=== PATIENT | female | born 1960 | race Caucasian/White ===

== ENCOUNTER 2017-07-07 07:08 | Day surgery (SDC) | payer OTHER, MEDICAID ==
[2017-07-07] MEDS ORDERED: LR 1,000 ML IV (07:30)
[2017-07-07] MEDS ORDERED: LIDOCAINE 2% INJ 100 MG/5 ML SDV (FOR ANES.) As Ordered (08:29)
[2017-07-07] MEDS ORDERED: PROPOFOL 200 MG/20 ML VIAL As Ordered (08:29)
[2017-07-07] MEDS ORDERED: fentaNYL 100 MCG/2 ML INJECTION (J3010) As Ordered (08:29)
[2017-07-07] MEDS ORDERED: KETOROLAC 60 MG/2 ML VIAL (J1885) As Ordered (08:29)
[2017-07-07] MEDS ORDERED: ONDANSETRON 4MG/2ML VIAL (J2405) As Ordered (08:29)
[2017-07-07] MEDS ORDERED: MIDAZOLAM INJ 2 MG/2 ML VIAL (J2250) As Ordered (08:30)
[2017-07-07] MEDS: BUPIVACAINE HCL 0.5% 10 ML VIAL As Ordered (08:47)
[2017-07-07] MEDS: LIDOCAINE 1% MDV 20ML VIAL As Ordered (08:47)
[2017-07-07] MEDS ORDERED: KETAMINE HCL 200 MG/20 ML VIAL As Ordered (09:19)
== END 2017-07-07 12:10 | disposition home or self-care (01) ==
LOC: M SDC 07:08
DX: M21.611 Bunion of right foot (principal); M20.41 Other hammer toe(s) (acquired), right foot; F43.10 Post-traumatic stress disorder, unspecified; F17.210 Nicotine dependence, cigarettes, uncomplicated
CPT/HCPCS: 28296

== ENCOUNTER 2017-08-08 18:57 | Emergency (ER) | payer OTHER, MEDICAID | END 2017-08-08 19:21 | disposition left against medical advice (07) | LOC: M ED 18:57 | DX: M79.676 Pain in unspecified toe(s) (principal); Z53.21 Procedure and treatment not carried out due to patient leaving prior to being seen by health care provider ==

== ENCOUNTER 2017-08-11 13:26 | Inpatient (IN) | payer OTHER, MEDICAID ==
[2017-08-11 13:54] LABS: ABG BASE EXCESS 1.7 (-2.0-2.0); ABG HCO3 27.2 MEQ/L (22.0-26.0); ABG O2 SATURATION 88.9 % (95.0-99.0); ABG PARTIAL PRESSURE CO2 45.7 mmHg (35.0-45.0); ABG PARTIAL PRESSURE O2 58.1 mmHg (75.0-100.0); ABG STANDARD HCO3 25.8 MEQ/L (22.0-26.0); ABG TOTAL CO2 28.6 MEQ/L (22.0-29.0); ABG pH (ARTERIAL) 7.393 UNITS (7.350-7.450)
[2017-08-11] MEDS: NS 1,000 ML IV (14:05)
[2017-08-11 14:09] LABS: HEMATOCRIT 43.5 % (36.0-47.0); HEMOGLOBIN 15.5 g/dl (12.0-15.5); MEAN CORPUSCULAR HEMOGLOBIN 33.9 pg (27.0-33.0); MEAN CORPUSCULAR HGB CONC 35.6 g/dl (32.0-36.5); MEAN CORPUSCULAR VOLUME 95.2 fl (80.0-96.0); PLATELET COUNT, AUTOMATED 214 10^3/uL (150-450); RED BLOOD COUNT 4.57 10^6/uL (4.00-5.40); RED CELL DISTRIBUTION WIDTH 13.2 % (11.5-14.5)
[2017-08-11 14:24] LABS: CONTROL LINE HCG INT CTR LINE PRESENT; HCG, SERUM QUALITATIVE NEGATIVE (NEGATIVE)
[2017-08-11 14:40] LABS: ACETAMINOPHEN LEVEL < 2.0 UG/ML (10.0-30.0); ALBUMIN 3.9 GM/DL (3.2-5.2); ALKALINE PHOSPHATASE 118 U/L (45-117); ALT/SGPT 86 U/L (12-78); ANION GAP 7 MEQ/L (8-16); AST/SGOT 73 U/L (7-37); BILIRUBIN,DIRECT < 0.1 MG/DL (0.0-0.2); BILIRUBIN,TOTAL 0.3 MG/DL (0.2-1.0); BLOOD UREA NITROGEN 7 MG/DL (7-18); CALCIUM LEVEL 8.6 MG/DL (8.5-10.1); CARBON DIOXIDE LEVEL 30 MEQ/L (21-32); CHLORIDE LEVEL 101 MEQ/L (98-107); CREATININE FOR GFR 0.61 MG/DL (0.55-1.30); ETHYL ALCOHOL (ETHANOL) 0.249 % (0.000-0.010); GLOMERULAR FILTRATION RATE > 60.0 (>51); GLUCOSE, FASTING 70 MG/DL (70-100); POTASSIUM SERUM 3.9 MEQ/L (3.5-5.1); SALICYLATE LEVEL 4.9 MG/DL (5.0-30.0); SODIUM LEVEL 138 MEQ/L (136-145); THYROID STIMULATING HORMONE 0.429 uIU/ML (0.358-3.740); TOTAL PROTEIN 6.9 GM/DL (6.4-8.2)
[2017-08-11 15:28] LABS: CK-MB VALUE MASS 1.8 NG/ML (<3.6); CPK CREATINE PHOSPHOKINASE 118 U/L (26-192); MAGNESIUM LEVEL 2.2 MG/DL (1.8-2.4); MB/CK RELATIVE INDEX 1.52 (< OR =4); TROPONIN I < 0.02 NG/ML (< 0.10)
[2017-08-11] MEDS: D5W/0.45% SODIUM CHLORIDE 1,000 ML IV (16:22)
[2017-08-11] MEDS: D5W/0.9% SODIUM CHLORIDE 1,000 ML IV (19:33)
[2017-08-11 20:25] LABS: ALBUMIN 3.4 GM/DL (3.2-5.2); ALBUMIN/GLOBULIN RATIO 1.31 (1.00-1.93); ALKALINE PHOSPHATASE 108 U/L (45-117); ALT/SGPT 79 U/L (12-78); AST/SGOT 57 U/L (7-37); BILIRUBIN,DIRECT 0.2 MG/DL (0.0-0.2); BILIRUBIN,TOTAL 0.4 MG/DL (0.2-1.0)
[2017-08-11] MEDS: SENOKOT S TAB PO (21:00)
[2017-08-11] MEDS: HEPARIN SOD (PORCINE) 5000 UNITS/ML VIAL SC (22:00)
[2017-08-11] MEDS: ONDANSETRON 4 MG TAB (S0181) PO (23:27)
[2017-08-12 00:13] LABS: AMPHETAMINES LEVEL URINE NEGATIVE (NEGATIVE); BARBITURATES URINE NEGATIVE (NEGATIVE); BENZODIAZEPINES URINE POSITIVE (NEGATIVE); CANNABINOIDS URINE NEGATIVE (NEGATIVE); COCAINE METABOLITE URINE NEGATIVE (NEGATIVE); METHADONE URINE NEGATIVE (NEGATIVE); OPIATES URINE NEGATIVE (NEGATIVE); PHENCYCLIDINE URINE NEGATIVE (NEGATIVE)
[2017-08-12 05:12] LABS: BASO % 0.3 % (0.0-1.0); EOS # 0.1 10^3/uL (0.0-0.50); EOS % 1.3 % (0.0-3.0); HEMOGLOBIN 14.3 g/dl (12.0-15.5); IMMATURE GRANULOCYTE % 0.3 % (0-3.0); LYMPH % 25.3 % (24.0-44.0); MEAN CORPUSCULAR HEMOGLOBIN 33.5 pg (27.0-33.0); MEAN CORPUSCULAR HGB CONC 34.9 g/dl (32.0-36.5); MONO # 0.7 10^3/uL (0.0-0.8); MONO % 8.7 % (0.0-5.0); NEUTROPHILS % 64.1 % (36.0-66.0); PLATELET COUNT, AUTOMATED 194 10^3/uL (150-450); RED BLOOD COUNT 4.27 10^6/uL (4.00-5.40); RED CELL DISTRIBUTION WIDTH 13.3 % (11.5-14.5); WHITE BLOOD COUNT 7.7 10^3/uL (4.0-10.0)
[2017-08-12 05:39] LABS: ALBUMIN 3.1 GM/DL (3.2-5.2); ALBUMIN/GLOBULIN RATIO 1.19 (1.00-1.93); ALKALINE PHOSPHATASE 94 U/L (45-117); ALT/SGPT 64 U/L (12-78); ANION GAP 4 MEQ/L (8-16); AST/SGOT 42 U/L (7-37); BILIRUBIN,TOTAL 0.6 MG/DL (0.2-1.0); BLOOD UREA NITROGEN 7 MG/DL (7-18); CALCIUM LEVEL 7.9 MG/DL (8.5-10.1); CARBON DIOXIDE LEVEL 27 MEQ/L (21-32); CHLORIDE LEVEL 111 MEQ/L (98-107); CREATININE FOR GFR 0.55 MG/DL (0.55-1.30); GLOMERULAR FILTRATION RATE > 60.0 (>51); GLUCOSE, FASTING 89 MG/DL (70-100); POTASSIUM SERUM 3.8 MEQ/L (3.5-5.1); SODIUM LEVEL 142 MEQ/L (136-145); TOTAL PROTEIN 5.7 GM/DL (6.4-8.2)
[2017-08-12] MEDS: D5W/0.9% SODIUM CHLORIDE 1,000 ML IV ×2 (06:20→15:10)
[2017-08-12] MEDS: HEPARIN SOD (PORCINE) 5000 UNITS/ML VIAL SC ×2 (06:20→14:00)
[2017-08-12 08:13] LABS: CPK CREATINE PHOSPHOKINASE 62 U/L (26-192); TROPONIN I < 0.02 NG/ML (< 0.10)
[2017-08-12 08:15] LABS: CK-MB VALUE MASS < 1.0 NG/ML (<3.6); MB/CK RELATIVE INDEX 1.61 (< OR =4)
[2017-08-12] MEDS: PANTOPRAZOLE 40MG TAB (PROTONIX) PO (09:10)
[2017-08-12] MEDS: FOLIC ACID 1 MG TAB PO (09:10)
[2017-08-12] MEDS: SENOKOT S TAB PO (09:11)
[2017-08-12] MEDS: MULTIVITAMINS/MINERALS THERAP 1 TAB PO (09:11)
[2017-08-12] MEDS: THIAMINE 100 MG TAB PO (09:11)
[2017-08-12] MEDS: OLANZapine 5 MG TAB PO (14:28)
[2017-08-12] MEDS: ONDANSETRON 4 MG TAB (S0181) PO (15:40)
== END 2017-08-12 16:00 | DRG 918 ==
LOC: M PCU 19:53 → M ED 13:26 → M ED INP 19:53 → M PCU 21:59
DX: T42.4X4A Poisoning by benzodiazepines, undetermined, initial encounter (principal); F32.9 Major depressive disorder, single episode, unspecified; F10.10 Alcohol abuse, uncomplicated; R74.0 Nonspecific elevation of levels of transaminase and lactic acid dehydrogenase [LDH]; F17.200 Nicotine dependence, unspecified, uncomplicated; Z79.899 Other long term (current) drug therapy; Z98.51 Tubal ligation status

== ENCOUNTER 2017-08-12 16:05 | Inpatient (IN) | payer OTHER, MEDICAID ==
[~2017-08-12 16:05] MED LIST: LORazepam 1 MG TAB PO; LORazepam 2 MG TAB PO; MAALOX 30 ML SUSP *UDC PO; MOM 30ML SUSPENSION UDC PO; diphenhydrAMINE 50 MG CAP PO
[2017-08-12] MEDS: CEPACOL LOZENGE PO (17:38)
[2017-08-12] MEDS: THIAMINE 100 MG TAB PO (17:38)
[2017-08-13] MEDS: FOLIC ACID 1 MG TAB PO (08:44)
[2017-08-13] MEDS: MULTIVITAMINS/MINERALS THERAP 1 TAB PO (08:44)
[2017-08-13] MEDS: THIAMINE 100 MG TAB PO (08:45)
[2017-08-13] MEDS: NICOTINE 7 MG/24 HR TRANSDERMAL TD (08:45)
[2017-08-13] MEDS: CEPACOL LOZENGE PO (08:46)
[2017-08-13] MEDS: ACETAMINOPHEN TAB 650MG DOSE (2X325MG) PO (11:18)
== END 2017-08-13 14:00 | disposition home or self-care (01) | DRG 882 ==
LOC: M PSY 16:05
DX: F43.10 Post-traumatic stress disorder, unspecified (principal); Z79.899 Other long term (current) drug therapy; Z98.51 Tubal ligation status; F17.210 Nicotine dependence, cigarettes, uncomplicated; R74.0 Nonspecific elevation of levels of transaminase and lactic acid dehydrogenase [LDH]

== ENCOUNTER 2017-10-18 11:10 | Emergency (ER) | payer OTHER, MEDICAID ==
[2017-10-18] MEDS: IPRATROPIUM 0.5MG/ALBUTEROL 2.5MG INH SOL UD 3ML (DUONEB)(J7620) NEB (12:11)
[2017-10-18 12:13] LABS: BASO % 0.5 % (0.0-1.0); EOS # 0.1 10^3/uL (0.0-0.50); EOS % 0.9 % (0.0-3.0); HEMATOCRIT 44.6 % (36.0-47.0); HEMOGLOBIN 15.5 g/dl (12.0-15.5); IMMATURE GRANULOCYTE % 0.4 % (0-3.0); LYMPH # 2.1 10^3/uL (1.5-4.5); MEAN CORPUSCULAR HEMOGLOBIN 34.2 pg (27.0-33.0); MEAN CORPUSCULAR HGB CONC 34.8 g/dl (32.0-36.5); MEAN CORPUSCULAR VOLUME 98.5 fl (80.0-96.0); MONO # 0.8 10^3/uL (0.0-0.8); MONO % 8.9 % (0.0-5.0); NEUTROPHILS # 5.5 10^3/uL (1.8-7.7); NEUTROPHILS % 64.3 % (36.0-66.0); PLATELET COUNT, AUTOMATED 226 10^3/uL (150-450); RED BLOOD COUNT 4.53 10^6/uL (4.00-5.40); RED CELL DISTRIBUTION WIDTH 12.4 % (11.5-14.5); WHITE BLOOD COUNT 8.5 10^3/uL (4.0-10.0)
[2017-10-18 12:16] LABS: CARBOXYHEMOGLOBIN 4.6 % (0.0-1.5)
== END 2017-10-18 12:54 | disposition home or self-care (01) ==
LOC: M ED 11:10
DX: J70.5 Respiratory conditions due to smoke inhalation (principal); F33.9 Major depressive disorder, recurrent, unspecified; F41.9 Anxiety disorder, unspecified; Z87.891 Personal history of nicotine dependence; Z79.899 Other long term (current) drug therapy
CPT/HCPCS: 71046

== ENCOUNTER 2017-11-09 00:57 | Emergency (ER) | payer OTHER, MEDICAID | END 2017-11-09 01:13 | disposition left against medical advice (07) | LOC: M ED 01:13 | DX: Z53.29 Procedure and treatment not carried out because of patient's decision for other reasons (principal) ==

== ENCOUNTER 2017-11-09 08:59 | Emergency (ER) | payer MEDICAID, OTHER | END 2017-11-09 09:43 | disposition home or self-care (01) | LOC: M ED 08:59 | DX: B02.9 Zoster without complications (principal); F33.9 Major depressive disorder, recurrent, unspecified; Z79.899 Other long term (current) drug therapy; F17.210 Nicotine dependence, cigarettes, uncomplicated | CPT/HCPCS: 99282 ==

== ENCOUNTER 2017-12-15 12:22 | Emergency (ER) | payer MEDICAID, OTHER | END 2017-12-15 13:55 | disposition home or self-care (01) | LOC: M ED 12:22 | DX: Z76.0 Encounter for issue of repeat prescription (principal); F41.1 Generalized anxiety disorder; F33.9 Major depressive disorder, recurrent, unspecified; B02.9 Zoster without complications; Z79.899 Other long term (current) drug therapy; F10.11 Alcohol abuse, in remission; F17.210 Nicotine dependence, cigarettes, uncomplicated | CPT/HCPCS: 99284 ==

== ENCOUNTER → 2018-01-08 | Outpatient (REF) | payer MEDICAID, OTHER ==
[~2018-01-08] MED LIST changes: +AMBI10TA PO; +AMBI5TAB PO; +BENA25CA4 PO; +BUPR150T3 PO; +BUPR15TA PO; +FOLI1TAB5 PO; +HYDR-3713 PO; -LORazepam 1 MG TAB PO; -LORazepam 2 MG TAB PO; -MAALOX 30 ML SUSP *UDC PO; +MACR100C43 PO; -MOM 30ML SUSPENSION UDC PO; +PATIENT COMMENTS; +THIA100TA PO; +VALA1TAB2 PO; +VENTAER INH; +VITMTA PO; +XANA0.5T PO; +ZOFR4TAB14 PO; -diphenhydrAMINE 50 MG CAP PO
== END ==
LOC: M LAB REF 21:27
PROVIDERS: ATTEND Physician Assistant
DX: L98.9 Disorder of the skin and subcutaneous tissue, unspecified (principal)

== ENCOUNTER 2018-01-25 11:31 | Emergency (ER) | payer MEDICAID, OTHER ==
[2018-01-25] MEDS: ONDANSETRON 4 MG ORAL DISINTEGRATING TAB (Q0162 PER 1MG) PO (12:22)
[2018-01-25 14:04] LABS: KETONE, URINE AUTO RFX NEGATIVE (NEGATIVE); NITRITE, URINE AUTO RFX NEGATIVE (NEGATIVE); RBC, URINE AUTO RFX 28 /HPF (0-3); SPECIFIC GRAVITY UR AUTO RFX 1.008 (1.002-1.035); SQUAM EPITHELIAL CELL UR AURFX 5 /HPF (0-6)
[2018-01-25 14:07] LABS: LEUKOCYTE ESTERASE UR AUTO RFX 3+ (NEGATIVE); WBC, URINE AUTO RFX TNTC /HPF (0-3)
== END 2018-01-25 14:00 | disposition home or self-care (01) ==
LOC: M ED 11:31
DX: N30.00 Acute cystitis without hematuria (principal); B96.20 Unspecified Escherichia coli [E. coli] as the cause of diseases classified elsewhere; R11.2 Nausea with vomiting, unspecified; R19.7 Diarrhea, unspecified; B02.9 Zoster without complications; F10.10 Alcohol abuse, uncomplicated; F17.210 Nicotine dependence, cigarettes, uncomplicated; Z79.899 Other long term (current) drug therapy
CPT/HCPCS: Q0162

== ENCOUNTER → 2018-02-02 | Outpatient (REF) | payer MEDICAID, OTHER ==
[2018-02-02 13:13] LABS: APPEARANCE, URINE HAZY (CLEAR); BACTERIA, URINE AUTO 1+ (NEGATIVE); BILIRUBIN, URINE AUTO NEGATIVE (NEGATIVE); BLOOD, URINE BLOOD NEGATIVE (NEGATIVE); COLOR, URINE YELLOW (YELLOW); GLUCOSE, URINE (UA) AUTO NEGATIVE (NEGATIVE); KETONE, URINE AUTO NEGATIVE (NEGATIVE); LEUKOCYTE ESTERASE, URINE AUTO 3+ (NEGATIVE); MUCUS, URINE SMALL (NEGATIVE); NITRITE, URINE AUTO NEGATIVE (NEGATIVE); PROTEIN, URINE AUTO NEGATIVE (NEGATIVE); RBC, URINE AUTO 6 /HPF (0-3); SPECIFIC GRAVITY URINE AUTO 1.011 (1.002-1.035); SQUAMOUS EPITHELIAL CELL UR AU 2 /HPF (0-6); UROBILINOGEN, URINE AUTO 0.2 mg/dL (0.0-2.0); WBC, URINE AUTO TNTC /HPF (0-3)
== END ==
LOC: M LAB REF 12:55
PROVIDERS: ATTEND Nurse Practitioner Women's Health
DX: N39.0 Urinary tract infection, site not specified (principal)

== ENCOUNTER 2018-05-15 15:57 | Inpatient (IN) | payer MEDICAID ==
[~2018-05-15 15:57] MED LIST changes: +FOLI1TAB11 PO; -FOLI1TAB5 PO
[2018-05-15] MEDS ORDERED: PROPOFOL 1,000 MG/100 ML VIAL As Ordered ONE (16:10)
[2018-05-15 16:21] LABS: BASO # 0.1 10^3/uL (0.0-0.2); BASO % 0.3 % (0.0-1.0); HEMATOCRIT 45.5 % (36.0-47.0); HEMOGLOBIN 15.7 g/dl (12.0-15.5); LYMPH # 1.7 10^3/uL (1.5-4.5); LYMPH % 9.6 % (24.0-44.0); MEAN CORPUSCULAR HEMOGLOBIN 34.3 pg (27.0-33.0); MEAN CORPUSCULAR HGB CONC 34.5 g/dl (32.0-36.5); MEAN CORPUSCULAR VOLUME 99.3 fl (80.0-96.0); MONO % 6.1 % (0.0-5.0); NEUTROPHILS # 14.1 10^3/uL (1.8-7.7); NEUTROPHILS % 81.9 % (36.0-66.0); PLATELET COUNT, AUTOMATED 156 10^3/uL (150-450); RED BLOOD COUNT 4.58 10^6/uL (4.00-5.40); WHITE BLOOD COUNT 17.2 10^3/uL (4.0-10.0)
[2018-05-15 16:44] LABS: INR 0.92; PROTHROMBIN TIME 12.5 SECONDS (12.1-14.4)
[2018-05-15 16:53] LABS: AMPHETAMINES LEVEL URINE NEGATIVE (NEGATIVE); BARBITURATES URINE NEGATIVE (NEGATIVE); BENZODIAZEPINES URINE NEGATIVE (NEGATIVE); CANNABINOIDS URINE NEGATIVE (NEGATIVE); COCAINE METABOLITE URINE NEGATIVE (NEGATIVE); METHADONE URINE NEGATIVE (NEGATIVE); OPIATES URINE NEGATIVE (NEGATIVE); PHENCYCLIDINE URINE NEGATIVE (NEGATIVE)
[2018-05-15] MEDS ORDERED: NS 1,000 ML IV ONE (17:00)
[2018-05-15] MEDS ORDERED: PANTOPRAZOLE 40MG INJ (PROTONIX) (C9113) IV ONE (17:00)
--- NOTE | 2018-05-15 17:00 | REP ---
CT of the brain without IV contrast: There are no comparisons. There is a large right frontal temporal scalp contusion. There is no calvarial fracture. There is no subdural or epidural hematoma. There is no acute intracranial hemorrhage otherwise. Ventricles are normal size and midline. The cortical stripe is unremarkable. The visualized paranasal sinuses and mastoid air cells are clear. Impression: Large right frontal temporal scalp contusion. Otherwise, negative CT study of the brain. Electronically Signed by Saul Iverson MD 05/15/2018 04:52 P
--- NOTE | 2018-05-15 17:08 | REP ---
Maxillofacial CT: Axial images are acquired helical scanning and a reformatted sagittal and coronal projections. There is a large right frontal temporal scalp contusion. There is no nasal bone fracture. There is no zygoma fracture. There is no orbit fracture. No paranasal sinus fracture. The mastoid air cells are clear. There is no mandibular fracture. The skull base and sella turcica are unremarkable. Impression: No maxillofacial fracture is identified. There is a nasogastric tube and endotracheal tube. There is a large right frontal temporal scalp contusion. Electronically Signed by Saul Iverson MD 05/15/2018 05:00 P
[2018-05-15 17:20] LABS: ACETAMINOPHEN LEVEL < 2.0 UG/ML (10.0-30.0); ALBUMIN 4.4 GM/DL (3.2-5.2); ALT/SGPT 70 U/L (12-78); BILIRUBIN,DIRECT 0.3 MG/DL (0.0-0.2); BILIRUBIN,TOTAL 0.9 MG/DL (0.2-1.0); BLOOD UREA NITROGEN 10 MG/DL (7-18); CALCIUM LEVEL 8.5 MG/DL (8.5-10.1); CARBON DIOXIDE LEVEL 15 MEQ/L (21-32); CHLORIDE LEVEL 84 MEQ/L (98-107); CPK CREATINE PHOSPHOKINASE 799 U/L (26-192); CREATININE FOR GFR 1.14 MG/DL (0.55-1.30); ETHYL ALCOHOL (ETHANOL) < 0.003 % (0.000-0.010); GLOMERULAR FILTRATION RATE 51.9 (>51); GLUCOSE, FASTING 153 MG/DL (70-100); MB/CK RELATIVE INDEX 2.63 (< OR =4); POTASSIUM SERUM 3.8 MEQ/L (3.5-5.1); SODIUM LEVEL 123 MEQ/L (136-145); THYROID STIMULATING HORMONE 0.524 uIU/ML (0.358-3.740); TOTAL PROTEIN 7.5 GM/DL (6.4-8.2); TROPONIN I 0.02 NG/ML (< 0.10)
[2018-05-15] MEDS ORDERED: MIDAZOLAM HCL 50 MG in D5W 40 ML IV SCH (17:30)
[2018-05-15] MEDS ORDERED: MIDAZOLAM INJ 2 MG/2 ML VIAL (J2250) IV ONE (17:30)
[2018-05-15] MEDS ORDERED: ETOMIDATE INJ 20MG/10ML VIAL IV STA (17:34)
[2018-05-15] MEDS ORDERED: SUCCINYLCHOLINE INJ 200 MG/10 ML VIAL (J0330) IV STA (17:34)
[2018-05-15] MEDS ORDERED: PROPOFOL 1,000 MG in APPROPRIATE DILUENT 1 EA IV SCH (17:40)
[2018-05-15 17:49] LABS: ABG BASE EXCESS -3.4 (-2.0-2.0); ABG HCO3 20.5 MEQ/L (22.0-26.0); ABG O2 SATURATION 99.5 % (95.0-99.0); ABG PARTIAL PRESSURE CO2 33.7 mmHg (35.0-45.0); ABG PARTIAL PRESSURE O2 234.9 mmHg (75.0-100.0); ABG STANDARD HCO3 21.7 MEQ/L (22.0-26.0); ABG TOTAL CO2 21.6 MEQ/L (22.0-29.0); ABG pH (ARTERIAL) 7.403 UNITS (7.350-7.450)
[2018-05-15] MEDS ORDERED: REFRIGERATOR IV KEYS XX PRN (18:15)
[2018-05-15] MEDS ORDERED: cefTRIAXone SOD 1 GM in D5W MINI-BAG PLUS 50 ML IV ONE (18:15)
[2018-05-15] MEDS ORDERED: ETOMIDATE INJ 20MG/10ML VIAL ONE (18:28)
[2018-05-15] MEDS ORDERED: SUCCINYLCHOLINE 100 MG/5 ML SYRINGE (J0330) ONE (18:28)
[2018-05-15] MEDS: PROPOFOL 1,000 MG in APPROPRIATE DILUENT 1 EA IV SCH ×2 (18:45→21:52)
[2018-05-15 19:09] LABS: PHOSPHORUS LEVEL 3.7 MG/DL (2.5-4.9)
[2018-05-15 20:00] VITALS: BP 125/79
[2018-05-15] MEDS: MIDAZOLAM HCL 100 MG in D5W 80 ML IV SCH (20:00)
[2018-05-15] MEDS ORDERED: MULTIVITAMIN -ADULT INJECTION 10 ML, THIAMINE INJection 100 MG, FOLIC ACID 1 MG in NS 1... IV ONE (20:00)
[2018-05-15 20:46] VITALS: O2SAT 100
[2018-05-15] MEDS: NS 1,000 ML IV SCH (20:49)
[2018-05-15] MEDS: OCTREOTIDE ACETATE 1,200 MCG in NS 238.8 ML IV SCH (20:50)
[2018-05-15] MEDS: PANTOPRAZOLE SODIUM 40 MG in D5W 50 ML IV SCH (20:52)
[2018-05-15] MEDS: CHLORHEXIDINE GLUCONATE 0.12 % 15ML UDC (PERIDEX ORAL RINSE) MT SCH (20:52)
[2018-05-15 21:00] VITALS: BP 106/65
--- NOTE | 2018-05-15 21:13 | ECGEPIP ---
Stationary ECG Study 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
--- NOTE | 2018-05-15 21:33 | HPE ---
DATE OF ADMISSION: 05/15/2018 Patient is a 57-year-old female with a past medical history of depression and posttraumatic stress disorder (PTSD). Patient also with a history of alcohol abuse and possible cirrhosis. History was obtained from the chart and from emergency department (ED), as patient is unresponsive and intubated and unable to provide a history. There is no family or friends at the bedside, as well. As per Emergency Medical Service (EMS), patient had reportedly fallen yesterday and bruised her right eye and the front of her face. She had sustained another fall today, which was unwitnessed and EMS was called by a concerned neighbor, who had seen her yesterday and had gone back to check on her today. As per EMS, patient also had been drinking alcohol leading up to these falls. Patient was unresponsive on their arrival and she was also noted to have a seizure en route to the ED. Upon arrival to the ED, patient was mumbling, but not verbalizing clearly and not able to follow commands appropriately. She was also noted to have what appeared to be possible hematemesis on her, as well as blood from a scalp laceration. The patient was intubated for airway protection and was given normal saline running with 1 liter bolus. She also had lico done to her right posterior scalp laceration. Patient was given etomidate and succinylcholine for intubation and later started on a propofol drip at supratherapeutic doses, given her agitation. Patient required multiple ED staff to restrain her, as she continued to be agitated and combative. Patient had an orogastric gastrostomy (OG) tube placed to suction, which had dark red, bloody output. She was also transported for imaging of her CT head, spine and sinuses. PAST MEDICAL AND SURGICAL HISTORY: 1. Depression and posttraumatic stress disorder (PTSD) with an admission for a prior suicide attempt. 2. Alcohol abuse. Reportedly was on lactulose, as per EMS. 3. History of right bunionectomy and hammer toe. 4. Tubal ligation and reversal. 5. History of shingles. SOCIAL HISTORY: As per chart, patient is . She was unemployed and getting [employer] pension from her , who had . She reportedly lives alone. There is documentation that she has a daughter, although there was no family here in the ED. There are also reports of a history of alcohol abuse in her previous documentation and possible marijuana use in the past. ALLERGIES: No known medication allergies. HOME MEDICATIONS: Unclear. Previously reported to be on: - Wellbutrin - Ambien - Xanax - Valacyclovir As well as previous documentation for: - thiamine - folate - multivitamin PHYSICAL EXAMINATION: Temperature 98.3, pulse 111, respiratory rate 30, blood pressure 150/81, saturating 100% on the ventilator; initially it was on 100% FiO2, later brought down to 40%. GENERAL: Patient is lying in bed, noted to have ecchymosis on her right eye, but with extreme periorbital edema, as well as edema in her front scalp. She has a lesser amount of bruising noted in her left periorbital region. She is also noted to have dried blood in her hair and has a posterior scalp lesion with lico in place. Patient also has some mild bruising noted on to the side of her face. She did not appear to have any significant bruising in her hands or on her knees or on her abdomen. She is intubated and has an orogastric gastrostomy (OG) tube in place. HEENT: Unable to open up her right eye, given the amount of swelling and edema. Her left eye pupil is reactive to light. She has some dried blood secretions from her mouth, as well as dried blood noted in her hair. The previously described contusion and swelling in her frontal scalp is also seen. CARDIOVASCULAR SYSTEM: Tachycardic. Normal S1, S2. Unable to appreciate any murmurs. LUNGS: Coarse ventilated breath sounds bilaterally, but no wheezing, rales or rhonchi. ABDOMEN: Soft. Does not appear distended. EXTREMITIES: There is no lower extremity edema. There is no significant bruising noted to her lower extremities. LABORATORY DATA: WBC 17.2, hemoglobin 15.7, platelets 156. Chemistry: Sodium 123, potassium 3.8, chloride 84, bicarbonate 15, BUN 10, creatinine 1.14, anion gap 24, glucose 153, initial lactate was 13.7. Total bilirubin 0.9, AST 91, ALT 70, alkaline phosphatase 147, ammonia level 113. CPK 799. Troponin 0.02. TSH was normal. Coagulation profile: INR 0.92. Urinary toxicology screen negative. Tylenol and salicylate levels were negative. Alcohol level was also negative. Arterial blood gas (ABG): pH was 7.403, pCO2 33.7, pO2 234.9 IMAGING: Head CT and maxillofacial CT did not show any subdural or epidural hematoma. There was no acute intracranial hemorrhage. There is a large right frontal temporal scalp contusion, but no intraparenchymal bleeding. In the maxillofacial CT, there are no fractures identified, no mandibular fracture or paranasal sinus fracture and no nasal bone fracture. There is also no zygoma fracture or orbital fracture. On the chest x-ray, the initial chest x-ray showed a right main stem intubation. Repeat chest x-ray showed the endotracheal (ET) tube at the level of the kip and was pulled back reportedly 1 cm. There are no focal opacities in the lung page. There are no pleural effusions. ASSESSMENT AND PLAN: Patient is a 57-year-old female with a reported medical history of alcohol abuse, depression and posttraumatic stress disorder (PTSD), who was brought in my EMS after being found unresponsive in the home with a reported history of falls, possibly in the setting of alcohol use. She was noted to have a contusion on her right eye and her right frontal scalp, as well as a scalp laceration in the posterior of her scalp. She also had what appeared to be possible hematemesis as well. On arrival, patient was minimally responsive and was intubated for airway protection. She had imaging done, which did not show any acute hematoma, intraparenchymal bleed in her brain, except for the scalp laceration. She did not have any evidence of fractures to any of her facial bones on the maxillofacial CT. 1. Neurologic. Patient presented with altered mental status, has a history of alcohol abuse, as well as depression. There was report that she may have been on lactulose at home, but is unable to confirm at this time. She did have an elevated ammonia level on labs. Her urine toxicology was negative and her alcohol level was negative. Patient's altered mental status and seizure may have been in the setting of alcohol withdrawal, especially given her history of alcohol abuse and her negative alcohol level on admission to the ED. She was also on Wellbutrin potentially as an outpatient, which can also lower her seizure threshold. Patient may also have a component of hepatic encephalopathy as well, contributing to her altered mental status. There was no evidence of any epidural bleed or subdural hematoma on her head CT. She did have a laceration and a contusion on her right frontal scalp and her right eye secondary to falls. Continue with seizure precautions. Given the possibility of hepatic encephalopathy, will give her rifaximin, but hold off on lactulose, given her possible gastrointestinal (GI) bleed. Continue with sedation while intubated. She is on propofol and still agitated; therefore, will add a Versed drip as well, especially given the concern for alcohol withdrawal. Will supplement with thiamine, folate and multivitamin. 2. Cardiovascular. Patient was hypertensive and tachycardic in the ED, likely in the setting of alcohol withdrawal. She had a femoral triple lumen catheter placed for intravenous (IV) access. We will continue to monitor her blood pressures at this time. Her lactate was elevated, possibly in the setting of her seizure. She was given 1 liter normal saline bolus. We will give her another liter with a banana bag and continue with normal saline for fluid hydration and follow up a repeat lactate. We will get an EKG given her tachycardia and repeat a troponin and cardiac markers. 3. Pulmonary. Patient was intubated for airway protection in the setting of altered mental status. Her chest x-ray did not show any focal opacities or infiltrates. Will continue her with pressure-regulated volume control (PRVC) in the setting of 420/14/40 and 5 and follow up with daily ABGs and chest x-rays while intubated. Continue with vent bundle with head of bed elevation and chlorhexidine mouthwash. 4. Gastrointestinal (GI). Patient has a history of alcohol abuse, possible cirrhosis, given her increased ammonia level and potentially being on lactulose as an outpatient. Patient appeared to have an episode of hematemesis, likely in the setting of her alcohol abuse, with a questionable history of esophageal varices. Will continue with a proton pump inhibitor (PPI) drip and octreotide, given the concern for esophageal varices. Will continue with ceftriaxone for spontaneous bacterial peritonitis (SBP) prophylaxis. Will get an abdominal ultrasound to further evaluate. Will continue to monitor her liver function. Appreciate GI consult for her acute GI bleed. She has an orogastric gastrostomy (OG) tube in for low intermittent suction and we will keep her nothing by mouth for now. Patient has two 20 gauge IVs in the antecubital, as well as a femoral triple lumen catheter for IV access. She has an active type and screen and we will continue to trend her CBCs. 5. Renal. Patient is noted to be hyponatremic, likely in the setting of her alcohol abuse, possible beer potomania versus cirrhosis. She was also noted to have some mildly elevated creatinine, likely prerenal, secondary to decreased by mouth intake. Will continue to monitor her renal function. She has a [place] placed. Will monitor her input and output and monitor her electrolytes and replete as needed. She is getting normal saline for maintenance fluids and is status post one bolus 1 liter normal saline as well with the banana bag. Patient's fingerstick glucose was elevated. There is no documented history of diabetes. Will continue with fingerstick glucose checks and coverage with insulin if needed. 6. DVT prophylaxis with sequential compression devices (SCDs) given acute GI bleed. 7. FULL CODE: Will attempt to get family contact information. Total critical care time spent, not including any procedures: Approximately 2 hours and 10 minutes.
[2018-05-15 22:00] VITALS: BP 110/72
[2018-05-15 22:57] LABS: MB/CK RELATIVE INDEX 2.46 (< OR =4); TROPONIN I 2.11 NG/ML (< 0.10)
[2018-05-15 23:00] VITALS: BP 121/73
[2018-05-16] VITALS (26 sets, daily range): BP systolic 110–137; BP diastolic 62–90; O2SAT 98–100
[2018-05-16] MEDS: fentaNYL 100 MCG/2 ML INJECTION (J3010) IV PRN ×4 (00:26→08:00)
[2018-05-16] MEDS: PANTOPRAZOLE SODIUM 40 MG in D5W 50 ML IV SCH ×6 (00:40→20:11)
[2018-05-16] MEDS: NS 1,000 ML IV SCH ×2 (00:44→02:30)
[2018-05-16] MEDS: PROPOFOL 1,000 MG in APPROPRIATE DILUENT 1 EA IV SCH ×5 (02:25→23:53)
--- NOTE | 2018-05-16 04:33 | REP ---
Clinical: Cirrhosis. Technique: Real time black scale ultrasound examination using curved array transducer. Findings: The liver is slightly increased in echotexture and density with a subtle micronodular contour consistent with a history of cirrhosis. No focal hepatic lesion identified. Spleen is normal in size, appearance and echogenicity. Spleen measures 9.9 x 5.1 x 6.5 cm. The pancreas is incompletely evaluated due to interposed bowel gas but visualized portions appear normal. Gallbladder demonstrates small amount of layering sludge without wall thickening or pericholecystic fluid. No biliary ductal dilatation is appreciated and the common bile duct measures 4.3 mm diameter. Bilateral kidneys are normal in appearance and echogenicity without hydronephrosis. Right kidney measures 10.4 x 4.7 x 4.3 cm. Left kidney measures 10.9 x 5.0 x 4.9 cm. Abdominal aorta appears normal and measures 2 cm maximal diameter. No ascites. Impression: Findings consistent with cirrhosis. No focal hepatic lesion identified. Electronically Signed by Christian Butcher MD 05/16/2018 04:24 A
[2018-05-16 04:52] LABS: HEMATOCRIT 31.9 % (36.0-47.0); MEAN CORPUSCULAR HEMOGLOBIN 34.3 pg (27.0-33.0); MEAN CORPUSCULAR HGB CONC 35.4 g/dl (32.0-36.5); PLATELET COUNT, AUTOMATED 102 10^3/uL (150-450); RED BLOOD COUNT 3.29 10^6/uL (4.00-5.40); WHITE BLOOD COUNT 10.6 10^3/uL (4.0-10.0)
[2018-05-16 04:53] LABS: HEMOGLOBIN 11.3 g/dl (12.0-15.5)
[2018-05-16 05:35] LABS: ABG BASE EXCESS -3.2 (-2.0-2.0); ABG HCO3 21.3 MEQ/L (22.0-26.0); ABG O2 SATURATION 98.3 % (95.0-99.0); ABG PARTIAL PRESSURE CO2 36.2 mmHg (35.0-45.0); ABG PARTIAL PRESSURE O2 119.1 mmHg (75.0-100.0); ABG STANDARD HCO3 21.8 MEQ/L (22.0-26.0); ABG TOTAL CO2 22.4 MEQ/L (22.0-29.0); ABG pH (ARTERIAL) 7.387 UNITS (7.350-7.450)
[2018-05-16 05:45] LABS: ALBUMIN 2.9 GM/DL (3.2-5.2); ALT/SGPT 47 U/L (12-78); BILIRUBIN,TOTAL 0.8 MG/DL (0.2-1.0); BLOOD UREA NITROGEN 9 MG/DL (7-18); CALCIUM LEVEL 7.2 MG/DL (8.5-10.1); CARBON DIOXIDE LEVEL 24 MEQ/L (21-32); CHLORIDE LEVEL 100 MEQ/L (98-107); CREATININE FOR GFR 0.68 MG/DL (0.55-1.30); GLOMERULAR FILTRATION RATE > 60.0 (>51); GLUCOSE, FASTING 128 MG/DL (70-100); MAGNESIUM LEVEL 2.1 MG/DL (1.8-2.4); PHOSPHORUS LEVEL 2.7 MG/DL (2.5-4.9); POTASSIUM SERUM 3.6 MEQ/L (3.5-5.1); SODIUM LEVEL 133 MEQ/L (136-145); TOTAL PROTEIN 5.2 GM/DL (6.4-8.2); TROPONIN I 1.77 NG/ML (< 0.10)
--- NOTE | 2018-05-16 06:57 | RO ---
DATE OF PROCEDURE: 05/15/2018 INDICATION: Venous access. PREPROCEDURE DIAGNOSIS: Gastrointestinal (GI) bleed. POSTPROCEDURE DIAGNOSIS: GI bleed. PROCEDURE: Central line. SURGEON: Dr. Heydi Bearden CONSENT: The procedure was performed emergently and permission was implied because of the emergent nature. There was no family at bedside to discuss consent with. PROCEDURE SUMMARY: A time out was performed. My hands were washed immediately prior to the procedure. Full sterile technique was maintained throughout the procedure including surgical cap, mask with protective eye wear, full gown and sterile gloves. The patient was flat in the bed. Her left femoral groin region was prepped using chlorhexidine and Betadine and draped in sterile fashion using a fenestrated drape. A sterile probe cover was employed. The femoral vein was identified using the ultrasound. Anesthesia was achieved using 1% lidocaine. Using real time out of plane guidance, the introducer needle was inserted into the femoral vein under direct ultrasound visualization. Venous blood was withdrawn. The syringe was removed and a guidewire was advanced into the introducer needle. The introducer needle was then removed over the guidewire. A small incision was made at the skin surface with a scalpel and a dilator was exchanged over the guidewire. After appropriate dilation was obtained, the dilator was exchanged over the wire for a triple lumen central venous catheter. The wire was removed and the catheter was sutured in place. A sterile CHD impregnated dressing was placed over the catheter at the insertion site. The patient tolerated the procedure without any hemodynamic compromise. At the time of procedure completion, all ports were aspirated and flushed properly. Estimated blood loss was less than 5 mL. [facility]
--- NOTE | 2018-05-16 07:59 | REP ---
CT of the cervical spine without IV contrast: There are no comparisons. Axial images are acquired helical scanning and a reformatted sagittal and coronal projections. There is an endotracheal tube and nasogastric tube. The skull base, C1-C2 are unremarkable except for osteoarthritis at the Nadira and anterior arch of C1. Vertebral body heights and alignment are normal. There is no listhesis. There is multilevel degenerative disc disease from C3-C7. The facet articulations are normally aligned. The prevertebral soft tissues are unremarkable. There are no posterior element fractures. Impression: There is no fracture or listhesis. There is multilevel degenerative disc disease. There is an endotracheal tube and nasogastric tube. Depending on symptomatology consider follow-up MRI to evaluate for nerve root compression or cord injury. Electronically Signed by Saul Iverson MD 05/16/2018 07:50 A
--- NOTE | 2018-05-16 08:02 | REP ---
Kurt portable chest, single AP supine view, 05:09 p.m.: The endotracheal tube has been repositioned from the study at 05:04 p.m. and of the tip is at the kip but not selectively in the right or left main stem bronchi. There is a nasogastric tube terminating satisfactorily in the stomach. Lung page are clear. Cardiac size is normal. Electronically Signed by Saul Iverson MD 05/16/2018 07:54 A
--- NOTE | 2018-05-16 08:04 | REP ---
Portable chest, single AP supine view, 05:04 p.m.: Comparison is the 2017. There is an endotracheal tube with the tip selectively in the bronchus intermedius. Lung page are clear. Cardiac size is normal. There is a nasogastric tube terminating satisfactorily in the stomach. Electronically Signed by Saul Iverson MD 05/16/2018 07:56 A
[2018-05-16] MEDS: FOLIC ACID 1 MG TAB PO SCH (08:08)
[2018-05-16] MEDS: THIAMINE HCL 200 MG/2 ML VIAL (J3411) IV SCH (08:08)
[2018-05-16] MEDS: MULTIVITAMINS/MINERALS THERAP 1 TAB PO SCH (08:08)
[2018-05-16] MEDS: CHLORHEXIDINE GLUCONATE 0.12 % 15ML UDC (PERIDEX ORAL RINSE) MT SCH ×2 (08:08→21:21)
[2018-05-16] MEDS: D5W 1,000 ML IV SCH ×3 (08:15→20:02)
--- NOTE | 2018-05-16 08:19 | REP ---
Portable chest, 06:57 a.m., single AP semi upright view: Comparison is 05/15/2018 and 05:09 p.m.: The patient is rotated. The endotracheal tube remains at the kip but not selectively in the right or left main stem bronchi. The lung page remain clear. Cardiac size is normal. The nasogastric tube remains in satisfactory position, terminating in the stomach. There is a electronic device superimposed over the chest. Electronically Signed by Saul Iverson MD 05/16/2018 08:11 A
[2018-05-16] MEDS ORDERED: cefTRIAXone SOD 2 GM in D5W MINI-BAG PLUS 50 ML IV SCH (09:00)
[2018-05-16] MEDS: MIDAZOLAM HCL 100 MG in D5W 80 ML IV SCH (12:57)
[2018-05-16 13:43] LABS: BLOOD UREA NITROGEN 7 MG/DL (7-18); CALCIUM LEVEL 7.4 MG/DL (8.5-10.1); CARBON DIOXIDE LEVEL 25 MEQ/L (21-32); CHLORIDE LEVEL 101 MEQ/L (98-107); CREATININE FOR GFR 0.77 MG/DL (0.55-1.30); GLOMERULAR FILTRATION RATE > 60.0 (>51); GLUCOSE, FASTING 195 MG/DL (70-100); POTASSIUM SERUM 3.7 MEQ/L (3.5-5.1); SODIUM LEVEL 134 MEQ/L (136-145)
--- NOTE | 2018-05-16 14:00 | CCN ---
DATE: 05/16/2018 The patient was seen and examined this morning during bedside rounds. Overnight, the patient has remained sedated on propofol and Versed. She had no fevers overnight. Her blood pressures have remained stable. PHYSICAL EXAMINATION: Temperature 98.3, pulse 98, respirations 24, blood pressure 129/90, oxygen saturation 98% on 4 liters FiO2. GENERAL: The patient is lying, intubated and sedated. She continues to have ecchymosis around her right eye and to a lesser degree on her left eye. The previously noted right periorbital edema has improved. She does continue to have edema in her right frontal scalp area. The patient also has some mild bruising noted to the side of her face. HEENT: Eyes are able to be opened now and her pupils are small but reactive bilaterally. NECK: Supple. Trachea is midline. No palpable adenopathy. CARDIOVASCULAR: Regular rate and rhythm. Normal S1, S2. There appears to be an extra heart sound versus a faint murmur. LUNGS: Coarse ventilator breath sounds bilaterally. No wheezing, rales or rhonchi. ABDOMEN: Soft, does not appear distended. Did not appear to have a significant fluid wave. EXTREMITIES: There is no lower extremity bilaterally. No significant bruising noted to her lower extremities. LABORATORIES: WBC 10.6, hemoglobin 11.3, platelets 102. Chemistry: Sodium 133, potassium 3.6, chloride 100, bicarbonate 24, BUN 9, creatinine 0.68, glucose 128, CPK increased to 1587, troponin decreasing to 1.77. ABG showed pH 7.387, PCO2 of 36.2, PO2 of 119.1. Lactic acid decreased to 2.9. IMAGING: Abdominal ultrasound showed evidence of cirrhosis. There are no gallstones or biliary duct dilation. Pancreas was incompletely evaluated but the portions that were seen appeared normal. There is no evidence of ascites. No hydronephrosis noted in the kidneys bilaterally. Chest x-ray this morning showed the endotracheal tube at the level of the kip. She appears to be rotated slightly. There are some coarse increased interstitial markings that appear unchanged. ASSESSMENT AND PLAN: The patient is a 57-year-old female with a history of alcohol abuse, depression, posttraumatic stress disorder (PTSD), who was brought in by emergency medical services (EMS) after being found unresponsive in the home with a reported history of falls, possibly in the setting of alcohol use. The patient was noted to have a contusion on her right eye and her right frontal scalp, as well as a bleeding scalp laceration in the posterior part of her head. She also had possible hematemesis on arrival to the emergency department as well. The patient was minimally responsive and was intubated for airway protection. She had stat imaging done of her head and C-spine, which did not show any hematoma in the brain or bleeding and no evidence of acute fractures to the facial bones or in her spine. 1. Neurologic: The patient presented with altered mental status and has a history of alcohol abuse and depression. She also reportedly had a seizure en route to the hospital. Her alcohol level on admission was negative and her urine toxicology was negative. Given her history of alcohol abuse and seizures, the patient may have been in alcohol withdrawal leading to her seizures and altered mental status. She also had elevated ammonia level on admission and likely with hepatic encephalopathy also contributing to her altered mental status. Her CT of the head on admission did not show any evidence of epidural bleed or subdural hematoma. She does have superficial laceration, ecchymosis and contusion on her right frontal scalp and posterior scalp. The patient is intubated and sedated. She is on propofol and Versed drip for her alcohol withdrawal. Continue with seizure precautions. Continue with rifaximin for hepatic encephalopathy, but we will continue to hold lactulose given possible gastrointestinal bleed. Continue supplementation with thiamine, folate and multivitamin. The patient had received banana bag yesterday on admission to intensive care unit (ICU). 2. Cardiovascular: The patient was hypertensive and tachycardic in the emergency department, likely in the setting of alcohol withdrawal. She had a femoral triple lumen catheter placed for IV access. Her blood pressure and heart rate has improved. Her lactate was significantly elevated on arrival, likely secondary to her seizure. Her repeat lactate showed significant improvement. We will continue to monitor her blood pressure. The patient had increased troponin, likely in the setting of demand ischemia given her significant hypertension and tachycardia on admission. Her repeat troponin showed that it was trending down. Her CPK was still trending up, likely due to her seizure as well as combative in the emergency department, requiring emergency department staff to physically restrain her at times. We will get an echocardiogram given her troponinemia . 3. Pulmonary: The patient was intubated for airway protection in the setting of acute altered mental status. Her chest x-ray on admission did not show any focal opacities or infiltrates. She did have some coarse increased markings bilaterally, which do not appear changed. Continue her on pressure regulated volume control (PRVC) with 420/14/40/5 and followup daily ABG and chest x-ray while intubated. Continue with head of bed elevation and chlorhexidine mouthwash. Will hold off on her sedation vacation this morning given her acute alcohol withdrawal. We will attempt a sedation hold tomorrow if possible. 4. Gastrointestinal: The patient has a history of alcohol abuse and cirrhosis, which was seen on her abdominal ultrasound done yesterday. There was no significant ascites noted. No gallstone or biliary duct dilation. She did have a possible episode of hematemesis on arrival to the emergency department and her orogastric tube did have some dark maroon colored output. The patient is on Protonix drip and octreotide given a concern for possible esophageal varices. The patient was started on ceftriaxone for SBE prophylaxis; however, her abdominal ultrasound did not show any significant ascites, so can likely discontinue the antibiotics. We will continue to monitor her liver function. Appreciate GI consult for her acute GI bleed. We will keep her nothing by mouth and followup with their recommendations. The patient has an active type and screen. Her hemoglobin did drop down approximately 4 units from admission, some of which is likely dilutional. We will followup a repeat CBC in 8 hours. The patient has two 20-gauge IVs in her antecubital region, as well as a femoral triple lumen catheter for IV access. 5. Renal: The patient was hyponatremic, likely in the setting of alcohol abuse and cirrhosis. Unclear if this is chronic or not for the patient, as we do not have any prior laboratories. Her sodium today did increase potentially too rapidly if she does have a component of chronic hyponatremia. We will discontinue the normal saline fluids and start her on D5W and followup a repeat sodium level in 4 hours. Her creatinine has improved. She likely had some mild acute kidney injury from decreased oral intake. We will continue to monitor her electrolytes and replete as needed. Continue with fingerstick glucose checks and coverage if needed. 6. Deep vein thrombosis (DVT) prophylaxis with sequential compression device (SCD) given acute gastrointestinal bleed. FULL CODE. The patient has a contact number in her chart for a possible daughter. We will attempt to contact and leave a message. There have been no family or friends visiting or calling yet. Total critical care time spent, not including any procedures, approximately 1 hour and 10 minutes. ROSY
[2018-05-16] MEDS ORDERED: D5W 500 ML IV ONE (14:30)
[2018-05-16 18:31] LABS: HEMATOCRIT 30.5 % (36.0-47.0); HEMOGLOBIN 10.6 g/dl (12.0-15.5); MEAN CORPUSCULAR HEMOGLOBIN 34.3 pg (27.0-33.0); MEAN CORPUSCULAR HGB CONC 34.8 g/dl (32.0-36.5); MEAN CORPUSCULAR VOLUME 98.7 fl (80.0-96.0); PLATELET COUNT, AUTOMATED 100 10^3/uL (150-450); RED BLOOD COUNT 3.09 10^6/uL (4.00-5.40); WHITE BLOOD COUNT 8.5 10^3/uL (4.0-10.0)
[2018-05-16 18:48] LABS: BLOOD UREA NITROGEN 5 MG/DL (7-18); CALCIUM LEVEL 7.2 MG/DL (8.5-10.1); CARBON DIOXIDE LEVEL 26 MEQ/L (21-32); CHLORIDE LEVEL 102 MEQ/L (98-107); CREATININE FOR GFR 0.74 MG/DL (0.55-1.30); GLOMERULAR FILTRATION RATE > 60.0 (>51); GLUCOSE, FASTING 141 MG/DL (70-100); POTASSIUM SERUM 3.6 MEQ/L (3.5-5.1); SODIUM LEVEL 135 MEQ/L (136-145)
[2018-05-16] MEDS ORDERED: D5W 1,000 ML IV ONE (19:30)
[2018-05-16] MEDS: OCTREOTIDE ACETATE 1,200 MCG in NS 238.8 ML IV SCH (20:11)
[2018-05-16] MEDS: ALBUTEROL SULFATE 2.5 MG/0.5 ML INH NEB SOLN NEB PRN (20:21)
[2018-05-16] MEDS: DESMOPRESSIN ACETATE 2 MCG in NS 50 ML IV SCH (20:33)
[2018-05-17] VITALS (27 sets, daily range): BP systolic 126–163; BP diastolic 71–98; O2SAT 97–99
[2018-05-17] MEDS: ALBUTEROL SULFATE 2.5 MG/0.5 ML INH NEB SOLN NEB PRN ×3 (00:14→19:05)
[2018-05-17 00:16] LABS: BLOOD UREA NITROGEN 5 MG/DL (7-18); CALCIUM LEVEL 7.1 MG/DL (8.5-10.1); CARBON DIOXIDE LEVEL 25 MEQ/L (21-32); CHLORIDE LEVEL 98 MEQ/L (98-107); CREATININE FOR GFR 0.77 MG/DL (0.55-1.30); GLOMERULAR FILTRATION RATE > 60.0 (>51); GLUCOSE, FASTING 133 MG/DL (70-100); POTASSIUM SERUM 3.4 MEQ/L (3.5-5.1); SODIUM LEVEL 131 MEQ/L (136-145)
[2018-05-17] MEDS ORDERED: KCL 20MEQ IN 100ML SWI (KRUN) 20 MEQ in APPROPRIATE DILUENT 1 EA IV ONE ×2 (00:30)
[2018-05-17] MEDS: PANTOPRAZOLE SODIUM 40 MG in D5W 50 ML IV SCH ×5 (00:46→20:53)
[2018-05-17] MEDS: DESMOPRESSIN ACETATE 2 MCG in NS 50 ML IV SCH (01:45)
[2018-05-17] MEDS: PROPOFOL 1,000 MG in APPROPRIATE DILUENT 1 EA IV SCH ×4 (03:56→21:39)
[2018-05-17 05:15] LABS: HEMOGLOBIN 10.3 g/dl (12.0-15.5); MEAN CORPUSCULAR HGB CONC 34.3 g/dl (32.0-36.5); PLATELET COUNT, AUTOMATED 101 10^3/uL (150-450); RED BLOOD COUNT 3.03 10^6/uL (4.00-5.40); WHITE BLOOD COUNT 9.2 10^3/uL (4.0-10.0)
[2018-05-17 05:59] LABS: ABG BASE EXCESS -0.3 (-2.0-2.0); ABG HCO3 23.3 MEQ/L (22.0-26.0); ABG O2 SATURATION 98.7 % (95.0-99.0); ABG PARTIAL PRESSURE CO2 34.6 mmHg (35.0-45.0); ABG PARTIAL PRESSURE O2 136.1 mmHg (75.0-100.0); ABG STANDARD HCO3 24.3 MEQ/L (22.0-26.0); ABG TOTAL CO2 24.4 MEQ/L (22.0-29.0); ABG pH (ARTERIAL) 7.447 UNITS (7.350-7.450)
[2018-05-17 06:10] LABS: ALBUMIN 2.8 GM/DL (3.2-5.2); ALT/SGPT 53 U/L (12-78); BILIRUBIN,TOTAL 0.5 MG/DL (0.2-1.0); BLOOD UREA NITROGEN 6 MG/DL (7-18); CALCIUM LEVEL 7.1 MG/DL (8.5-10.1); CARBON DIOXIDE LEVEL 25 MEQ/L (21-32); CHLORIDE LEVEL 97 MEQ/L (98-107); CREATININE FOR GFR 0.66 MG/DL (0.55-1.30); GLOMERULAR FILTRATION RATE > 60.0 (>51); GLUCOSE, FASTING 101 MG/DL (70-100); MAGNESIUM LEVEL 1.7 MG/DL (1.8-2.4); PHOSPHORUS LEVEL 2.1 MG/DL (2.5-4.9); POTASSIUM SERUM 3.8 MEQ/L (3.5-5.1); SODIUM LEVEL 130 MEQ/L (136-145)
--- NOTE | 2018-05-17 07:07 | ECHO ---
DATE OF PROCEDURE: 05/16/2018 HEIGHT: 65 inches. WEIGHT: 141 pounds. BODY SURFACE AREA: 1.7 sq m LOCATION: Inpatient ICU room 3205 REFERRING PHYSICIAN: Dr. Heydi Bearden INDICATION: Acute myocardial infarction. MEASUREMENTS: 2D Measurements: RV - 2.7 cm LV - 4.9 cm Septum - 1.1 cm Posterior wall - 1.1 cm Aortic root - 3.6 cm LA - 3.6 cm LVEF - 75% Doppler Measurements: AV - 1.08 meters per second LVOT - 0.9 meters per second LVOT diameter - 2.1 cm MV - E 64, A 74, E/A ratio 0.9 Early mitral deceleration time - 201 milliseconds E prime - 5, A prime - 7.6, E/E prime ratio 12.5 PCWP - 14.5 mmHg PV - 0.8 meters per second Pulmonary artery acceleration time 113 milliseconds PASP -28 mmHg IVC - 1.9 cm COMMENTS: Sinus rhythm/sinus tachycardia without intraventricular conduction disturbance. Somewhat challenging study in light of the patient is intubated on ventilator in the intensive care unit. M-mode and two-dimensional echocardiography was performed with pulsed, continuous wave, color flow, and tissue Doppler studies. Normal left ventricular size, wall thickness and hyperkinetic wall motion. No localized wall motion abnormality to suggest infarction. Normal left atrial size with and Doppler evidence of a degree of impaired LV diastolic function and current estimated mean left atrial pressure upper limits of normal. Normal right heart chamber sizes and motion with currently normal estimated pulmonary atrial pressure. Normal IVC size and collapse against an elevated central venous pressure. Normal appearing and functioning valvular structures. Normal aortic root size. No apparent intracardiac mass or pericardial effusion.
--- NOTE | 2018-05-17 08:46 | REP ---
Chest one-view HISTORY: Intubation Comparison: 05/16/2018 The lungs are clear. The heart is normal in size. The pulmonary vasculature is normal in appearance. An ET tube and NG tube are present. Impression: No acute disease. Electronically Signed by Lorne Mcneil MD 05/17/2018 08:38 A
[2018-05-17] MEDS: THIAMINE HCL 200 MG/2 ML VIAL (J3411) IV SCH (09:04)
[2018-05-17] MEDS: FOLIC ACID 1 MG TAB PO SCH (09:04)
[2018-05-17] MEDS: CHLORHEXIDINE GLUCONATE 0.12 % 15ML UDC (PERIDEX ORAL RINSE) MT SCH ×2 (09:04→20:53)
[2018-05-17] MEDS: MULTIVITAMINS/MINERALS THERAP 1 TAB PO SCH (09:04)
[2018-05-17] MEDS ORDERED: MAG SULF 1GM/100ML (MAG RUN) 1 GM in APPROPRIATE DILUENT 1 EA IV ONE (11:00)
[2018-05-17] MEDS: NEUTRA-PHOS 1.25 GM PACKET PO SCH ×3 (11:27→20:52)
[2018-05-17] MEDS: NYSTATIN 500,000 U/5 ML SUSP UDC SS SCH ×2 (11:27→17:51)
[2018-05-17 11:31] LABS: HEMATOCRIT 29.2 % (36.0-47.0); HEMOGLOBIN 10.2 g/dl (12.0-15.5); MEAN CORPUSCULAR HEMOGLOBIN 34.8 pg (27.0-33.0); MEAN CORPUSCULAR HGB CONC 34.9 g/dl (32.0-36.5); MEAN CORPUSCULAR VOLUME 99.7 fl (80.0-96.0); PLATELET COUNT, AUTOMATED 100 10^3/uL (150-450); RED BLOOD COUNT 2.93 10^6/uL (4.00-5.40); WHITE BLOOD COUNT 8.3 10^3/uL (4.0-10.0)
[2018-05-17 12:05] LABS: BLOOD UREA NITROGEN 6 MG/DL (7-18); CALCIUM LEVEL 7.5 MG/DL (8.5-10.1); CARBON DIOXIDE LEVEL 25 MEQ/L (21-32); CHLORIDE LEVEL 97 MEQ/L (98-107); CREATININE FOR GFR 0.63 MG/DL (0.55-1.30); GLOMERULAR FILTRATION RATE > 60.0 (>51); GLUCOSE, FASTING 115 MG/DL (70-100); POTASSIUM SERUM 3.8 MEQ/L (3.5-5.1); SODIUM LEVEL 129 MEQ/L (136-145)
--- NOTE | 2018-05-17 13:02 | CCN ---
DATE: 05/17/2018 CRITICAL CARE PROGRESS NOTE: The patient was seen and examined this morning during rounds. The patient has remained sedated on propofol and Versed. She did have a sedation vacation this morning and appeared to have some purposeful movements. She did not open her eyes to command. PHYSICAL EXAMINATION: Temperature 98, pulse 93, respirations 17, blood pressure 153/75, oxygen saturation 98% on 35% FiO2. General: The patient is lying in bed intubated and sedated. She has ecchymosis around her right eye and to a lesser degree around her left eye. The right periorbital edema has improved, although she does still have some edema noted. She has edema as well on her right frontal scalp area and some mild bruising noted to the sides of her face. HEENT: Pupils are small but reactive to light bilaterally. The patient has some malodorous odor from her oral cavity. Neck is supple. Trachea is midline. No palpable adenopathy. Cardiovascular: Regular rate and rhythm. Normal S1, S2 with a possible extra heart sound versus a murmur. Lungs: Coarse ventilated breath sounds bilaterally. She has some increased crackles at the left base today. No wheezing or rhonchi. Abdomen is soft, nondistended. Does not have a fluid wave. Extremities: There is no lower extremity edema bilaterally. LABORATORY DATA: WBC 9.2, hemoglobin 10.3, platelets 101. Chemistry: Sodium 130, potassium 3.8, chloride 97, bicarbonate 25, BUN 6, creatinine 0.66, glucose 101, alkaline phosphatase 2.1, magnesium 1.7. ABG: pH 7.47, pCO2 of 34.6, pO2 of 136.1. Chest x-ray this morning showed a small left pleural effusion and left lower lobe atelectasis and a trace right pleural effusion which is new from previous. Orogastric (OG) tube is in a better position after it was withdrawn yesterday by 2 cm. ASSESSMENT AND PLAN: The patient is a 57-year-old female with a history of alcohol abuse, depression, posttraumatic stress disorder (PTSD) who was brought in by Emergency Medical Services (EMS) after being found unresponsive in the home with a reported history of falls possibly in the setting of alcohol use. The patient had a bleeding scalp laceration in the posterior part of her head and significant contusion and ecchymosis in her right eye and right frontal scalp region. She also was noted to have possible hematemesis on arrival to the emergency department (ED) as well. She was intubated for airway protection and she had stat imaging done of her head and cervical (C) spine which did not show any acute bleeding in the brain and no evidence of acute fractures to the facial bones or in her spine. NEUROLOGIC: Patient with altered mental status with a history of alcohol abuse and depression. She also had a seizure on route to the hospital. Her alcohol level was negative on admission and her urine toxicology was negative. The patient may have been in alcohol withdrawal with seizures and presented with seizures and altered mental status given her history of alcohol abuse with the negative level. She also had elevated ammonia and may have a component hepatic encephalopathy as well. Her CT head did not show any evidence of acute intracranial bleed. She does have some superficial scalp contusion and ecchymosis after her fall. The patient is intubated and sedated. She is on propofol and Versed. We will wean down her Versed from 2 mg an hour to 1 mg an hour and continue with propofol and wean down as tolerated for a goal [place] of 3-4. Continue with seizure precautions. Continue with rifaximin for hepatic encephalopathy. Continue supplementation with thiamine, folate and multivitamin We will continue with daily sedation vacation and assessment for her neurologic status. This morning she appeared to have some purposeful movements but was not fully following commands or opening her eyes. CARDIOVASCULAR: The patient was hypertensive and tachycardic in the ED likely in the setting of acute alcohol withdrawal. She was noted to have positive troponins, likely demand ischemia. Her troponins have been trending down. She did have an elevated CPK likely in the setting of seizures as well as she was combative in the ED. We will repeat her CPK today to continue to monitor. The patient also had some lactic acidosis initially likely in the setting of her seizure, which has trended down. She did have an echo done given her demand ischemia, which showed normal LV function but with some evidence of diastolic dysfunction. Right heart chamber sizes and motion appear normal with a normal inferior vena cava (IVC) and does not appear distended. There does not appear to be any significant valvular disease. Patient had femoral line placed on admission. Will DC as she has not required any vasopressor support. PULMONARY: The patient was intubated for airway protection in the setting of her acute altered mental status. Her initial chest x-ray did not show any focal opacities or infiltrates. Today, she was noted to have some increased left pleural effusion and infiltrate in the left base and a trace right pleural effusion. The patient has been afebrile, does not have any leukocytosis currently. She was initially on antibiotics for SBP prophylaxis, which was discontinued, and she did not have any significant ascites on her ultrasound. The patient is currently off of antibiotics and will continue to monitor. If she develops fever, would start her on antibiotics for presumed pneumonia. Continue her with pressure regulated volume control (PRVC) at had 420/14/35 and 5. Continue with daily chest x-rays, ABGs while intubated. Continue with head of bed elevation and chlorhexidine mouthwash. The patient does have malodor from her mouth. Will start nystatin ointment in her mouth in addition to her chlorhexidine mouth care. Continue with daily sedation vacation and assessment for weaning daily. GASTROINTESTINAL (GI): She has a history of alcohol abuse and cirrhosis. Abdominal ultrasound did not show significant ascites but did show evidence of cirrhosis. There is no gallstone or biliary duct dilation. The patient was reported to have hematemesis on arrival at the ED and her OG tube did have some dark maroon colored output. The patient is on Protonix drip and octreotide for possible upper GI bleed. Ceftriaxone was started for SBP prophylaxis, however was discontinued as she did not have any significant ascites on imaging. We will continue to trend her hemoglobin. The patient has two large bore IVs as well as a femoral triple lumen catheter for IV access. RENAL: The patient was hyponatremic on admission likely in setting of alcohol abuse and cirrhosis. Unclear about the chronicity of her hyponatremia. However, her sodium did increase slightly too rapidly yesterday. She was therefore given desmopressin and D5W with improvement in her sodium. We will hold the desmopressin today and the D5W and continue to monitor her sodium every 4-6 hours. She may need additional desmopressin if she starts rapidly correcting her sodium too quickly again. Continue to monitor her electrolytes, will replete her phosphorus and magnesium. Continue with fingerstick glucose checks. Deep venous thrombosis (DVT) prophylaxis with sequential compressive devices (SCDs) and thromboembolic deterrents (TEDs). FULL CODE: Patient's sister was able to be located and contacted. She was updated on her condition. Patient has a daughter who lives in [place] she is estranged from and a son who lives in [place] whom she was also not in contact with. The sister also does not have their information but will attempt to contact other family members for it. She is willing to give consent for procedures if needed. Sister Caroline Stephens [phone] Total critical care time spent not including any procedures approximately 45 minutes. ROSY
[2018-05-17] MEDS: MIDAZOLAM HCL 100 MG in D5W 80 ML IV SCH (13:05)
[2018-05-17] MEDS ORDERED: NS 1,000 ML IV SCH (13:30)
[2018-05-17 18:44] LABS: BLOOD UREA NITROGEN 6 MG/DL (7-18); CALCIUM LEVEL 7.1 MG/DL (8.5-10.1); CARBON DIOXIDE LEVEL 26 MEQ/L (21-32); CHLORIDE LEVEL 98 MEQ/L (98-107); CREATININE FOR GFR 0.57 MG/DL (0.55-1.30); GLOMERULAR FILTRATION RATE > 60.0 (>51); GLUCOSE, FASTING 106 MG/DL (70-100); POTASSIUM SERUM 3.9 MEQ/L (3.5-5.1); SODIUM LEVEL 131 MEQ/L (136-145)
[2018-05-17] MEDS: fentaNYL 100 MCG/2 ML INJECTION (J3010) IV PRN (23:22)
[2018-05-18] VITALS (28 sets, daily range): BP systolic 111–163; BP diastolic 55–89; O2SAT 96–100
[2018-05-18] MEDS: NYSTATIN 500,000 U/5 ML SUSP UDC SS SCH ×4 (01:12→18:22)
[2018-05-18] MEDS: OCTREOTIDE ACETATE 1,200 MCG in NS 238.8 ML IV SCH (01:12)
[2018-05-18] MEDS: PANTOPRAZOLE SODIUM 40 MG in D5W 50 ML IV SCH ×2 (02:19→08:10)
[2018-05-18] MEDS: PROPOFOL 1,000 MG in APPROPRIATE DILUENT 1 EA IV SCH ×6 (02:19→21:52)
[2018-05-18] MEDS: fentaNYL 100 MCG/2 ML INJECTION (J3010) IV PRN ×7 (03:26→23:01)
[2018-05-18 05:36] LABS: ABG BASE EXCESS 1.7 (-2.0-2.0); ABG HCO3 26.1 MEQ/L (22.0-26.0); ABG O2 SATURATION 96.6 % (95.0-99.0); ABG PARTIAL PRESSURE CO2 40.3 mmHg (35.0-45.0); ABG PARTIAL PRESSURE O2 87.7 mmHg (75.0-100.0); ABG STANDARD HCO3 25.9 MEQ/L (22.0-26.0); ABG TOTAL CO2 27.3 MEQ/L (22.0-29.0); ABG pH (ARTERIAL) 7.429 UNITS (7.350-7.450)
[2018-05-18 05:54] LABS: HEMATOCRIT 29.2 % (36.0-47.0); HEMOGLOBIN 10.2 g/dl (12.0-15.5); MEAN CORPUSCULAR HEMOGLOBIN 34.7 pg (27.0-33.0); MEAN CORPUSCULAR HGB CONC 34.9 g/dl (32.0-36.5); MEAN CORPUSCULAR VOLUME 99.3 fl (80.0-96.0); PLATELET COUNT, AUTOMATED 110 10^3/uL (150-450); RED BLOOD COUNT 2.94 10^6/uL (4.00-5.40)
[2018-05-18 06:22] LABS: ALBUMIN 2.8 GM/DL (3.2-5.2); ALT/SGPT 59 U/L (12-78); BILIRUBIN,TOTAL 0.4 MG/DL (0.2-1.0); BLOOD UREA NITROGEN 5 MG/DL (7-18); CALCIUM LEVEL 7.3 MG/DL (8.5-10.1); CARBON DIOXIDE LEVEL 28 MEQ/L (21-32); CHLORIDE LEVEL 102 MEQ/L (98-107); CREATININE FOR GFR 0.62 MG/DL (0.55-1.30); GLOMERULAR FILTRATION RATE > 60.0 (>51); GLUCOSE, FASTING 111 MG/DL (70-100); MAGNESIUM LEVEL 2.2 MG/DL (1.8-2.4); PHOSPHORUS LEVEL 2.7 MG/DL (2.5-4.9); POTASSIUM SERUM 3.9 MEQ/L (3.5-5.1); SODIUM LEVEL 136 MEQ/L (136-145); TOTAL PROTEIN 5.2 GM/DL (6.4-8.2)
--- NOTE | 2018-05-18 08:53 | REP ---
Portable chest, single AP semi upright view, 06:46 a.m.: Comparison is 05/17/2018. Lung page are clear and cardiac size is normal. This is unchanged. There is an endotracheal tube terminating satisfactorily above the kip at the level of the aortic arch, unchanged. There is a nasogastric tube terminating satisfactorily in the abdominal left upper quadrant, unchanged. Impression: There is no interval change. Electronically Signed by Saul Iverson MD 05/18/2018 08:45 A
[2018-05-18] MEDS: NEUTRA-PHOS 1.25 GM PACKET PO SCH ×2 (09:22→20:15)
[2018-05-18] MEDS: CHLORHEXIDINE GLUCONATE 0.12 % 15ML UDC (PERIDEX ORAL RINSE) MT SCH ×2 (09:22→20:15)
[2018-05-18] MEDS: MULTIVITAMINS/MINERALS THERAP 1 TAB PO SCH (09:22)
[2018-05-18] MEDS: FOLIC ACID 1 MG TAB PO SCH (09:22)
[2018-05-18] MEDS: D5W 1,000 ML IV SCH (09:23)
[2018-05-18] MEDS: THIAMINE HCL 200 MG/2 ML VIAL (J3411) IV SCH (09:23)
[2018-05-18] MEDS ORDERED: CALCIUM GLUCONATE 1,000 MG in D5W MINI-BAG PLUS 100 ML IV ONE (10:00)
--- NOTE | 2018-05-18 11:41 | CCN ---
DATE OF SERVICE: 05/18/2018 The patient was seen and examined this morning during rounds. The patient has been weaned off of Versed drip for sedation. Propofol was held this morning for sedation vacation, and the patient was opening her eyes, tracking, and following some commands. She did then become somewhat restless and agitated, and sedation was restarted. The patient has been noted to have increasing thick secretions through her endotracheal (ET) tube. She has had no fevers overnight. PHYSICAL EXAMINATION: Temperature 98.2, pulse 73, respirations 14, blood pressure 138/73, O2 sat 100% on 30% FIO2. General: The patient is intubated and sedated. She has some ecchymosis and swelling in her right periorbital region and some ecchymosis around her left eye with improvement in the edema. She had continues to have some contusion in her right scalp and some mild bruising on the side of her face. HEENT: Pupils are small but reactive bilaterally. The patient has some drooling noted from her mouth and some white discharge in her mouth and tongue and some malodorous odor. Neck is supple. Trachea is midline. There is no palpable adenopathy. Cardiovascular is regular rate and rhythm. Normal S1, S2 with possible extra heart sound versus a faint murmur. Lungs: The patient has some coarse ventilated breath sounds bilaterally and some rhonchi and occasional crackles at the bases. Abdomen is soft, nontender, nondistended. No palpable fluid wave. Orogastric (OG) tube output is now bilious and not [id number] anymore. Extremities: There is no lower extremity edema noted bilaterally. LABORATORIES: WBC 8.0, hemoglobin 10.2, platelets 110. Chemistry: Sodium is 136, potassium 3.9, chloride 102, bicarbonate 28, BUN 5, creatinine 0.62, and glucose is 111. Calcium is 7.3. Albumin is 2.8. ABG: pH of 7.429, pCO2 of 40.3, pO2 of 87.8. Chest x-ray this morning, ET tube in good position. There is a trace effusion on the left and a smaller trace effusion on the right. ASSESSMENT AND PLAN: The patient is a 57-year-old female with history of alcohol abuse, depression, posttraumatic stress disorder (PTSD), who was brought in by emergency medical services (EMS) after being found unresponsive in the home with a reported history of falls, possibly in the setting of alcohol abuse. On arrival to the emergency department (ED), the patient had a bleeding scalp lesion in the posterior part of her head and significant contusion and ecchymosis mostly around her right eye and right frontal scalp region. She was also noted to have hematemesis on arrival to the ED. She was intubated for airway protection, and she had at once (STAT) imaging done of her head and cervical spine, which did not show any acute bleeding in the brain and no evidence of acute fractures to the facial bones or in her spine. Neurologic: Altered mental status with a history of alcohol abuse and depression. The patient had a seizure en route to the hospital. Her alcohol level was negative, and her urine toxicology was negative on admission. The patient likely with the alcohol withdrawal with seizures and altered mental status. The patient also with elevated ammonia and a possible hepatic encephalopathy. Her CT head did not show any evidence acute intracranial bleed. The patient is intubated and sedated. She is off of Versed drip and is on propofol only for sedation with as needed Versed as needed. With a sedation hold this morning, she was opening her eyes and following commands appropriately but then became agitated, and sedation was restarted Continue with propofol with daily sedation vacations and wean down as tolerated. Continue with seizure precautions. Continue with rifaximin for hepatic encephalopathy. Continue supplementation with thiamine, folate, and multivitamin. Cardiovascular: The patient was hypertensive and tachycardic in the ED, likely in the setting of acute alcohol withdrawal. She did have some positive troponins, likely secondary to demand ischemia. Her troponins had trended down, but her repeat creatine phosphokinase (CPK) was elevated. The patient did have an echocardiogram done given her demand ischemia, which showed normal left ventricle (LV) function but with some evidence of diastolic dysfunction. Her right-sided chambers appeared normal, and her inferior vena cava (IVC) did not appear distended. The patient was given normal saline fluid hydration. However, she had rapid correction of her sodium level; and so, normal saline was discontinued. Will need to adjust her fluids today and repeat CPK. Pulmonary: The patient was intubated for airway protection in the setting of her acute altered mental status. Her initial chest x-ray did not show any focal opacities or infiltrates. The patient did receive some antibiotics for possible subacute bacterial endocarditis (SBE) prophylaxis, which is discontinued, and she did not have any ascites on her ultrasound. She is off of antibiotics. She is afebrile. Does not have a leukocytosis. However, she is noted to have increasing thick secretions through her ET tube. Will continue to monitor and hold off on antibiotics at this time. If she has any fever or increasing leukocytosis, will likely need to start antibiotics. Continue with nystatin and aggressive oral care with chlorhexidine mouthwash. Continue with head of bed elevation. Continue with daily chest x-rays and ABGs while intubated. The patient is on pressure-regulated volume control (PRVC) at 420/14/30 and 5. Continue with daily sedation vacation and assessments for weaning daily. Gastrointestinal (GI): The patient has a history of alcohol abuse and cirrhosis. Abdominal ultrasound did not show any significant ascites but did show evidence of cirrhotic liver. There was no gallstone or biliary duct dilation. She did have some hematemesis initially on admission, and her OG tube output was [id number] with some coffee-ground material. She was started on Protonix drip and octreotide, which she has been on for more than 48 hours. Her OG tube output now appears bilious, and there is no further coffee-ground material. Therefore, will discontinue Protonix drip and change her to pantoprazole intravenous (IV) twice a day and discontinue her octreotide drip. Her hemoglobin has remained stable. We will continue to monitor. The patient did have some mild thrombocytopenia, which has improved and is stable. The patient is nothing by mouth today. Will likely start tube feeds at a trophic rate tomorrow. Renal: The patient was hyponatremic on admission, likely in setting of her alcohol abuse and cirrhosis. Given the chronicity of her hyponatremia was unclear, the patient did initially have trend for a too-rapid increase in her sodium. She was, therefore, given desmopressin and D5 with improvement in her sodium. She has now had trending up again of her sodium level, but it has been more than 48 hours. Therefore, will continue monitoring her sodium. She was switched to D5, as there is some concern of developing hypernatremia. However, her CPK was elevated and will need to give her some normal saline. Therefore, we will have the patient on D5 at 50 mL an hour and normal saline at 125 mL an hour. Will likely be able to start her on free-water flushes, which will help with her sodium, as well. Continue to monitor electrolytes and replete as needed. Continue to monitor fingerstick glucose checks. Deep venous thrombosis (DVT) prophylaxis. The patient was on sequential compression devices (SCDs) and thromboembolic deterrents (TEDs). However, it appears her GI bleed is stable. Will start the patient on heparin twice a day and monitor. FULL CODE. The patient has a sister, Caroline Stephens, , who is her contact currently. We are still attempting to get contact information for her children. Total critical care time spent, not including any procedures, approximately 45 minutes. ROSY
[2018-05-18] MEDS: NS 1,000 ML IV SCH ×2 (11:45→19:14)
[2018-05-18] MEDS: HEPARIN SOD (PORCINE) 5000 UNITS/ML VIAL SQ SCH ×2 (11:52→20:15)
[2018-05-18] MEDS: MIDAZOLAM INJ 2 MG/2 ML VIAL (J2250) IV PRN ×4 (13:36→21:19)
[2018-05-18 19:01] LABS: BLOOD UREA NITROGEN 5 MG/DL (7-18); CALCIUM LEVEL 7.6 MG/DL (8.5-10.1); CARBON DIOXIDE LEVEL 28 MEQ/L (21-32); CHLORIDE LEVEL 108 MEQ/L (98-107); CPK CREATINE PHOSPHOKINASE 7156 U/L (26-192); CREATININE FOR GFR 0.57 MG/DL (0.55-1.30); GLOMERULAR FILTRATION RATE > 60.0 (>51); GLUCOSE, FASTING 101 MG/DL (70-100); POTASSIUM SERUM 3.6 MEQ/L (3.5-5.1); SODIUM LEVEL 142 MEQ/L (136-145)
[2018-05-18] MEDS: PANTOPRAZOLE 40MG INJ (PROTONIX) (C9113) IV SCH (20:16)
[2018-05-18] MEDS ORDERED: DESMOPRESSIN ACETATE 2 MCG in NS 50 ML IV SCH (21:00)
[2018-05-19] VITALS (30 sets, daily range): BP systolic 77–150; BP diastolic 49–91
[2018-05-19] MEDS: MIDAZOLAM INJ 2 MG/2 ML VIAL (J2250) IV PRN ×5 (00:12→05:44)
[2018-05-19] MEDS: NYSTATIN 500,000 U/5 ML SUSP UDC SS SCH ×4 (00:12→18:53)
[2018-05-19] MEDS: D5W 1,000 ML IV SCH (00:14)
[2018-05-19 00:20] LABS: BLOOD UREA NITROGEN 5 MG/DL (7-18); CALCIUM LEVEL 7.2 MG/DL (8.5-10.1); CARBON DIOXIDE LEVEL 27 MEQ/L (21-32); CHLORIDE LEVEL 108 MEQ/L (98-107); CPK CREATINE PHOSPHOKINASE 6013 U/L (26-192); CREATININE FOR GFR 0.51 MG/DL (0.55-1.30); GLOMERULAR FILTRATION RATE > 60.0 (>51); GLUCOSE, FASTING 111 MG/DL (70-100); POTASSIUM SERUM 3.4 MEQ/L (3.5-5.1); SODIUM LEVEL 143 MEQ/L (136-145)
[2018-05-19] MEDS: KCL 10MEQ/100ML SWI (KRUN) 10 MEQ in APPROPRIATE DILUENT 1 EA IV SCH ×3 (00:53→03:12)
[2018-05-19] MEDS: NS 1,000 ML IV SCH ×4 (02:08→21:57)
[2018-05-19] MEDS: PROPOFOL 1,000 MG in APPROPRIATE DILUENT 1 EA IV SCH ×2 (02:31→06:42)
[2018-05-19] MEDS: fentaNYL 100 MCG/2 ML INJECTION (J3010) IV PRN (03:13)
[2018-05-19 05:15] LABS: HEMATOCRIT 27.3 % (36.0-47.0); HEMOGLOBIN 9.3 g/dl (12.0-15.5); MEAN CORPUSCULAR HEMOGLOBIN 34.4 pg (27.0-33.0); MEAN CORPUSCULAR HGB CONC 34.1 g/dl (32.0-36.5); MEAN CORPUSCULAR VOLUME 101.1 fl (80.0-96.0); PLATELET COUNT, AUTOMATED 132 10^3/uL (150-450); WHITE BLOOD COUNT 8.3 10^3/uL (4.0-10.0)
[2018-05-19] MEDS ORDERED: dexmedeTOMidine 200 MCG in APPROPRIATE DILUENT 1 EA IV SCH (05:30)
[2018-05-19 05:44] LABS: ALBUMIN 2.5 GM/DL (3.2-5.2); ALT/SGPT 57 U/L (12-78); BILIRUBIN,TOTAL 0.5 MG/DL (0.2-1.0); BLOOD UREA NITROGEN 5 MG/DL (7-18); CALCIUM LEVEL 7.6 MG/DL (8.5-10.1); CARBON DIOXIDE LEVEL 26 MEQ/L (21-32); CHLORIDE LEVEL 106 MEQ/L (98-107); CREATININE FOR GFR 0.55 MG/DL (0.55-1.30); GLOMERULAR FILTRATION RATE > 60.0 (>51); GLUCOSE, FASTING 107 MG/DL (70-100); MAGNESIUM LEVEL 1.8 MG/DL (1.8-2.4); POTASSIUM SERUM 3.8 MEQ/L (3.5-5.1); SODIUM LEVEL 138 MEQ/L (136-145); TOTAL PROTEIN 5.1 GM/DL (6.4-8.2)
[2018-05-19 06:13] LABS: ABG BASE EXCESS -0.1 (-2.0-2.0); ABG HCO3 24.3 MEQ/L (22.0-26.0); ABG O2 SATURATION 98.1 % (95.0-99.0); ABG PARTIAL PRESSURE CO2 38.6 mmHg (35.0-45.0); ABG PARTIAL PRESSURE O2 113.3 mmHg (75.0-100.0); ABG STANDARD HCO3 24.4 MEQ/L (22.0-26.0); ABG TOTAL CO2 25.5 MEQ/L (22.0-29.0); ABG pH (ARTERIAL) 7.417 UNITS (7.350-7.450)
[2018-05-19 06:30] LABS: CPK CREATINE PHOSPHOKINASE 6503 U/L (26-192)
[2018-05-19 07:40] LABS: TRIGLYCERIDES LEVEL 150 MG/DL (<150)
--- NOTE | 2018-05-19 08:11 | REP ---
Portable chest, single AP semi upright view, 06:52 a.m.: Comparison is 05/18/2018. There is a left pleural effusion. The lung page otherwise clear and unchanged. Cardiac size is normal. The alina, mediastinum, skeletal structures are unremarkable. The endotracheal tube terminates satisfactorily above the kip at the level of the aortic arch, unchanged. The nasogastric tube terminates satisfactorily in the abdominal left upper quadrant, unchanged. Impression: Left pleural effusion. ET tube and NG tube remain in satisfactory positions. Electronically Signed by Saul Iverson MD 05/19/2018 08:02 A
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
[2018-05-19] MEDS ORDERED: LACTULOSE 20 GM/30 ML SYRUP UD PO SCH (09:00)
--- NOTE | 2018-05-19 09:01 | REP ---
Portable left ankle two views: There is no fracture or dislocation. Mineralization is normal. The mortise is symmetric. No calcifications or foreign bodies. There is a calcaneal plantar spur. Impression: There is no fracture or dislocation. Half Electronically Signed by Saul Iverson MD 05/19/2018 08:52 A
[2018-05-19] MEDS: NEUTRA-PHOS 1.25 GM PACKET PO SCH ×2 (09:10→21:00)
[2018-05-19] MEDS: THIAMINE HCL 200 MG/2 ML VIAL (J3411) IV SCH (09:11)
[2018-05-19] MEDS: MULTIVITAMINS/MINERALS THERAP 1 TAB PO SCH (09:11)
[2018-05-19] MEDS: PANTOPRAZOLE 40MG INJ (PROTONIX) (C9113) IV SCH (09:11)
[2018-05-19] MEDS: FOLIC ACID 1 MG TAB PO SCH (09:11)
[2018-05-19] MEDS: CHLORHEXIDINE GLUCONATE 0.12 % 15ML UDC (PERIDEX ORAL RINSE) MT SCH ×2 (09:11→21:00)
[2018-05-19] MEDS ORDERED: NS 500 ML IV ONE (10:00)
[2018-05-19] MEDS ORDERED: FUROSEMIDE 20 MG/2 ML VIAL (J1940) IV ONE (10:45)
[2018-05-19 10:55] LABS: NT-PRO BNP 139 PG/ML (<125)
[2018-05-19 13:20] LABS: BLOOD UREA NITROGEN 5 MG/DL (7-18); CALCIUM LEVEL 7.9 MG/DL (8.5-10.1); CARBON DIOXIDE LEVEL 25 MEQ/L (21-32); CHLORIDE LEVEL 105 MEQ/L (98-107); CPK CREATINE PHOSPHOKINASE 8537 U/L (26-192); CREATININE FOR GFR 0.57 MG/DL (0.55-1.30); GLOMERULAR FILTRATION RATE > 60.0 (>51); GLUCOSE, FASTING 98 MG/DL (70-100); POTASSIUM SERUM 3.7 MEQ/L (3.5-5.1); SODIUM LEVEL 140 MEQ/L (136-145)
[2018-05-19] MEDS ORDERED: ONDANSETRON 4MG/2ML VIAL (J2405) IV ONE (15:00)
[2018-05-19] MEDS ORDERED: ONDANSETRON 4MG/2ML VIAL (J2405) IV PRN (15:45)
--- NOTE | 2018-05-19 18:20 | IPN ---
DATE: 05/19/2018 Patient accepted from anesthetic assistant. Currently status post extubation. Comfortable. Mild hoarseness. Denies any chest pain, pressure, or discomfort. Mild cough. Stated last drinking alcohol on Wednesday. Stated that she has injured herself with fall. Patient is a very poor historian. Able to clear secretions. Denies any chest pain. VITAL SIGNS: Temperature 99.2, pulse 84, respirations 20, blood pressure 125/68, pulse oximetry 98% on 40% FiO2. LABORATORY DATA: WBC 8.3, hemoglobin and hematocrit 9.3/27.3, platelets 132. Chemistry: Sodium 140, potassium 3.7, chloride 105, bicarbonate 25, BUN 5, creatinine 0.57. PHYSICAL EXAMINATION: GENERAL: Patient frail. Speaks in short phrases. Comfortable on Venturi mask with hoarseness. HEENT: Pupils are reactive. NECK: Supple. CARDIAC: Regular, S1, S2. PULMONARY: Coarse breath sounds bilateral. Some upper airway sounds. ABDOMEN: Soft and nontender. Positive bowel sounds. EXTREMITIES: Trace edema, bilateral lower extremities. ASSESSMENT AND PLAN: This is a 57-year-old female patient with underlying medical history of alcohol abuse, depression, posttraumatic stress disorder who was brought in by emergency medical services (EMS) after being found unresponsive at home with reported history of fall in the setting of possible alcohol abuse. With also underlying medical history of inpatient mental health admission with overdose, depression. Here patient also had an episode of seizure. Noted also to have a head contusion, ecchymosis on the forehead of patient's face with periorbital swelling around patient's right eye and right frontal scalp. Posterior scalp lesion with no significant bleeding but was stapled. 1. Altered mental status with alcohol abuse and also likely encephalopathy due to either a seizure or alcohol withdrawal. CT scan appreciated. Status post extubation. Patient currently returning to baseline. Supportive care. Will monitor closely. 2. Seizure with tongue laceration, likely withdrawal. Will monitor. Seizure precautions. No history of seizure reported. 3. Head trauma due to fall versus seizure. CT appreciated. Patient will need staple removal in the next 7 days. Maxillofacial also appreciated with no fracture. Will monitor closely. 4. Lactic acidosis, resolved, secondary to seizure. 5. Mild troponin elevation, likely demand ischemia due to seizure and possible component of hypoxia. 6. Rhabdomyolysis, likely secondary to seizure and injuries and fall. Intravenous (IV) fluids have been ordered. Lasix if worsening fluid overload. 7. Coffee-ground emesis. Currently with stable hemoglobin and hematocrit. Will monitor clinically. Patient has dark, maroon-colored coffee ground material from orogastric (OG) tube. Transfuse as needed. Monitor hemoglobin and hematocrit. Manifestation is not consistent with esophageal varices but will need endoscopy in the near future. Was initially treated with octreotide drip and Protonix drip. Currently on Protonix twice a day. Monitor hemoglobin and hematocrit. 8. History of cirrhosis. Was treated with octreotide. Patient did not receive a scope. Clinical manifestation does not suggest esophageal varices but will eventually need a scope once patient is clinically stabilized. 9. Cirrhosis. Continue rifaximin. Likely secondary to alcohol abuse. Continue proton pump inhibitor (PPI), rifaximine, thiamine, folate, multivitamin. 10. Mild fluid overload. Lasix has been given. Strict intake and output. Palomino catheter in place. 11. Hyponatremia, resolved. 12. Depression. Will eventually need psychiatric concentration. Patient currently is a poor historian. Will need to assess whether patient is suicidal or not given history of overdose. 13. Deep vein thrombosis (DVT) prophylaxis. Thromboembolic deterrent stockings (TEDs) and sequentials. Will consider starting heparin subcutaneous. 14. Thrombocytopenia in the setting of history of cirrhosis. Will monitor. DISPOSITION: Pending clinical improvement. settlement worker on consult. Eventually will need psychiatric consultation.
[2018-05-19] MEDS: PANTOPRAZOLE 40MG TAB (PROTONIX) PO SCH (21:00)
[2018-05-19] MEDS ORDERED: ACETAMINOPHEN TAB 650MG DOSE (2X325MG) PO ONE (21:00)
[2018-05-19] MEDS ORDERED: PERCOCET 5MG/325MG TAB PO ONE (21:00)
[2018-05-19 21:56] LABS: MB/CK RELATIVE INDEX 0.02 (< OR =4); TROPONIN I 0.08 NG/ML (< 0.10)
[2018-05-20] VITALS (9 sets, daily range): BP systolic 132–193; BP diastolic 60–91
[2018-05-20] MEDS: NS 1,000 ML IV SCH (00:41)
[2018-05-20] MEDS ORDERED: PERCOCET 5MG/325MG TAB PO PRN (02:15)
[2018-05-20] MEDS ORDERED: ACETAMINOPHEN TAB 650MG DOSE (2X325MG) PO PRN (02:15)
[2018-05-20 04:30] LABS: HEMOGLOBIN 9.3 g/dl (12.0-15.5); MEAN CORPUSCULAR HEMOGLOBIN 34.8 pg (27.0-33.0); MEAN CORPUSCULAR HGB CONC 34.4 g/dl (32.0-36.5); MEAN CORPUSCULAR VOLUME 101.1 fl (80.0-96.0); PLATELET COUNT, AUTOMATED 184 10^3/uL (150-450); RED BLOOD COUNT 2.67 10^6/uL (4.00-5.40); WHITE BLOOD COUNT 10.8 10^3/uL (4.0-10.0)
[2018-05-20 05:00] LABS: ALBUMIN 2.6 GM/DL (3.2-5.2); ALT/SGPT 90 U/L (12-78); BILIRUBIN,TOTAL 0.6 MG/DL (0.2-1.0); BLOOD UREA NITROGEN 2 MG/DL (7-18); CALCIUM LEVEL 7.6 MG/DL (8.5-10.1); CARBON DIOXIDE LEVEL 25 MEQ/L (21-32); CHLORIDE LEVEL 116 MEQ/L (98-107); CREATININE FOR GFR 0.54 MG/DL (0.55-1.30); GLOMERULAR FILTRATION RATE > 60.0 (>51); GLUCOSE, FASTING 96 MG/DL (70-100); MAGNESIUM LEVEL 1.7 MG/DL (1.8-2.4); PHOSPHORUS LEVEL 2.2 MG/DL (2.5-4.9); POTASSIUM SERUM 3.2 MEQ/L (3.5-5.1); SODIUM LEVEL 147 MEQ/L (136-145); TOTAL PROTEIN 5.4 GM/DL (6.4-8.2)
[2018-05-20] MEDS ORDERED: MAG SULF 1GM/100ML (MAG RUN) 1 GM in APPROPRIATE DILUENT 1 EA IV ONE ×2 (05:30→07:45)
[2018-05-20] MEDS ORDERED: POTASSIUM CHLORIDE 10 MEQ SR TABLET PO ONE ×3 (05:30→21:00)
[2018-05-20] MEDS ORDERED: NS 0.45% 1,000 ML IV SCH (05:30)
[2018-05-20 05:41] LABS: ABG BASE EXCESS -0.2 (-2.0-2.0); ABG HCO3 23.8 MEQ/L (22.0-26.0); ABG O2 SATURATION 95.8 % (95.0-99.0); ABG PARTIAL PRESSURE CO2 36.2 mmHg (35.0-45.0); ABG PARTIAL PRESSURE O2 85.4 mmHg (75.0-100.0); ABG STANDARD HCO3 24.3 MEQ/L (22.0-26.0); ABG TOTAL CO2 24.9 MEQ/L (22.0-29.0); ABG pH (ARTERIAL) 7.435 UNITS (7.350-7.450)
[2018-05-20] MEDS: NYSTATIN 500,000 U/5 ML SUSP UDC SS SCH ×4 (05:59→17:19)
[2018-05-20] MEDS: PANTOPRAZOLE 40MG TAB (PROTONIX) PO SCH ×2 (08:32→20:40)
[2018-05-20] MEDS: NEUTRA-PHOS 1.25 GM PACKET PO SCH ×2 (08:32→20:40)
[2018-05-20] MEDS: MULTIVITAMINS/MINERALS THERAP 1 TAB PO SCH (08:33)
[2018-05-20] MEDS: FOLIC ACID 1 MG TAB PO SCH (08:33)
[2018-05-20] MEDS: traMADol 50 MG TAB PO PRN ×2 (08:34→20:40)
[2018-05-20] MEDS: CHLORHEXIDINE GLUCONATE 0.12 % 15ML UDC (PERIDEX ORAL RINSE) MT SCH ×2 (08:34→20:37)
--- NOTE | 2018-05-20 08:47 | REP ---
AP PORTABLE CHEST: 05/20/2018. Comparison: 05/19/2018, 05/18/2018. Clinical history: Extubated. Findings: The endotracheal tube and nasogastric tubes are removed. Patchy atelectasis or infiltrate in the left base noted. No gross effusion. Right lung clear. Cardiomediastinal silhouette unchanged. There is mild venous hypertension without kristin edema. The aorta is mildly tortuous but unchanged. Midline airway. Impression: 1. Status post extubation and removal of the nasogastric tube as well. 2. Lungs are better inflated. Some minor basilar patchy atelectasis or infiltrate on the left with no visible effusion. Electronically Signed by Luis Knowles MD 05/20/2018 06:22 P
[2018-05-20] MEDS ORDERED: THIAMINE 100 MG TAB PO SCH (09:00)
[2018-05-20 10:04] LABS: CPK CREATINE PHOSPHOKINASE 10477 U/L (26-192)
[2018-05-20] MEDS: POTASSIUM CHLORIDE INJ 20 MEQ in LR 1,000 ML IV SCH ×2 (10:13→15:42)
[2018-05-20] MEDS: OXAZEPAM 10 MG CAP PO PRN ×2 (12:37→18:04)
[2018-05-20 15:23] LABS: BLOOD UREA NITROGEN 2 MG/DL (7-18); CALCIUM LEVEL 8.3 MG/DL (8.5-10.1); CARBON DIOXIDE LEVEL 30 MEQ/L (21-32); CHLORIDE LEVEL 107 MEQ/L (98-107); CREATININE FOR GFR 0.52 MG/DL (0.55-1.30); GLOMERULAR FILTRATION RATE > 60.0 (>51); GLUCOSE, FASTING 102 MG/DL (70-100); POTASSIUM SERUM 3.1 MEQ/L (3.5-5.1); SODIUM LEVEL 141 MEQ/L (136-145)
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
--- NOTE | 2018-05-20 19:59 | IPNPDOC ---
Text Note Date of Service The patient was seen on 05/20/18. NOTE Much improved. wanted gutierrez out. Denied chest pain. Denied SOB. hoarseness resolved. PHYSICAL EXAMINATION: GENERAL: Patient frail. Speaks in short phrases. Comfortable on Venturi mask with hoarseness. HEENT: Pupils are reactive. NECK: Supple. CARDIAC: Regular, S1, S2. PULMONARY: Coarse breath sounds bilateral. Some upper airway sounds. ABDOMEN: Soft and nontender. Positive bowel sounds. EXTREMITIES: Trace edema, bilateral lower extremities. ASSESSMENT AND PLAN: This is a 57-year-old female patient with underlying medical history of alcohol abuse, depression, posttraumatic stress disorder who was brought in by emergency medical services (EMS) after being found unresponsive at home with reported history of fall in the setting of possible alcohol abuse. With also underlying medical history of inpatient mental health admission with overdose, depression. Here patient also had an episode of seizure. Noted also to have a head contusion, ecchymosis on the forehead of patient's face with periorbital swelling around patient's right eye and right frontal scalp. Posterior scalp lesion with no significant bleeding but was stapled. 1. Altered mental status with alcohol abuse and also likely encephalopathy due to either a seizure or alcohol withdrawal. CT scan appreciated. Status post extubation. Patient currently returning to baseline. Supportive care. Will monitor closely. monitor for withdrawal. serax as needed 2. Seizure with tongue laceration, likely withdrawal. Will monitor. Seizure precautions. No history of seizure reported. 3. Head trauma due to fall versus seizure. CT appreciated. Patient will need staple removal in the next 7 days. Maxillofacial also appreciated with no fracture. Will monitor closely. 4. Lactic acidosis, resolved, secondary to seizure. 5. Mild troponin elevation, likely demand ischemia due to seizure and possible component of hypoxia. 6. Rhabdomyolysis, likely secondary to seizure and injuries and fall. Intravenous (IV) fluids have been ordered. Lasix if worsening fluid overload. 7. Coffee-ground emesis. Currently with stable hemoglobin and hematocrit. Will monitor clinically. Patient has dark, maroon-colored coffee ground material from orogastric (OG) tube. Transfuse as needed. Monitor hemoglobin and hematocrit. Manifestation is not consistent with esophageal varices but will need endoscopy in the near future. Was initially treated with octreotide drip and Protonix drip. Currently on Protonix twice a day. Monitor hemoglobin and hematocrit. refused EGD stating do not want to be experimented. Agreed for outpatient f/u, risk and benefit explained 8. History of cirrhosis. Was treated with octreotide. Patient did not receive a scope. Clinical manifestation does not suggest esophageal varices but will eventually need a scope once patient is clinically stabilized. 9. Cirrhosis. Continue rifaximin. Likely secondary to alcohol abuse. Continue proton pump inhibitor (PPI), rifaximine, thiamine, folate, multivitamin. 10. Mild fluid overload. Lasix has been given. Strict intake and output. Gutierrez catheter in place. 11. Hyponatremia, resolved. 12. Depression. Will eventually need psychiatric concentration. Patient currently is a poor historian. psych consult appreciated 13. Deep vein thrombosis (DVT) prophylaxis. Thromboembolic deterrent stockings (TEDs) and sequentials. Will consider starting heparin subcutaneous. 14. Thrombocytopenia in the setting of history of cirrhosis. Will monitor. DISPOSITION: Pending clinical improvement. lay out worker on consult. VS,Zachary, I+O VS, Galae, I+O Laboratory Tests 05/20/18 04:03 Red Blood Count 2.67 L, Mean Corpuscular Volume 101.1 H, Mean Corpuscular Hemoglobin 34.8 H, Mean Corpuscular Hemoglobin Concent 34.4, Red Cell Distribution Width 12.3, Calcium Level 7.6 L, Phosphorus Level 2.2 L, Aspartate Amino Transf (AST/SGOT) 240 H, Alanine Aminotransferase (ALT/SGPT) 90 H, Total Creatine Kinase 43875 H, Alkaline Phosphatase 98, Total Bilirubin 0.6, Total Protein 5.4 L, Albumin 2.6 L 05/20/18 13:58 Calcium Level 8.3 L Vital Signs Date Time Temp Pulse Resp B/P (MAP) Pulse Ox O2 Delivery O2 Flow Rate FiO2 05/20/18 18:00 92 16 167/74 (105) 96 05/20/18 16:00 99.2 05/19/18 18:00 2.0 05/19/18 16:00 05/18/18 21:52 Ventilator I&O- Last 24 Hours up to 6 AM 05/20/18 06:00 Intake Total 7233.7 ml Output Total 7285 ml Balance -51.3 ml MADAN NAGY MD May 20, 2018 19:59
[2018-05-20] MEDS ORDERED: POTASSIUM CHLORIDE INJ 40 MEQ in LR 1,000 ML IV SCH (21:00)
--- NOTE | 2018-05-20 22:00 | IPNPDOC ---
Text Note Date of Service The patient was seen on 05/20/18. NOTE CALLED BY NURSE AT 21:30. PATIENT WAS ADMITTED FOR ALTERED MENTAL STATUS, ? S EIZURE, GI BLEED, ETOH ABUSE, HEPATIC ENCEPHALOPATHY, RHABDOMYOLYSIS. PT IS MADE AWARE OF RISK OF SIGNING AGAINST MEDICAL ADVICE. CONSULTED WITH PSYCHIATRIST WHO DEEMED PATIENT NON SUICIDAL AND RECOMMENDED D/C OF 1:1. PT IS ALERT AND ORIENTED x 3, SHE UNDERSTAND THE RISK OF SIGNING OUT AGAINST MEDICAL ADVICE INCLUDING BLEEDING, SEIZURE, CARDIAC ARRHYTHMIA AND . PATIENT ENCOURAGED TO FOLLOW UP WITH PRIMARY CARE DOCTOR. PATIENT VERBALIZES UNDERSTANDING AND OPTS TO SIGN AMA. VS,Fishbone, I+O VS, Fishbone, I+O Laboratory Tests 05/20/18 04:03 Red Blood Count 2.67 L, Mean Corpuscular Volume 101.1 H, Mean Corpuscular Hemoglobin 34.8 H, Mean Corpuscular Hemoglobin Concent 34.4, Red Cell Distribution Width 12.3, Calcium Level 7.6 L, Phosphorus Level 2.2 L, Aspartate Amino Transf (AST/SGOT) 240 H, Alanine Aminotransferase (ALT/SGPT) 90 H, Total Creatine Kinase 32584 H, Alkaline Phosphatase 98, Total Bilirubin 0.6, Total Protein 5.4 L, Albumin 2.6 L 05/20/18 13:58 Calcium Level 8.3 L Vital Signs Date Time Temp Pulse Resp B/P (MAP) Pulse Ox O2 Delivery O2 Flow Rate FiO2 05/20/18 21:10 18 05/20/18 18:00 92 167/74 (105) 96 05/20/18 16:00 99.2 05/19/18 18:00 2.0 05/19/18 16:00 05/18/18 21:52 Ventilator I&O- Last 24 Hours up to 6 AM 05/20/18 06:00 Intake Total 7233.7 ml Output Total 7285 ml Balance -51.3 ml WEDNESDAY,AZ CABRALES May 20, 2018 22:00
--- NOTE | 2018-05-21 18:24 | DSES ---
DATE OF ADMISSION: 05/15/2018 DATE OF DISCHARGE: 05/20/2018 The patient left against medical advice. PRIMARY CARE PROVIDER: Marianne Christianson PULMONARY CRITICAL CARE ATTENDING: Dr. Heydi Bearden PSYCHIATRIST: Dr. De Anda FINAL DIAGNOSES: 1. Altered mental status. 2. Seizure. 3. Alcohol abuse. 4. Encephalopathy. 5. Head trauma. 6. Lactic acidosis. 7. Mild troponin elevation. 8. Rhabdomyolysis. 9. Coffee ground emesis. 10. History of cirrhosis. 11. Fluid overload. 12. Hyponatremia. 13. Depression. HISTORY OF PRESENT ILLNESS: This is a 57-year-old female patient with underlying medical history of depression, posttraumatic stress disorder (PTSD), alcohol abuse with cirrhosis. The patient was brought to the emergency room unresponsive, intubated and unable to provide a history on 05/15/2018 and admitted by blending machine operator. Emergency medical services (EMS) reported patient had fallen the day before admission with bruising to the patient's eyes and patient's face as well. She sustained another fall on the day of admission, which was unwitnessed and EMS were called by concerned neighbor who had seen her yesterday and had gone back to check on her today. As per EMS, the patient also had been drinking alcohol leading up to the fall. The patient was unresponsive on their arrival and was noted to have a seizure en route to the emergency department. Upon arrival to the emergency department, the patient was mumbling but not verbalizing clearly and was not able to follow commands appropriately. The patient also appeared to have possible hematemesis, as well as blood from the scalp laceration. The patient was intubated for airway protection and was given fluids. Subsequently, orogastric tube was placed suctioning dark red bloody output. The patient was subsequently admitted. X-ray of the cervical spine, sacrum and coccygeal, chest x-ray, hip x-ray, CT of the maxillofacial and head and cervical spine were done. The patient's scalp laceration was stapled. The patient was admitted to the intensive care unit (ICU). She was placed on rifaximin, IV fluids, thiamine, folate and multivitamin. Proton pump inhibitor and octreotide were provided. The patient's hemoglobin and hematocrit remained relatively stable. The patient did not require any transfusions. Subsequently, the patient was weaned off of the ventilator and extubated. She was transferred to the hospitalist service for further care. The patient was placed on one to one. The patient stated that she did not remember what happened, she stated her last drink was last week on Wednesday. She returned back to baseline. Denies any suicidality or homicidality. Denies any overdose. The patient lives at home alone. Psychiatry was consulted. The patient was also treated for rhabdomyolysis, as well as while intubated she was treated for hyponatremia by the blending machine operator. It was believed that the patient had lactic acidosis and troponin elevation due to seizure event and also had rhabdomyolysis due to fall and possible seizure. Unfortunately, overnight, on the night of 05/20/2018, after evaluation by psychiatrist, the patient demanded to be discharged from the hospital against medical advice. The nighttime provider, Wednesday, discussed the case with Dr. De Anda, who stated that the patient had capacity to leave against medical advice. Subsequently, risks and benefits were explained, including risk of and injury. The patient still stated that she wanted to leave. Hence, the patient left the hospital against medical advice. Because the patient left at night, no medication or followup appointment were able to be set up. Risks and benefits have been explained. Case discussed with Dr. De Anda.
== END 2018-05-20 22:01 | disposition left against medical advice (07) | DRG 279 ==
LOC: M ED 15:57 → EDBD 15:57 → M ED INP 18:08 → M ICU 19:52
PROVIDERS: ADMIT Internal Medicine Pulmonary Disease; ATTEND Hospitalist
PROC: 06HN33Z Insertion of Infusion Device into Left Femoral Vein, Percutaneous Approach (ICD-10-PCS; principal; 2018-05-15)
PROC: 0BH17EZ Insertion of Endotracheal Airway into Trachea, Via Natural or Artificial Opening (ICD-10-PCS; 2018-05-15)
PROC: 5A1945Z Respiratory Ventilation, 24-96 Consecutive Hours (ICD-10-PCS; 2018-05-15)
DX: K72.90 Hepatic failure, unspecified without coma (principal); K92.0 Hematemesis; E87.2 Acidosis; M62.82 Rhabdomyolysis; D69.59 Other secondary thrombocytopenia; F32.9 Major depressive disorder, single episode, unspecified; E87.1 Hypo-osmolality and hyponatremia; E87.70 Fluid overload, unspecified; K70.30 Alcoholic cirrhosis of liver without ascites; F43.10 Post-traumatic stress disorder, unspecified; F10.239 Alcohol dependence with withdrawal, unspecified; S00.03XA Contusion of scalp, initial encounter; Z79.899 Other long term (current) drug therapy; W19.XXXA Unspecified fall, initial encounter; Y92.009 Unspecified place in unspecified non-institutional (private) residence as the place of occurrence of the external cause

== ENCOUNTER → 2018-10-25 | Outpatient (REF) | payer MEDICAID, OTHER ==
[2018-10-25 21:10] LABS: CHLAMYDIA DNA AMPLIFICATION NEGATIVE (NEGATIVE); GC DNA AMPLIFICATION NEGATIVE (NEGATIVE)
== END ==
LOC: M LAB REF 17:34
PROVIDERS: ATTEND Physician Assistant Medical
DX: Z11.3 Encounter for screening for infections with a predominantly sexual mode of transmission (principal)

== ENCOUNTER 2018-12-22 04:43 | Emergency (ER) | payer MEDICAID ==
[~2018-12-22] VITALS: Ht 162.6 cm; Wt 67.3 kg
[2018-12-22] MEDS ORDERED: WELLTAB40 PO (04:50)
[2018-12-22] MEDS ORDERED: PREM0.3T2 PO (04:50)
[2018-12-22 07:44] LABS: BASO % 0.2 % (0.0-1.0); EOS # 0.1 10^3/uL (0.0-0.5); EOS % 0.6 % (0.0-3.0); HEMATOCRIT 43.6 % (36.0-47.0); HEMOGLOBIN 14.9 g/dl (12.0-15.5); LYMPH # 1.9 10^3/uL (1.5-5.0); LYMPH % 16.5 % (24.0-44.0); MEAN CORPUSCULAR HEMOGLOBIN 35.3 pg (27.0-33.0); MEAN CORPUSCULAR HGB CONC 34.2 g/dl (32.0-36.5); MEAN CORPUSCULAR VOLUME 103.3 fl (80.0-96.0); MONO # 0.9 10^3/uL (0.0-0.8); NEUTROPHILS # 8.7 10^3/uL (1.5-8.5); PLATELET COUNT, AUTOMATED 318 10^3/uL (150-450); RED BLOOD COUNT 4.22 10^6/uL (4.00-5.40); WHITE BLOOD COUNT 11.8 10^3/uL (4.0-10.0)
[2018-12-22 07:59] LABS: INR 1.05; PROTHROMBIN TIME 13.4 SECONDS (11.8-14.0)
[2018-12-22 08:00] LABS: PARTIAL THROMBOPLASTIN TIME 31.1 SECONDS (25.0-38.4)
[2018-12-22 08:16] LABS: BLOOD UREA NITROGEN 13 MG/DL (7-18); CALCIUM LEVEL 9.1 MG/DL (8.8-10.2); CARBON DIOXIDE LEVEL 27 MEQ/L (21-32); CHLORIDE LEVEL 107 MEQ/L (98-107); CK-MB VALUE MASS < 1.0 NG/ML (<3.6); CPK CREATINE PHOSPHOKINASE 87 U/L (26-192); CREATININE FOR GFR 0.86 MG/DL (0.55-1.30); GLOMERULAR FILTRATION RATE > 60.0 (>45); GLUCOSE, FASTING 87 MG/DL (70-100); MB/CK RELATIVE INDEX 1.15 (< OR =4); POTASSIUM SERUM 4.3 MEQ/L (3.5-5.1); SODIUM LEVEL 139 MEQ/L (136-145); TROPONIN I < 0.02 NG/ML (< 0.10)
--- NOTE | 2018-12-22 08:32 | REP ---
Portable chest x-ray: Single view. History: Cough. Comparison chest x-ray: May 20. Findings: The lungs are well inflated and clear. No infiltrate is seen. The radiograph is exposed at a somewhat lordotic angle. Cardiomediastinal silhouette is unremarkable. Pulmonary vasculature is not increased. Impression: No acute disease. Electronically Signed by Aj Ramos MD 12/22/2018 08:23 A
[2018-12-22] MEDS ORDERED: ISOVUE-370 76% 100ML VIAL (Q9967) As Ordered ONE (09:26)
[2018-12-22 09:45] VITALS: BP 149/78
[2018-12-22] MEDS ORDERED: MOXI400T11 PO (09:58)
[2018-12-22] MEDS ORDERED: MOXIFLOXACIN 400 MG TAB PO ONE (10:00)
--- NOTE | 2018-12-22 10:09 | REP ---
CT pulmonary angiogram: With IV contrast. History: Pleuritic pain, cough and shortness of breath. Comparison studies: Comparison chest x-ray is from earlier on this date. Contrast dose: 75 mL of Isovue [address] technique: Helical scanning is acquired and overlapping 1.5 mm and contiguous 3 mm axial images are reformatted. In addition, maximum intensity projection and multiplanar re-formation images are generated in sagittal and coronal imaging projections. CT pulmonary angiographic findings: Preliminary [employer] radiograph is unremarkable. There is no evidence of infiltrate or pleural effusion. There is good opacification of the pulmonary arterial tree. There is no CT evidence of pulmonary embolus. Thoracic aorta enhances homogeneously. There is no evidence of aneurysm or dissection. The ascending aorta measures 3.9 cm in AP dimension at the level of the right main pulmonary artery. No adrenal lesion is seen. The visualized upper abdominal structures are unremarkable. There are scattered small mediastinal lymph nodes in the AP window region and precarinal area. The largest node measures 8 mm in short axis dimension in the precarinal region. 6 mm in the AP window. These are not enlarged by CT criteria. Impression: Mild ectasia of the ascending aorta, 3.9 cm. No aneurysm or dissection. No CT evidence of pulmonary embolus. Scattered normal-sized mediastinal lymph nodes. No active disease. Electronically Signed by Aj Ramos MD 12/22/2018 06:20 P
--- NOTE | 2018-12-22 15:36 | ECGEPIP ---
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
--- NOTE | 2018-12-23 20:44 | ED PDOC ---
Post-Departure Follow-Up eloy echeverria faxed formal report of cta chest for fu Zeke Weems MD Dec 23, 2018 20:44
== END 2018-12-22 10:19 | disposition home or self-care (01) ==
LOC: M ED 04:43
DX: R07.9 Chest pain, unspecified (principal); J20.9 Acute bronchitis, unspecified; J02.9 Acute pharyngitis, unspecified; Z20.89 Contact with and (suspected) exposure to other communicable diseases; F32.9 Major depressive disorder, single episode, unspecified; F43.10 Post-traumatic stress disorder, unspecified; F10.10 Alcohol abuse, uncomplicated; Z86.19 Personal history of other infectious and parasitic diseases; Z79.890 Hormone replacement therapy; Z79.899 Other long term (current) drug therapy
CPT/HCPCS: 71045; 71275; 80048; 82550; 82553; 85025; 85610; 85730; 87486; 87581; 87633; 87798; 87880; 93005; 93041; 94760; 99285; Q9967

== ENCOUNTER 2019-10-26 13:26 | Emergency (ER) | payer MEDICAID, OTHER ==
[~2019-10-26] VITALS: Ht 162.6 cm; Wt 70.6 kg
[~2019-10-26 13:26] MED LIST changes: +MOXI400T11 PO; +PREM0.3T2 PO; -VALA1TAB2 PO; +VALA1TAB5 PO; +WELLTAB40 PO
[2019-10-26] MEDS ORDERED: ONDANSETRON 4MG/2ML VIAL IV ONE (16:00)
[2019-10-26] MEDS ORDERED: MORPHINE 2 MG/ML 1ML VIAL (J2270) IV ONE (16:00)
[2019-10-26 16:19] LABS: BASO % 0.3 % (0.0-1.0); EOS # 0.1 10^3/uL (0.0-0.5); HEMATOCRIT 41.7 % (36.0-47.0); HEMOGLOBIN 14.5 g/dl (12.0-15.5); LYMPH # 2.8 10^3/uL (1.5-5.0); MEAN CORPUSCULAR HEMOGLOBIN 34.2 pg (27.0-33.0); MEAN CORPUSCULAR HGB CONC 34.8 g/dl (32.0-36.5); MEAN CORPUSCULAR VOLUME 98.3 fl (80.0-96.0); MONO # 0.7 10^3/uL (0.0-0.8); MONO % 9.2 % (0.0-5.0); NEUTROPHILS # 4.1 10^3/uL (1.5-8.5); NEUTROPHILS % 53.1 % (36.0-66.0); PLATELET COUNT, AUTOMATED 169 10^3/uL (150-450); RED BLOOD COUNT 4.24 10^6/uL (4.00-5.40); WHITE BLOOD COUNT 7.7 10^3/uL (4.0-10.0)
[2019-10-26 16:53] VITALS: BP 147/78
[2019-10-26 17:59] LABS: ALBUMIN 3.8 GM/DL (3.2-5.2); ALT/SGPT 34 U/L (12-78); BILIRUBIN,DIRECT 0.2 MG/DL (0.0-0.2); BILIRUBIN,TOTAL 0.5 MG/DL (0.2-1.0); CK-MB VALUE MASS 1.9 NG/ML (<3.6); CPK CREATINE PHOSPHOKINASE 156 U/L (26-192); ETHYL ALCOHOL (ETHANOL) 0.159 % (0.000-0.010); MB/CK RELATIVE INDEX 1.22 (< OR =4); TOTAL PROTEIN 6.9 GM/DL (6.4-8.2); TROPONIN I < 0.02 NG/ML (< 0.10)
--- NOTE | 2019-11-20 15:05 | ECGEPIP ---
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
== END 2019-10-26 17:01 | disposition short-term general hospital (02) ==
LOC: M ED 13:26
DX: S06.5X0A Traumatic subdural hemorrhage without loss of consciousness, initial encounter (principal); S00.80XA Unspecified superficial injury of other part of head, initial encounter; W01.0XXA Fall on same level from slipping, tripping and stumbling without subsequent striking against object, initial encounter; Y92.018 Other place in single-family (private) house as the place of occurrence of the external cause; E11.9 Type 2 diabetes mellitus without complications; B02.9 Zoster without complications; F17.210 Nicotine dependence, cigarettes, uncomplicated
CPT/HCPCS: 70450; 70486; 71101; 72125; 73080; 80047; 80076; 82550; 82553; 85025; 86850; 86900; 86901; 93005; 93041; 94760; 96374; 96375; 99291; G0480; J2270; J2405

== ENCOUNTER → 2019-12-29 | Outpatient (CLI) | payer MEDICAID ==
[2019-12-29 07:09] LABS: BASO % 0.5 % (0.0-1.0); EOS # 0.2 10^3/uL (0.0-0.5); EOS % 2.2 % (0.0-3.0); HEMATOCRIT 44.6 % (36.0-47.0); HEMOGLOBIN 14.8 g/dl (12.0-15.5); LYMPH # 2.6 10^3/uL (1.5-5.0); LYMPH % 31.5 % (24.0-44.0); MEAN CORPUSCULAR HEMOGLOBIN 33.3 pg (27.0-33.0); MEAN CORPUSCULAR HGB CONC 33.2 g/dl (32.0-36.5); MEAN CORPUSCULAR VOLUME 100.2 fl (80.0-96.0); MONO # 0.8 10^3/uL (0.0-0.8); MONO % 9.8 % (0.0-5.0); NEUTROPHILS # 4.6 10^3/uL (1.5-8.5); NEUTROPHILS % 55.5 % (36.0-66.0); PLATELET COUNT, AUTOMATED 248 10^3/uL (150-450); RED BLOOD COUNT 4.45 10^6/uL (4.00-5.40); WHITE BLOOD COUNT 8.3 10^3/uL (4.0-10.0)
[2019-12-29 07:40] LABS: ALBUMIN 3.9 GM/DL (3.2-5.2); ALT/SGPT 17 U/L (12-78); BILIRUBIN,TOTAL 0.3 MG/DL (0.2-1.0); BLOOD UREA NITROGEN 15 MG/DL (7-18); CARBON DIOXIDE LEVEL 29 MEQ/L (21-32); CHLORIDE LEVEL 105 MEQ/L (98-107); CHOLESTEROL LEVEL 187 MG/DL (<200); CREATININE FOR GFR 0.84 MG/DL (0.55-1.30); FREE T4 1.02 NG/DL (0.76-1.46); GLOMERULAR FILTRATION RATE > 60.0 (>45); GLUCOSE, FASTING 90 MG/DL (70-100); HDL CHOLESTEROL 76 MG/DL (>40); LDL CHOLESTEROL 95 MG/DL (<100); NON-HDL-C 111 MG/DL; POTASSIUM SERUM 4.7 MEQ/L (3.5-5.1); SODIUM LEVEL 140 MEQ/L (136-145); TOTAL PROTEIN 6.6 GM/DL (6.4-8.2); TRIGLYCERIDES LEVEL 80 MG/DL (<150)
== END ==
LOC: M LAB 06:06
PROVIDERS: ATTEND Nurse Practitioner Family
DX: Z13.228 Encounter for screening for other metabolic disorders (principal); R63.5 Abnormal weight gain; Z13.0 Encounter for screening for diseases of the blood and blood-forming organs and certain disorders involving the immune mechanism; F17.200 Nicotine dependence, unspecified, uncomplicated

== ENCOUNTER 2020-02-15 20:55 | Inpatient (IN) | payer MEDICAID ==
[~2020-02-15 20:55] MED LIST changes: -BUPR150T3 PO; +BUPR150T4 PO
[2020-02-15 21:31] LABS: HEMATOCRIT 46.5 % (36.0-47.0); HEMOGLOBIN 15.4 g/dl (12.0-15.5); MEAN CORPUSCULAR HEMOGLOBIN 32.7 pg (27.0-33.0); MEAN CORPUSCULAR HGB CONC 33.1 g/dl (32.0-36.5); MEAN CORPUSCULAR VOLUME 98.7 fl (80.0-96.0); PLATELET COUNT, AUTOMATED 153 10^3/uL (150-450); RED BLOOD COUNT 4.71 10^6/uL (4.00-5.40); WHITE BLOOD COUNT 4.7 10^3/uL (4.0-10.0)
[2020-02-15 21:50] LABS: AMPHETAMINES LEVEL URINE NEGATIVE (NEGATIVE); BARBITURATES URINE NEGATIVE (NEGATIVE); BENZODIAZEPINES URINE NEGATIVE (NEGATIVE); CANNABINOIDS URINE NEGATIVE (NEGATIVE); COCAINE METABOLITE URINE NEGATIVE (NEGATIVE); METHADONE URINE NEGATIVE (NEGATIVE); OPIATES URINE NEGATIVE (NEGATIVE); PHENCYCLIDINE URINE NEGATIVE (NEGATIVE)
[2020-02-15 22:14] LABS: ACETAMINOPHEN LEVEL < 2.0 UG/ML (10.0-30.0); ALBUMIN 4.3 GM/DL (3.2-5.2); ALT/SGPT 50 U/L (12-78); BILIRUBIN,DIRECT 0.2 MG/DL (0.0-0.2); BILIRUBIN,TOTAL 0.4 MG/DL (0.2-1.0); BLOOD UREA NITROGEN 7 MG/DL (7-18); CALCIUM LEVEL 8.4 MG/DL (8.8-10.2); CARBON DIOXIDE LEVEL 31 MEQ/L (21-32); CHLORIDE LEVEL 104 MEQ/L (98-107); CREATININE FOR GFR 0.77 MG/DL (0.55-1.30); ETHYL ALCOHOL (ETHANOL) 0.354 % (0.000-0.010); GLOMERULAR FILTRATION RATE > 60.0 (>45); GLUCOSE, FASTING 93 MG/DL (70-100); POTASSIUM SERUM 4.6 MEQ/L (3.5-5.1); SALICYLATE LEVEL 5.3 MG/DL (5.0-30.0); SODIUM LEVEL 141 MEQ/L (136-145); THYROID STIMULATING HORMONE 0.657 uIU/ML (0.358-3.740); TOTAL PROTEIN 7.5 GM/DL (6.4-8.2)
[2020-02-15] MEDS ORDERED: LORazepam 2 MG TAB PO PRN (22:45)
[2020-02-15] MEDS: THIAMINE 100 MG TAB PO SCH (23:17)
[2020-02-16] MEDS ORDERED: ACETAMINOPHEN TAB 650MG DOSE (2X325MG) PO ONE (02:30)
[2020-02-16] MEDS ORDERED: ONDANSETRON 4MG/2ML VIAL IV ONE (02:45)
[2020-02-16] MEDS ORDERED: ONDANSETRON 4 MG ORAL DISINTEGRATING TAB PO ONE ×3 (02:45→08:00)
[2020-02-16] MEDS ORDERED: MULTIVITAMINS/MINERALS THERAP 1 TAB PO SCH ×2 (09:00)
[2020-02-16] MEDS ORDERED: FOLIC ACID 1 MG TAB PO SCH ×2 (09:00)
[2020-02-16] MEDS: THIAMINE 100 MG TAB PO SCH ×2 (10:39→22:16)
[2020-02-16 12:46] LABS: RSV AMPLIFICATION NEGATIVE (NEGATIVE)
[2020-02-16] MEDS ORDERED: ACETAMINOPHEN TAB 650MG DOSE (2X325MG) PO PRN (13:30)
[2020-02-16] MEDS ORDERED: MOM 30ML SUSPENSION UDC PO PRN (13:30)
[2020-02-16 15:36] VITALS: BP 164/90
[2020-02-16 16:05] VITALS: BP 164/90
[2020-02-16] MEDS: LORazepam 2 MG TAB PO PRN ×2 (16:05→22:16)
[2020-02-16 22:11] VITALS: BP 158/102
[2020-02-16] MEDS: MAALOX 30 ML SUSP *UDC PO PRN (22:16)
[2020-02-16] MEDS: traZODone 50 MG TAB PO PRN (22:16)
[2020-02-17 06:00] VITALS: BP 158/92
[2020-02-17] MEDS: MULTIVITAMINS/MINERALS THERAP 1 TAB PO SCH (09:46)
[2020-02-17] MEDS: FOLIC ACID 1 MG TAB PO SCH (09:46)
[2020-02-17] MEDS: THIAMINE 100 MG TAB PO SCH ×2 (09:47→20:26)
[2020-02-17 09:55] VITALS: BP 138/79
[2020-02-17] MEDS: buPROPion **XL** TABLET 150MG (WELLBUTRIN XL) PO SCH (14:43)
[2020-02-17] MEDS: MAALOX 30 ML SUSP *UDC PO PRN ×2 (15:14→20:27)
[2020-02-17 16:41] VITALS: BP 138/90
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
[2020-02-17] MEDS: traZODone 50 MG TAB PO PRN (20:26)
[2020-02-17 20:42] VITALS: BP 135/90
[2020-02-17] MEDS: hydrOXYzine 50 MG TAB PO PRN (23:14)
[2020-02-18 06:38] VITALS: BP 155/98
[2020-02-18 06:44] VITALS: BP 155/98
[2020-02-18] MEDS: FOLIC ACID 1 MG TAB PO SCH (09:08)
[2020-02-18] MEDS: buPROPion **XL** TABLET 150MG (WELLBUTRIN XL) PO SCH (09:08)
[2020-02-18] MEDS: MULTIVITAMINS/MINERALS THERAP 1 TAB PO SCH (09:09)
[2020-02-18] MEDS: THIAMINE 100 MG TAB PO SCH ×2 (09:09→20:48)
[2020-02-18 14:00] VITALS: BP 144/88
[2020-02-18] MEDS: hydrOXYzine 50 MG TAB PO PRN ×2 (15:11→22:37)
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
[2020-02-18 17:54] VITALS: BP 144/79
[2020-02-18] MEDS: traZODone 50 MG TAB PO PRN (20:48)
[2020-02-18 21:10] VITALS: BP 140/72
[2020-02-19 05:42] VITALS: BP 136/84
[2020-02-19 06:37] VITALS: BP 136/84
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
[2020-02-19] MEDS: MULTIVITAMINS/MINERALS THERAP 1 TAB PO SCH (08:32)
[2020-02-19] MEDS: buPROPion **XL** TABLET 150MG (WELLBUTRIN XL) PO SCH (08:32)
[2020-02-19] MEDS: FOLIC ACID 1 MG TAB PO SCH (08:32)
[2020-02-19] MEDS: guaiFENesin SYRUP 200 MG/10 ML UDC PO PRN ×2 (08:32→20:32)
[2020-02-19] MEDS: THIAMINE 100 MG TAB PO SCH (08:32)
--- NOTE | 2020-02-19 08:50 | MHIPN ---
[facility] PROGRESS NOTE DATE: 02/18/2020 The patient today states, "I'm feeling good." She says she slept good. She has no complaints. MENTAL STATUS EXAMINATION: She is alert and oriented times three. She is pleasant and cooperative, verbally spontaneous. Eye contact is good. There is no formal thought disorder. She says her mood is "good." Affect full range and appropriate. She is not psychotic, suicidal, or homicidal. Concentration and memory is good. Insight and judgment good. DIAGNOSES: Other specified depressive disorder. Rule out alcohol use disorder. TREATMENT PLAN: At this point, we will continue to monitor the patient for continued elevation and stabilization of her mood and continued resolution of suicidal ideations.
[2020-02-19] MEDS: hydrOXYzine 50 MG TAB PO PRN (13:55)
[2020-02-19] MEDS: MAALOX 30 ML SUSP *UDC PO PRN (15:53)
[2020-02-19 18:02] VITALS: BP 138/72
[2020-02-19] MEDS: traZODone 50 MG TAB PO PRN (20:31)
[2020-02-20 07:03] VITALS: BP 136/84
[2020-02-20] MEDS: buPROPion **XL** TABLET 150MG (WELLBUTRIN XL) PO SCH (08:14)
[2020-02-20] MEDS: FOLIC ACID 1 MG TAB PO SCH (08:14)
[2020-02-20] MEDS: MULTIVITAMINS/MINERALS THERAP 1 TAB PO SCH (08:14)
--- NOTE | 2020-02-20 09:16 | MHDSPDOC ---
[facility] Discharge Summary Discharge Summary DATE OF ADMISSION: Feb 16, 2020 at 13:23 DATE OF DISCHARGE:Feb 20, 2020 at 11:05 DISCHARGE DIAGNOSES: Other depressive disorder Alcohol use disorder CONSULTANTS INVOLVED:[ None (basic hospitalist screening)] REASON FOR ADMISSION & TREATMENT AND PROGRESS ON THE UNIT : The patient was admitted to the inpatient mental health unit after becoming intoxicated and suicidal, she was restarted on her home bupropion 150 mg exten ded release daily and a CIWA protocol for alcohol withdrawal. This was generally not necessary as she did not score very high and had relapsed only recently on alcohol. She did well into improved over time becoming euthymic engaged in improving her insight into her problems. She was retained for a few days for observation and did well demonstrate no concerning behavior ideation, she was pleasant and cooperative during her time. Additionally she was amenable to disulfiram being sent so that she might be able to have a sober support person of, which she was able to identify many candidates to help keep her sober. DISCHARGE ASSESSMENT[improved] Legal status considerations: The patient at the time of discharge did not meet criteria for involuntary admission/extension due to having a [normal] mental status exam, [fair] insight into the situation, They are engaged in the discharge process, as well as being friendly and amenable in behavioral control and havent been engaging in any observed concerning behavior or ideation recently. They decline voluntary extension/admission at this time and must be discharged in good rob, as Im unable to make a case for holding the patient against their will. They may have historical risk factors of admissions and other interactions with psychiatry however, those are not modifiable from a clinical perspective. The patient will need to be discharged in good rob. MENTAL STATUS EXAMINATION ON DISCHARGE: [General: Well dressed with good hygiene Speech: Spontaneous and fluid Thought processes: Linear and logical Thought content: Future orientated Abstract reasoning, and computation: Intact Description of associations: Intact Description of abnormal or psychotic thoughts:Denies any suicidal or homicidal ideation. Denies any auditory or visual hallucinations. Does not appear to be responding to internal stimuli. Does not appear to be endorsing any bizarre or paranoid ideation. Judgment: fair Insight: fair Orientation: Alert and orientated 3 Recent and remote memory: Intact Attention span and concentration: Intact Fund of knowledge: Adequate Mood: "okay" Affect: Euthymic with a full range] PLAN/FOLLOWUP ARRANGEMENTS: Follow up appointments made (PCP and MH in 5 days of D/C date) and safety plan completed. Safety Planning aspects completed prior to discharge [Medication supplies limited to 7 days with 4 refills to prevent accumulation to OD] [RN reviewed crisis hotline information and other aspects to empower patient to access care in interim before next appointment.] The amount of time spent in the coordination of care for this patient was approximately 30 minutes. Vital Signs/I&Os Vital Signs Date Time Temp Pulse Resp B/P (MAP) Pulse Ox O2 Delivery O2 Flow Rate FiO2 02/20/20 07:03 97.1 71 16 136/84 (101) 98 Room Air Medications Scheduled Bupropion Hcl (Bupropion Xl) 150 Mg Tab.er.24h, 150 MG PO QAM for mood for 7 Days, #7 Disulfiram (Disulfiram) 250 Mg Tablet, 1 TAB PO DAILY for alcohol for 30 Days, #30 Allergies Coded Allergies: No Known Allergies (Unverified , 10/18/17) DOUG GEORGE DO Feb 20, 2020 09:16
[2020-02-20] MEDS ORDERED: BUPR150T4 PO (09:39)
[2020-02-20] MEDS ORDERED: DISU250T PO (09:54)
== END 2020-02-20 11:05 | disposition home or self-care (01) | DRG 754 ==
LOC: M ED 20:55 → M ED INP 02-16 13:23 → M PSY 02-16 15:30
PROVIDERS: ADMIT Psychiatry & Neurology Addiction Medicine; ATTEND Psychiatry & Neurology Addiction Medicine
DX: F32.9 Major depressive disorder, single episode, unspecified (principal); R45.850 Homicidal ideations; R45.851 Suicidal ideations; F10.10 Alcohol abuse, uncomplicated; F43.10 Post-traumatic stress disorder, unspecified

== ENCOUNTER 2020-07-06 09:57 | Inpatient (IN) | payer OTHER, MEDICAID ==
[2020-07-06] VITALS (7 sets, daily range): BP systolic 103–130; BP diastolic 55–61
[~2020-07-06] VITALS: Ht 162.6 cm; Wt 75.8 kg
[~2020-07-06 09:57] MED LIST changes: +BUPR150T12 PO; -BUPR150T4 PO; +DISU250T PO
[2020-07-06] MEDS ORDERED: NS 1,000 ML IV ONE (10:10)
[2020-07-06] MEDS ORDERED: BOOSTRIX/ADACEL VACCINE (DIPHTH/PERTUSS/ACELL/TETANUS) 0.5ML SYR IM ONE (10:15)
--- NOTE | 2020-07-06 10:30 | REP ---
INDICATION: Altered Mental Status COMPARISON: 12/22/2018 TECHNIQUE: Portable AP view of the chest FINDINGS: The mediastinum and cardiac silhouette are stable and within normal limits for portable technique. The lung page are clear without acute consolidation, effusion, or pneumothorax. Skeletal structures are intact. IMPRESSION: No acute cardiopulmonary process appreciated. <Electronically signed by Christian Butcher > 07/06/20 1027
[2020-07-06] MEDS ORDERED: ISOVUE-370 76% 100ML VIAL As Ordered ONE (10:42)
--- NOTE | 2020-07-06 10:43 | REP ---
INDICATION: Altered Mental Status COMPARISON: 10/26/2019 TECHNIQUE: Axial noncontrast images from the skull base to the thoracic inlet with coronal reformations. This CT examination was performed using the following dose reduction techniques: Automated exposure control, adjustment of mA and/or kv according to the patient's size, and use of iterative reconstruction technique. FINDINGS: Age-related atrophy along with periventricular leukomalacia and microvascular ischemic changes are appreciated and essentially unchanged compared to prior examination. The ventricles and sulci are symmetric. Maldonado-white differentiation is maintained. There is no evidence for acute intracranial hemorrhage, mass/mass effect, pathology or infarction. No extra-axial fluid collection. Calvarium is intact. Paranasal sinuses and mastoid air cells are clear. IMPRESSION: Age related atrophy and microvascular ischemic changes similar to prior examination. No acute intracranial hemorrhage, infarction, or mass/mass effect. <Electronically signed by Christian Butcher > 07/06/20 1031
--- NOTE | 2020-07-06 10:46 | REP ---
INDICATION: Altered Mental Status COMPARISON: 10/26/2019, 05/15/2018 TECHNIQUE: Axial noncontrast images from the skull base to the thoracic inlet with coronal and sagittal re-formations This CT examination was performed using the following dose reduction techniques: Automated exposure control, adjustment of mA and/or kv according to the patient's size, and use of iterative reconstruction technique. FINDINGS: Alignment is maintained and there is no evidence for acute fracture/compression injury or subluxation. Advanced multilevel degenerative changes include osteophytosis, endplate sclerosis/irregularity, disc space narrowing as well as posterior osteophytes primarily involving C4-5, C5-6, and C6-7 which remain relatively stable as compared through 2019. Foraminal narrowing due to facet hypertrophy at the above-mentioned levels also noted bilaterally and relatively similar to prior examination. Posterior elements and spinous processes are intact. Paravertebral soft tissues are normal. IMPRESSION: Advanced multilevel degenerative spondylosis relatively stable as compared through 2019. No acute fracture/compression injury or subluxation. <Electronically signed by Christian Butcher > 07/06/20 1043
[2020-07-06] MEDS ORDERED: LIDOCAINE 2% 5ML JELLY UROJET TOP ONE (10:50)
--- NOTE | 2020-07-06 10:51 | REP ---
INDICATION: Altered Mental Status COMPARISON: 12/22/2018 TECHNIQUE: Axial contrast enhanced images from the thoracic inlet to the upper abdomen using 100 ml Isovue 370 intravenous contrast material followed by CT of the abdomen and pelvis. Coronal and sagittal reformations obtained. This CT examination was performed using the following dose reduction techniques: Automated exposure control, adjustment of mA and/or kv according to the patient's size, and use of iterative reconstruction technique. FINDINGS: Mild diffuse chronic appearing age-related interstitial changes noted bilaterally. Small areas of subpleural ground-glass opacity along the left upper lobe and superior segment left lower lobe are nonspecific. No discrete focal consolidation/atelectasis. No effusion or pneumothorax. Tracheobronchial tree is patent. No adenopathy. The mediastinum demonstrates essentially normal thoracic aorta without aneurysm or dissection. Pulmonary vasculature appears normal. No cardiomegaly or pericardial effusion. Visualized thyroid appears normal. Surrounding musculoskeletal structures are intact and without acute osseous abnormality. IMPRESSION: 1. Very minimal ground-glass opacities in the left lung as described above are nonspecific. 2. No consolidation, effusion or acute mediastinal/pleuroparenchymal process appreciated. <Electronically signed by Christian Butcher > 07/06/20 1045
--- NOTE | 2020-07-06 10:55 | REP ---
INDICATION: Altered Mental Status. COMPARISON: None TECHNIQUE: Axial contrast-enhanced images from the lung bases to the pubic symphysis using 100 cc Isovue 370 intravenous contrast material. Coronal and sagittal reformations obtained. This CT examination was performed using the following dose reduction techniques: Automated exposure control, adjustment of mA and/or kv according to the patient's size, and the use of iterative reconstruction technique. FINDINGS: Liver demonstrates diffuse fatty infiltration without focal hepatic lesion. The spleen, pancreas, gallbladder, bilateral adrenal glands and kidneys are normal. The enteric system includes small hiatal hernia at the gastroesophageal junction. There is no evidence for bowel obstruction or acute inflammatory process. Normal terminal ileum and appendix are identified in the right lower quadrant. Scattered sigmoid diverticula noted without acute diverticulitis. Pelvis demonstrates normal bladder and age-appropriate prostate/seminal vesicles. Small fat containing right inguinal hernia. No ascites. No free air. No intraperitoneal or retroperitoneal adenopathy. Abdominal aorta and vasculature appear normal. Musculoskeletal structures are intact and without acute osseous abnormality. IMPRESSION: No acute abdominopelvic pathology appreciated. Diverticulosis without acute diverticulitis. Hepatosteatosis. Small fat containing right inguinal hernia. <Electronically signed by Christian Butcher > 07/06/20 0651
[2020-07-06 11:06] LABS: OSMOLALITY URINE 329 MOSM/KG (50-1400)
[2020-07-06 11:11] LABS: OSMOLALITY SERUM 230 MOSM/KG (280-301)
[2020-07-06 11:34] LABS: ACETAMINOPHEN LEVEL < 2.0 UG/ML (10.0-30.0); ALBUMIN 3.4 GM/DL (3.2-5.2); ALT/SGPT 288 U/L (12-78); BILIRUBIN,DIRECT 0.5 MG/DL (0.0-0.2); BILIRUBIN,TOTAL 1.4 MG/DL (0.2-1.0); BLOOD UREA NITROGEN 27 MG/DL (7-18); CALCIUM LEVEL 8.9 MG/DL (8.8-10.2); CARBON DIOXIDE LEVEL 24 MEQ/L (21-32); CHLORIDE LEVEL 71 MEQ/L (98-107); CK-MB VALUE MASS 125.6 NG/ML (<3.6); CPK CREATINE PHOSPHOKINASE 7708 U/L (26-192); CREATININE FOR GFR 0.85 MG/DL (0.55-1.30); ETHYL ALCOHOL (ETHANOL) < 0.003 % (0.000-0.010); FREE T4 1.69 NG/DL (0.76-1.46); GLOMERULAR FILTRATION RATE > 60.0 (>45); GLUCOSE, FASTING 95 MG/DL (70-100); MB/CK RELATIVE INDEX 1.63 (< OR =4); POTASSIUM SERUM 3.7 MEQ/L (3.5-5.1); SALICYLATE LEVEL < 1.7 MG/DL (5.0-30.0); SODIUM LEVEL 110 MEQ/L (136-145); THYROID STIMULATING HORMONE 0.453 uIU/ML (0.358-3.740); TOTAL PROTEIN 6.1 GM/DL (6.4-8.2); TROPONIN I < 0.02 NG/ML (< 0.10)
[2020-07-06 11:39] LABS: AMPHETAMINES LEVEL URINE NEGATIVE (NEGATIVE); BARBITURATES URINE NEGATIVE (NEGATIVE); BENZODIAZEPINES URINE NEGATIVE (NEGATIVE); CANNABINOIDS URINE NEGATIVE (NEGATIVE); COCAINE METABOLITE URINE NEGATIVE (NEGATIVE); METHADONE URINE NEGATIVE (NEGATIVE); OPIATES URINE NEGATIVE (NEGATIVE); PHENCYCLIDINE URINE NEGATIVE (NEGATIVE)
[2020-07-06] MEDS ORDERED: SODIUM CHLORIDE 3% 120 ML IV SCH (11:40)
[2020-07-06 11:42] LABS: HEMATOCRIT 41.4 % (36.0-47.0); HEMOGLOBIN 15.7 g/dl (12.0-15.5); MEAN CORPUSCULAR HEMOGLOBIN 32.4 pg (27.0-33.0); MEAN CORPUSCULAR VOLUME 85.4 fl (80.0-96.0); PLATELET COUNT, AUTOMATED 167 10^3/uL (150-450); RED BLOOD COUNT 4.85 10^6/uL (4.00-5.40)
[2020-07-06 11:43] LABS: WHITE BLOOD COUNT 9.1 10^3/uL (4.0-10.0)
[2020-07-06 11:44] LABS: CREATININE,RANDOM URINE 76.1 MG/DL; SODIUM,RANDOM URINE < 10 MEQ/L
[2020-07-06 11:45] LABS: MEAN CORPUSCULAR HGB CONC 37.9 g/dl (32.0-36.5)
[2020-07-06] MEDS ORDERED: LORazepam 2 MG TAB PO PRN (11:45)
--- NOTE | 2020-07-06 11:45 | REP ---
INDICATION: trauma COMPARISON: None. TECHNIQUE: AP and lateral views of the right and left humerus. FINDINGS: The osseous structures and joint spaces are intact and age-appropriate. There is no evidence for acute fracture or dislocation. Surrounding soft tissues are unremarkable. No subcutaneous emphysema or radiodense foreign body. IMPRESSION: . No acute fracture or dislocation. <Electronically signed by Christian Butcher > 07/06/20 1149
--- NOTE | 2020-07-06 11:46 | REP ---
INDICATION: trauma COMPARISON: None. TECHNIQUE: AP and lateral views of the right and left forearm. FINDINGS: The osseous structures and joint spaces are intact and age-appropriate. There is no evidence for acute fracture or dislocation. Surrounding soft tissues are unremarkable. No subcutaneous emphysema or radiodense foreign body. IMPRESSION: . No acute fracture or dislocation. <Electronically signed by Christian Butcher > 07/06/20 114
--- NOTE | 2020-07-06 11:49 | REP ---
INDICATION: trauma COMPARISON: None. TECHNIQUE: AP, lateral, bilateral oblique views . FINDINGS: The osseous structures and joint spaces are intact and age-appropriate. There is no evidence for acute fracture or dislocation. Surrounding soft tissues are unremarkable. No subcutaneous emphysema or radiodense foreign body. Degenerative changes at the bilateral hips (left greater than right). IMPRESSION: . No acute fracture or dislocation. <Electronically signed by Christian Butcher > 07/06/20 [id number]
--- NOTE | 2020-07-06 11:49 | REP ---
INDICATION: trauma COMPARISON: None. TECHNIQUE: AP and lateral views of the right and left tibia/fibula. FINDINGS: The osseous structures and joint spaces are intact and age-appropriate. There is no evidence for acute fracture or dislocation. Surrounding soft tissues are unremarkable. No subcutaneous emphysema or radiodense foreign body. IMPRESSION: . No acute fracture or dislocation. <Electronically signed by Christian Butcher > 07/06/20 1142
[2020-07-06 11:56] LABS: ANISOCYTOSIS 1+; ATYPICAL LYMPH 2 % (0-5); LYMPHOCYTES 29 % (16-44); METAMYELOCYTES 1 % (0-0); MONOCYTES 8 % (0-5); NEUTROPHILS 57 % (28-66); PLATELET ESTIMATE NORMAL (NORMAL)
[2020-07-06 11:57] LABS: TOXIC GRANULATION 1+
[2020-07-06 12:22] LABS: NT-PRO BNP 1102 PG/ML (<125)
[2020-07-06] MEDS ORDERED: OYST500T12 PO (12:28)
[2020-07-06] MEDS ORDERED: ESTR62CR PV (12:28)
[2020-07-06] MEDS ORDERED: MED REC COMMENT (12:28)
[2020-07-06] MEDS ORDERED: PREM0.3T2 PO (12:28)
[2020-07-06] MEDS ORDERED: ZOLP5TAB PO (12:28)
[2020-07-06] MEDS ORDERED: BUPR300T92 PO (12:28)
--- NOTE | 2020-07-06 12:43 | HPEPDOC ---
[facility] Medical History & Physical Date of Admission July 06, 2020 Date of Service: July 06, 2020 Attending Physician: DANE MONTERROSO DO History and Physical CHIEF COMPLAINT: Altered mental status HISTORY OF PRESENT ILLNESS: The patient apparently has been binge drinking for the past 3 weeks. She was found at home on the floor. Apparently she has suffered multiple falls which is caused bruising across her entire body, as well as abrasions on her knees and elbows. She denies any assault. EMS was called and she was brought to the em ergency department. Upon arrival she was found to be severely hyponatremic, and also rhabdomyolysis. Her alcohol level however is low, she reports that her most recent drink was approximately 1-1.5 days ago. She does not seem to be having any symptoms of delirium tremens at this time, therefore suspect that her altered mental status is currently more likely from hyponatremia. 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 She is a current smoker. Denies any illicit drug use. Apparently she had been abstinent for quite some time, but then started drinking approximately 3 weeks ago, and has been binging up until 1.5 days ago. FAMILY HISTORY: No family history of cancer, diabetes, heart disease, or psychiatric illness. REVIEW OF SYSTEMS: Constitutional: Patient denies fevers, chills, night sweats, recent weight gain/loss. HEENT: Patient denies postnasal drip, epistaxis, sore throat, difficulty chewing or swallowing food. Cardiovascular: Patient denies chest discomfort/pain, palpitations, exertional dyspnea, orthopnea, edema of the extremities, claudication. Respiratory: Patient denies dyspnea, wheezing, hemoptysis, sputum production. Gastrointestinal: Patient denies nausea, vomiting, diarrhea, constipation, abdominal pain, melena, hematochezia, hematemesis, jaundice. PHYSICAL EXAMINATION: General: Lethargic, but easily arousable. She does not appear to be in acute distress at this time. HEENT: Multiple bruises noted, especially surrounding the right eye Respiratory: Clear to auscultation bilaterally with no wheezes, rales, or rhonchi. Cardiovascular: Regular rate and rhythm, with no rubs, gallops, or murmur. Abdomen: Soft, nontender, nondistended, no hepatosplenomegaly appreciated. Bowel sounds present. Extremities: 2+ pulses in the radial and dorsalis pedis bilaterally. Significant bruising affecting the bilateral upper and lower extremities. She also does have abrasions on her elbows and knees. Her right second toe appears injured as well ASSESSMENT/PLAN: Altered mental status secondary to alcohol abuse and hyponatremia Metabolic encephalopathy Hyponatremia Beer Potomania -Severe hyponatremia and noted upon admission to the emergency department. Nephrology has already been consulted. She will be started initially on hypertonic 3% saline at 40 ML's per hour, and we will recheck BMP every 2 hours. Alcohol abuse -Will hold off on starting CIWA protocol at this time given that she is not showing any signs of delirium tremens at this time. Additionally, we do not want to give her any benzodiazepines if we do not have to as this will confound the evaluation of her mental status. -Will start her with multivitamin, thiamine, and folate supplementation at this time. Depression PTSD -She reports that she was previously on Wellbutrin, and she was discharged from the [facility] on this medication in February 2020. The patient states that she was feeling fine and therefore discontinued taking this medicine a few months ago. Will restart it again at this time as she apparently does much better while on it. Vital Signs Vital Signs Date Time Temp Pulse Resp B/P (MAP) Pulse Ox O2 Delivery O2 Flow Rate FiO2 07/06/20 12:12 93 97 07/06/20 11:45 129/76 (93) 07/06/20 10:10 97.7 18 Room Air Laboratory Data Labs 24H Laboratory Tests 2 07/06/20 10:17: Neutrophils (%) (Auto) , Nucleated Red Blood Cells % (auto) 0.0, Neutrophils 57, Band Neutrophils 3, Lymphocytes (Manual) 29, Monocytes (Manual) 8H, Metamyelocytes 1H, Atypical Lymphocytes 2, Anisocytosis 1+, Toxic Granulation 1+, Platelet Estimate NORMAL, POC Glucose (Misc Panel) 103, POC Sodium (Misc Panel) 106*L, POC Potassium (Misc Panel) 4.0, POC Chloride (Misc Panel) 73L, POC Total CO2 (Misc Panel) 27.0, POC Blood Urea Nitrogen (Misc Panel 34H, POC Ionized Calcium (Misc Panel) 4.2L, POC Creatinine (Misc Panel) 1.0, POC Hematocrit (Misc Panel) 47.0, Anion Gap 15, Glomerular Filtration Rate > 60.0, Osmolality 230L, Calcium Level 8.9, Total Bilirubin 1.4H, Direct Bilirubin 0.5H, Aspartate Amino Transf (AST/SGOT) 500H, Alanine Aminotransferase (ALT/SGPT) 288H, Alkaline Phosphatase 97, Ammonia 20, Total Creatine Kinase 7708H, Creatine Kinase MB 125.6H, Creatine Kinase MB Relative Index 1.63, Troponin I < 0.02, YR-[id number]-[id number]-Type Natriuretic Peptide 1102H, Total Protein 6.1L, Albumin 3.4, Albumin/Globulin Ratio 1.3, Thyroid Stimulating Hormone (TSH) 0.453, Free Thy roxine 1.69H, Salicylates Level < 1.7L, Acetaminophen Level < 2.0L, Ethyl Alcohol Level < 0.003 07/06/20 10:21: Lactic Acid Level 2.7*H 07/06/20 10:53: Urine Color YELLOW, Urine Appearance CLEAR, Urine pH 6.0, Urine Specific [place] 1.011, Urine Protein 1+H, Urine Glucose (UA) 1+H, Urine Ketones TRACEH, Urine Blood 3+H, Urine Nitrite NEGATIVE, Urine Bilirubin NEGATIVE, Urine Urobilinogen 0.2, Urine Leukocyte Esterase NEGATIVE, Urine WBC (Auto) 2, Urine RBC (Auto) 2, Urine Hyaline Casts (Auto) 0, Urine Bacteria (Auto) 1+H, Urine Squamous Epithelial Cells 1, Urine Amorphous Sediment SMALLH, Urine Granular Casts (Auto) 1, Urine Sperm (Auto) , Urine Osmolality 329, Urine Random Creatinine 76.1, Urine Random Sodium < 10, Urine Opiates Screen NEGATIVE, Urine Methadone Screen NEGATIVE, Urine Barbiturates Screen NEGATIVE, Urine Phencyclidine Screen NEGATIVE, Urine Amphetamines Screen NEGATIVE, Urine Benzodiazepines Screen NEGATIVE, Urine Cocaine Metabolite Screen NEGATIVE, Urine Cannabinoids Screen NEGATIVE 07/06/20 11:34: CBC/BMP Laboratory Tests 07/06/20 10:17 Microbiology Microbiology 07/06/20 Blood Culture, Received Pending Home Medications Scheduled Bupropion HCl (Bupropion Xl) 300 Mg Tab.er.24h, 300 MG PO DAILY Calcium Carbonate/Vitamin D3 (Oyster Shell 500-Vit D3 200 Tb) 1 Each Tablet, 1 TAB PO DAILY Conjugated Estrogens (Premarin) 30 Gm Cream.appl, 0.5 GM PV 2XW Estrogen,Con/M-Progest Acet (Prempro 0.3 mg-1.5 mg Tablet) 1 Each Tablet, 1 TAB PO DAILY Zolpidem Tartrate (Zolpidem Tartrate) 5 Mg Tablet, 5 MG PO QHS Miscellaneous Medications [Med Rec Comment] UNABLE TO VERIFY MEDS WITH PT, OBTAINED MED LIST FROM PHARMACY Allergies Coded Allergies: No Known Allergies (Unverified , 10/18/17) A-FIB/CHADSVASC A-FIB History Current/History of A-Fib/PAF?: No DANE MONTERROSO DO July 06, 2020 12:40
[2020-07-06 12:51] LABS: RSV AMPLIFICATION NEGATIVE (NEGATIVE)
--- NOTE | 2020-07-06 13:26 | ECGEPIP ---
[facility] - ED Test Date: 2020-07-06 Pat Name: MEGA DIAZ Department: Room: - Gender: Female Trials Manager: NASREEN : 1960 Requested By: Zeke Finch Order Number: [id number] Reading MD: Zeke Finch Measurements Intervals [place] Rate: 94 P: 65 OK: 120 QRS: 18 QRSD: 78 T: 46 QT: 378 QTc: 472 Interpretive Statements Normal sinus rhythm Nonspecific ST abnormality short pr interval Borderline prolonged QTc cw 10/25/[address] T wave changes Electronically Signed on 07-06-2020 13:26:03 EDT by Zeke Finch
[2020-07-06 13:42] LABS: BLOOD UREA NITROGEN 26 MG/DL (7-18); CARBON DIOXIDE LEVEL 22 MEQ/L (21-32); CHLORIDE LEVEL 75 MEQ/L (98-107); GLOMERULAR FILTRATION RATE > 60.0 (>45); GLUCOSE, FASTING 62 MG/DL (70-100); POTASSIUM SERUM 3.5 MEQ/L (3.5-5.1); SODIUM LEVEL 114 MEQ/L (136-145)
[2020-07-06] MEDS ORDERED: SODIUM CHLORIDE 3% 500 ML IV SCH ×2 (13:50→17:25)
[2020-07-06 14:33] LABS: BLOOD UREA NITROGEN 26 MG/DL (7-18); CALCIUM LEVEL 7.8 MG/DL (8.8-10.2); CARBON DIOXIDE LEVEL 19 MEQ/L (21-32); CHLORIDE LEVEL 79 MEQ/L (98-107); CREATININE FOR GFR 0.64 MG/DL (0.55-1.30); GLOMERULAR FILTRATION RATE > 60.0 (>45); GLUCOSE, FASTING 67 MG/DL (70-100); SODIUM LEVEL 112 MEQ/L (136-145)
[2020-07-06] MEDS ORDERED: POTASSIUM CHLORIDE 10 MEQ SR TABLET PO ONE (15:00)
--- NOTE | 2020-07-06 15:02 | ER ---
ER CONSULTATION DATE: 07/06/2020 REQUESTING PHYSICIAN: Dr. Zeke Maldonado in the emergency room. CONSULTING PHYSICIAN: Dr. Travis REASON FOR CONSULTATION: Management of severe hyponatremia. CHIEF COMPLAINT: Patient was brought to the emergency room because of altered mental status and falls. HISTORY OF PRESENT ILLNESS: Chapin Fernandez is a 59-year-old female with past medical history of depression, alcohol abuse, and posttraumatic stress disorder (PTSD). She has normal renal function at baseline. She was brought to the emergency room because she was found unconscious at home. Patient admitted that for the past few days she has been binge drinking. She had a fight with her daughter, and after that, about a day ago, she drank a bottle of Tequila, and patient admitted that she was feeling very weak, tremulous, and dizzy, and she has been having multiple falls at home. She was found to have multiple bruises on the body, including bruises on both knees and the right eye and abrasions on the knees as well. Patient denies any assault and reports that she has been falling herself at home. In the emergency room, further lab evaluation showed that patient was severely hyponatremic. Stat labs showed a sodium of 106; however, the inpatient labs showed a sodium of 110. Patient also had mild rhabdomyolysis with a creatine phosphokinase (CPK) of 7708 on arrival. Because of severe symptomatic hyponatremia, stat nephrology consult was requested. Patient needed my immediate attention. I went and evaluated the patient and discussed the patient with the emergency room (ER) physician, Dr. Zeke Maldonado. MEDICAL HISTORY: 1. Alcohol abuse. 2. Depression. 3. PTSD. SURGICAL HISTORY: 1. Status post tubal ligation. 2. History of foot surgeries back in 2018. ALLERGIES: No known drug allergies. FAMILY HISTORY: No significant family history of end-stage renal disease requiring hemodialysis. SOCIAL HISTORY: Patient is . She is an active smoking. She denies any illicit drug abuse. She has been binge drinking for the last 3 weeks. Last drink was about 2 days ago. REVIEW OF SYSTEMS: CONSTITUTIONAL: Patient denies any fever or chills, but she does report feeling very weak. EYES: She denies any blurry vision or double vision. ENT: Denies any dysphagia or odynophagia. CARDIOVASCULAR: Denies any chest pain, palpitations. RESPIRATORY: Denies any shortness of breath or cough. GASTROINTESTINAL: Reports decreased appetite and nausea. GENITOURINARY: She denies any dysuria or hematuria. MUSCULOSKELETAL: She reports muscle weakness and multiple falls. CENTRAL NERVOUS SYSTEM: She reports multiple falls and weakness. SKIN: She has multiple abrasions on the skin. HEMATOLOGICAL/ONCOLOGICAL: She denies any easy bleeding or bruising. All other review of systems is negative. PHYSICAL EXAMINATION: GENERAL: Patient is awake, drowsy, but oriented times three. VITAL SIGNS: Temperature is 98.2 degrees Fahrenheit, blood pressure 115/56, pulse is 100, respiratory rate of 20, saturating 95% on room air. HEAD AND NECK: Mucous membranes are moist. Neck is supple. Mildly elevated jugular venous distention (JVD). She has ecchymosis around the right eye. CARDIOVASCULAR: S1, S2. Tachycardia was noted. No edema of the bilateral lower extremities. RESPIRATORY: Mildly decreased breath sounds at the bases with mild inspiratory crackles at the bases. No active rales or rhonchi. ABDOMEN: Soft, obese. Positive bowel sounds. Nontender. No organomegaly. MUSCULOSKELETAL: Patient has abrasions on both knees and ecchymosis around the knees as well. CENTRAL NERVOUS SYSTEM: Patient is awake. She is able to follow commands and move extremities. LABORATORY REVIEW: CBC showed a WBC 9.1, hemoglobin 15.7, platelets are 167. Urinalysis showed 1+ protein, trace ketones. Urine osmolality was 329. Creatinine was 76.1 and sodium was less than 10. BMP on arrival showed sodium 110, potassium 3.7, chloride 71, bicarbonate 24, BUN 27, creatinine 0.85. Serum osmolality is 230. Lactic acid was 2.6. Calcium 8. Total bilirubin 1.4. AST 500, ALT 288. Ammonia is 20. CPK 7708. ProBNP is 1102. TSH 0.4, free T4 if 1.69. Urine toxicology: Ethyl alcohol is less than 0.003. Rest of toxicology is negative. Microbiology: Blood cultures are pending. IMAGING: CT of the head is done, which showed age-related atrophy and microvascular ischemic changes. CT of the chest was done, which showed very minimal ground-glass opacities in the left lung. No consolidation, effusion, or acute pleural parenchymal process was noted. HOME MEDICATIONS: - bupropion 300 mg by mouth daily - conjugated estrogen, Premarin 0.5 grams per vagina two times a week - estrogen/progesterone combination one tablet by mouth daily - Ambien 5 mg by mouth every night ASSESSMENT: A 59-year-old female with past medical history of depression and posttraumatic stress disorder (PTSD), recently binge drinking, admitted at this time with severe symptomatic hyponatremia with falls and multiple bruises and lacerations. PLAN: 1. Severe symptomatic hyponatremia. Patient is not volume overloaded. Patient is currently not dehydrated. She is either euvolemic or mildly volume overloaded. She does not need normal saline at this time. Because of severe symptomatic hyponatremia, she has been started on hypertonic saline 40 mL an hour for a total of 3 hours. Repeat BMP done in the afternoon showed sodium of 114, which is clinically getting better. I am aiming for a sodium of at least 115 by tonight, and by tomorrow morning we shall try increasing it up to 120. Continue to monitor basic metabolic profile (BMP) every 2 hours at this time. 2. Mild rhabdomyolysis. Patient was on the floor and had multiple falls. Creatine phosphokinase (CPK) is slightly elevated; however, I would avoid aggressive IV fluid hydration with normal saline, because we need to correct her hyponatremia first gradually. 3. Acute alcoholic hepatitis. Patient's total bilirubin, AST, and ALT are elevated. That is because of her binge drinking. Continue thiamine and folic acid at this time. 4. History of posttraumatic stress disorder (PTSD) and depression. Okay to continue bupropion 300 mg by mouth daily. Thank you for involving me in the care of this patient. I shall be happy to follow the patient along with the hospitalist team for management of her hyponatremia.
[2020-07-06] MEDS: ENOXAPARIN 40MG/0.4ML SYRINGE (J1650 PER 10MG) SC SCH (15:36)
[2020-07-06] MEDS ORDERED: ONDANSETRON 4MG/2ML VIAL IV SCH (16:00)
[2020-07-06 16:35] LABS: CHLORIDE,RANDOM URINE < 10 MEQ/L; CREATININE,RANDOM URINE 49.2 MG/DL; SODIUM,RANDOM URINE < 10 MEQ/L
[2020-07-06 17:02] LABS: BLOOD UREA NITROGEN 25 MG/DL (7-18); CALCIUM LEVEL 8.2 MG/DL (8.8-10.2); CARBON DIOXIDE LEVEL 19 MEQ/L (21-32); CHLORIDE LEVEL 79 MEQ/L (98-107); CREATININE FOR GFR 0.61 MG/DL (0.55-1.30); GLOMERULAR FILTRATION RATE > 60.0 (>45); GLUCOSE, FASTING 71 MG/DL (70-100); POTASSIUM SERUM 3.3 MEQ/L (3.5-5.1); SODIUM LEVEL 112 MEQ/L (136-145)
[2020-07-06] MEDS ORDERED: POTASSIUM CHLORIDE 10% LIQ 20 MEQ/15 ML UDC PO ONE (17:45)
[2020-07-06] MEDS ORDERED: D5/0.9%NACL 1000ML IV ONE (18:00)
[2020-07-06] MEDS ORDERED: KCL 40MEQ IN D5/NS 1000ML 1,000 ML IV SCH (19:00)
[2020-07-06] MEDS ORDERED: ZINC OXIDE 30.6% CREAM 92GM TUBE (SECURA EPC) TOP PRN (20:15)
[2020-07-06] MEDS: ONDANSETRON 4MG/2ML VIAL IV PRN (20:19)
[2020-07-06] MEDS: THIAMINE 100 MG TAB PO SCH ×2 (20:19→20:21)
[2020-07-06 20:55] LABS: BLOOD UREA NITROGEN 24 MG/DL (7-18); CALCIUM LEVEL 7.7 MG/DL (8.8-10.2); CARBON DIOXIDE LEVEL 19 MEQ/L (21-32); CHLORIDE LEVEL 86 MEQ/L (98-107); CREATININE FOR GFR 0.65 MG/DL (0.55-1.30); GLOMERULAR FILTRATION RATE > 60.0 (>45); GLUCOSE, FASTING 139 MG/DL (70-100); POTASSIUM SERUM 3.4 MEQ/L (3.5-5.1); SODIUM LEVEL 118 MEQ/L (136-145)
[2020-07-06] MEDS ORDERED: THIAMINE 100 MG TAB PO SCH (21:00)
[2020-07-06 21:05] LABS: OSMOLALITY URINE 294 MOSM/KG (50-1400)
[2020-07-06 22:44] LABS: BLOOD UREA NITROGEN 22 MG/DL (7-18); CALCIUM LEVEL 7.8 MG/DL (8.8-10.2); CARBON DIOXIDE LEVEL 23 MEQ/L (21-32); CHLORIDE LEVEL 88 MEQ/L (98-107); CREATININE FOR GFR 0.62 MG/DL (0.55-1.30); GLOMERULAR FILTRATION RATE > 60.0 (>45); GLUCOSE, FASTING 146 MG/DL (70-100); POTASSIUM SERUM 3.6 MEQ/L (3.5-5.1); SODIUM LEVEL 122 MEQ/L (136-145)
[2020-07-06] MEDS ORDERED: KCL 20MEQ IN D5W 1000ML 1,000 ML IV SCH (23:10)
[2020-07-07] VITALS: BP 120/60
[2020-07-07 01:45] LABS: BLOOD UREA NITROGEN 18 MG/DL (7-18); CALCIUM LEVEL 7.8 MG/DL (8.8-10.2); CARBON DIOXIDE LEVEL 23 MEQ/L (21-32); CHLORIDE LEVEL 91 MEQ/L (98-107); GLOMERULAR FILTRATION RATE > 60.0 (>45); GLUCOSE, FASTING 142 MG/DL (70-100); POTASSIUM SERUM 4.1 MEQ/L (3.5-5.1); SODIUM LEVEL 123 MEQ/L (136-145)
[2020-07-07 04:00] VITALS: BP 123/58
[2020-07-07 06:58] LABS: HEMATOCRIT 38.4 % (36.0-47.0); MEAN CORPUSCULAR HEMOGLOBIN 32.7 pg (27.0-33.0); MEAN CORPUSCULAR HGB CONC 36.5 g/dl (32.0-36.5); MEAN CORPUSCULAR VOLUME 89.7 fl (80.0-96.0); PLATELET COUNT, AUTOMATED 167 10^3/uL (150-450); RED BLOOD COUNT 4.28 10^6/uL (4.00-5.40); WHITE BLOOD COUNT 9.7 10^3/uL (4.0-10.0)
[2020-07-07 07:56] LABS: BLOOD UREA NITROGEN 15 MG/DL (7-18); CALCIUM LEVEL 7.3 MG/DL (8.8-10.2); CARBON DIOXIDE LEVEL 20 MEQ/L (21-32); CHLORIDE LEVEL 92 MEQ/L (98-107); CPK CREATINE PHOSPHOKINASE 1909 U/L (26-192); CREATININE FOR GFR 0.52 MG/DL (0.55-1.30); GLOMERULAR FILTRATION RATE > 60.0 (>45); GLUCOSE, FASTING 150 MG/DL (70-100); POTASSIUM SERUM 4.2 MEQ/L (3.5-5.1); SODIUM LEVEL 122 MEQ/L (136-145)
[2020-07-07 08:00] VITALS: BP 109/56
[2020-07-07] MEDS: PANTOPRAZOLE 40MG VIAL (C9113 PER 1) IV SCH (08:57)
[2020-07-07] MEDS: MULTIVITAMINS/MINERALS THERAP 1 TAB PO SCH (08:57)
[2020-07-07] MEDS: ENOXAPARIN 40MG/0.4ML SYRINGE (J1650 PER 10MG) SC SCH (08:57)
[2020-07-07] MEDS: THIAMINE 100 MG TAB PO SCH (08:57)
[2020-07-07] MEDS: MORPHINE 2 MG/ML 1ML VIAL (J2270) IV PRN ×3 (08:58→21:50)
[2020-07-07] MEDS: FOLIC ACID 1 MG TAB PO SCH (08:59)
[2020-07-07] MEDS ORDERED: MULTIVITAMINS/MINERALS THERAP 1 TAB PO SCH (09:00)
[2020-07-07] MEDS ORDERED: FOLIC ACID 1 MG TAB PO SCH (09:00)
[2020-07-07] MEDS ORDERED: buPROPion **XL** TABLET 150MG (WELLBUTRIN XL) PO SCH (09:00)
--- NOTE | 2020-07-07 09:04 | IPNPDOC ---
Text Note Date of Service The patient was seen on 07/07/20. NOTE Subjective: Patient is a 59-year-old female with a PMHx of Alcohol abuse, Depression, PTSD , who presented to the emergency room after experiencing 3 week s of binge drinking found at home on the floor. Patient reported falling multiple times with bruising across her body as well as abrasions across her knees and elbows. Upon arrival to emergency room, patient was found to be hyponatremic and was admitted to the hospital service for further evaluation and treatment. Nephrology was called on consultation. Patient was seen and examined at the bedside. Patient is reporting diffuse body aches. Denies any chest pain, shortness of breath or palpitations. Has not experience any significant cough, nausea, vomiting, diarrhea. Patient has a Palomino catheter in place. Objective: Vitals (See below) General: Lying in bed, reports body aches, AAOx3 HEENT: NC, AT CVS: +S1S2 Lungs: Fair air entry b/l, -w/r/r Abdomen: Soft, ND, mild diffuse tenderness Extremities: - Edema, - Calf tenderness Skin: Multiple skin abrasions throughout her knees, legs, elbows Imaging: CT head 07/06: Age related atrophy and microvascular ischemic changes similar to prior examination. No acute intracranial hemorrhage, infarction, or mass/mass effect. CXR 07/06: No acute cardiopulmonary process appreciated. Chest CT 07/06: 1. Very minimal ground-glass opacities in the left lung as described above are nonspecific. 2. No consolidation, effusion or acute mediastinal/pleuroparenchymal process appreciated. CT Cervical Spine 07/06: Advanced multilevel degenerative spondylosis relatively stable as compared through 2019. No acute fracture/compression injury or subluxation. CT abdomen / pelvis 07/06: No acute abdominopelvic pathology appreciated. Diverticulosis without acute diverticulitis. Hepatosteatosis. Small fat containing right inguinal hernia. Femur XR 07/06: No acute fracture or dislocation. Humerus XR 07/06: No acute fracture or dislocation. Radius XR 07/06: No acute fracture or dislocation. Tib /fib XR 07/06: No acute fracture or dislocation. Assessment and plan: s/p Acute metabolic encephalopathy - possibly 2/2 hyponatremia - Patient currently appears to be oriented to person, place and time - Can answer question appropriately Hyponatremia - possibly 2/2 beer potomania - Patient's sodium has been slowly improving appropriately - Patient has received hypertonic saline - Fluid management as per nephrology - Nephrology on consultation; we appreciate their input Rhabdomyolysis - CK levels improving - c/w fluids Alcohol abuse - Continue with thiamine, folate, multivitamins - Continue with Cipro protocol with Ativan Depression / PTSD - Patient was previously on Wellbutrin, however, has stopped the use of this GI prophylaxis - Will start Protonix DVT prophylaxis - c/w Lovenox Disposition: - Awaiting clinical improvement VSZachary I+O VSZachary I+O Laboratory Tests 07/06/20 10:17 07/06/20 12:49 07/06/20 14:02 07/06/20 16:16 07/06/20 20:18 07/06/20 22:11 07/07/20 01:05 07/07/20 06:09 Vital Signs Date Time Temp Pulse Resp B/P (MAP) Pulse Ox O2 Delivery O2 Flow Rate FiO2 07/07/20 06:00 97.8 07/07/20 04:00 1.0 07/07/20 04:00 89 16 123/58 (79) 100 Nasal Cannula I&O- Last 24 Hours up to 6 AM 07/07/20 06:00 Intake Total 1764.5 ml Output Total 1575 ml Balance 189.5 ml KENNETH ALCOCER MD July 07, 2020 09:04
[2020-07-07 12:00] VITALS: BP 112/55
[2020-07-07 12:56] LABS: BLOOD UREA NITROGEN 13 MG/DL (7-18); CARBON DIOXIDE LEVEL 24 MEQ/L (21-32); CHLORIDE LEVEL 91 MEQ/L (98-107); CPK CREATINE PHOSPHOKINASE 1668 U/L (26-192); CREATININE FOR GFR 0.63 MG/DL (0.55-1.30); GLOMERULAR FILTRATION RATE > 60.0 (>45); GLUCOSE, FASTING 123 MG/DL (70-100); POTASSIUM SERUM 3.9 MEQ/L (3.5-5.1); SODIUM LEVEL 122 MEQ/L (136-145)
[2020-07-07 13:01] LABS: OSMOLALITY URINE 392 MOSM/KG (50-1400)
[2020-07-07 13:27] LABS: CHLORIDE,RANDOM URINE 14 MEQ/L; CREATININE,RANDOM URINE 89.5 MG/DL; SODIUM,RANDOM URINE < 10 MEQ/L
[2020-07-07] MEDS ORDERED: NS 1,000 ML IV SCH (13:30)
--- NOTE | 2020-07-07 15:49 | IPN ---
NEPHROLOGY PROGRESS NOTE DATE: 07/07/2020 SUBJECTIVE: Patient was seen and examined at the bedside today morning in the intensive care unit (ICU). The last 24 hour events and labs were reviewed and I was actually called for each lab result. Multiple fluid changes were made yesterday. Patient was severely hyponatremic. Initially, she needed hypertonic saline. Later on she needed intravenous (IV) D5 normal saline bolus and potassium chloride (KCl) with D5 normal saline as well. Her sodium corrected from 110 on arrival to 122 overnight and at that time, all saline-containing IV fluids were stopped, then she had to be started on KCl with D5W and she remained on IV D5W and sodium is stable at 122 since last night. Patient is much more awake and alert today and she reports that she is feeling better. She ate some breakfast today morning. Her CPK is also getting better. Patient has a good urine output. OBJECTIVE: VITAL SIGNS: Temperature 97.4 degrees Fahrenheit, blood pressure 109/56, pulse 86, respiratory rate 18, saturating 98% on nasal cannula at 1 liter. INTAKE AND OUTPUT: Urine output recorded as 1.5 liters yesterday, currently it is not recorded. I saw in the bag there was at least 300 mL of urine. Weight in the bed scale is 74.8 kg. PHYSICAL EXAMINATION: GENERAL: Patient is awake, alert, oriented times three, laying in bed. HEAD AND NECK EXAM: Patient has a bruise around the right eye and on the chin. Mucous membranes are moist. Neck is supple. There is no jugular venous distention (JVD). CARDIOVASCULAR: S1, S2. Regular rate. No edema of the bilateral lower extremities. RESPIRATORY: Chest is clear to auscultation bilaterally. Bilateral equal air entry. No rales or rhonchi. ABDOMEN: Soft. Positive bowel sounds. Nontender. No organomegaly MUSCULOSKELETAL: Patient has abrasions and bruises on bilateral knees. CENTRAL NERVOUS SYSTEM ([employer]): No focal deficits. Power is 5/5 in all extremities. LABORATORY REVIEW: CBC showed WBC 9.7, hemoglobin 14, platelets 167. BMP showed sodium 122, potassium 3.9, chloride 91, bicarbonate 24, BUN 13, creatinine 0.6, glucose 123, lactic acid 1.9, calcium 8. Total CK 1668. MICROBIOLOGY: Blood cultures are negative so far. CURRENT INPATIENT MEDICATIONS: Patient's medications were all reviewed by myself. IV D5W was stopped early in the morning. I have started the patient on normal saline at 100 mL/hour now. ASSESSMENT AND PLAN: 1. Hyponatremia. Patient was given hypertonic saline and then D5 saline with potassium chloride overnight. Sodium did slightly overcorrect and for that, she had to be kept on D5W overnight. Right now, I have restarted the patient on normal saline. Continue BMP monitoring every 4 hours. Patient can be transferred out of intensive care unit (ICU) now. 2. Mild rhabdomyolysis. Patient was given IV fluid hydration. CPK level is improving now. 3. Hypokalemia. It has resolved with oral and IV potassium administration. 4. Acute alcoholic hepatitis. Patient had been binge drinking. Liver function tests (LFTs) will be repeated with the next lab draw. 5. History of depression and posttraumatic stress disorder (PTSD). All the antipsychotics and antidepressants are on hold because of severe hyponatremia. 6. Acute metabolic encephalopathy. It was secondary to hyponatremia. Patient is clinically significantly better. She is able to communicate and she is not drowsy anymore. TOTAL CRITICAL CARE TIME SPENT IN THE MANAGEMENT OF THIS PATIENT IN THE ICU EXCLUDING ALL PROCEDURES: 40 minutes.
[2020-07-07 16:00] VITALS: BP 106/78
[2020-07-07 16:46] LABS: BLOOD UREA NITROGEN 13 MG/DL (7-18); CALCIUM LEVEL 7.7 MG/DL (8.8-10.2); CARBON DIOXIDE LEVEL 26 MEQ/L (21-32); CHLORIDE LEVEL 94 MEQ/L (98-107); CREATININE FOR GFR 0.53 MG/DL (0.55-1.30); GLOMERULAR FILTRATION RATE > 60.0 (>45); GLUCOSE, FASTING 95 MG/DL (70-100); POTASSIUM SERUM 3.9 MEQ/L (3.5-5.1); SODIUM LEVEL 125 MEQ/L (136-145)
[2020-07-07] MEDS: ONDANSETRON 4MG/2ML VIAL IV PRN (19:44)
[2020-07-07 20:00] VITALS: BP 110/57
[2020-07-07 21:02] LABS: BLOOD UREA NITROGEN 12 MG/DL (7-18); CALCIUM LEVEL 7.9 MG/DL (8.8-10.2); CARBON DIOXIDE LEVEL 23 MEQ/L (21-32); CHLORIDE LEVEL 95 MEQ/L (98-107); CREATININE FOR GFR 0.62 MG/DL (0.55-1.30); GLOMERULAR FILTRATION RATE > 60.0 (>45); GLUCOSE, FASTING 124 MG/DL (70-100); POTASSIUM SERUM 3.8 MEQ/L (3.5-5.1); SODIUM LEVEL 127 MEQ/L (136-145)
[2020-07-07] MEDS ORDERED: D5W IV SCH (21:15)
[2020-07-07] MEDS ORDERED: KCL IV SCH (21:15)
[2020-07-07] MEDS ORDERED: THIAMINE 100 MG TAB PO ONE (21:40)
[2020-07-07] MEDS: LIDOCAINE 2% JELLY 5ML TUBE TOP SCH (21:53)
[2020-07-08] VITALS: BP 115/58
[2020-07-08] MEDS ORDERED: PERCOCET 5MG/325MG TAB PO ONE (00:15)
[2020-07-08] MEDS: RAMELTEON 8 MG TAB (ROZEREM) PO SCH ×2 (00:24→20:59)
[2020-07-08] MEDS: PERCOCET 5MG/325MG TAB PO PRN ×5 (00:25→18:18)
[2020-07-08 00:51] LABS: BLOOD UREA NITROGEN 10 MG/DL (7-18); CARBON DIOXIDE LEVEL 24 MEQ/L (21-32); CHLORIDE LEVEL 95 MEQ/L (98-107); CREATININE FOR GFR 0.54 MG/DL (0.55-1.30); GLOMERULAR FILTRATION RATE > 60.0 (>45); GLUCOSE, FASTING 106 MG/DL (70-100); POTASSIUM SERUM 4.7 MEQ/L (3.5-5.1); SODIUM LEVEL 126 MEQ/L (136-145)
[2020-07-08 04:00] VITALS: BP 109/60
[2020-07-08 05:26] LABS: HEMATOCRIT 34.9 % (36.0-47.0); HEMOGLOBIN 12.6 g/dl (12.0-15.5); MEAN CORPUSCULAR HEMOGLOBIN 32.7 pg (27.0-33.0); MEAN CORPUSCULAR HGB CONC 36.1 g/dl (32.0-36.5); MEAN CORPUSCULAR VOLUME 90.6 fl (80.0-96.0); PLATELET COUNT, AUTOMATED 166 10^3/uL (150-450); RED BLOOD COUNT 3.85 10^6/uL (4.00-5.40); WHITE BLOOD COUNT 8.7 10^3/uL (4.0-10.0)
[2020-07-08 06:02] LABS: BLOOD UREA NITROGEN 11 MG/DL (7-18); CALCIUM LEVEL 8.3 MG/DL (8.8-10.2); CARBON DIOXIDE LEVEL 24 MEQ/L (21-32); CHLORIDE LEVEL 96 MEQ/L (98-107); CREATININE FOR GFR 0.46 MG/DL (0.55-1.30); GLOMERULAR FILTRATION RATE > 60.0 (>45); GLUCOSE, FASTING 119 MG/DL (70-100); POTASSIUM SERUM 3.9 MEQ/L (3.5-5.1); SODIUM LEVEL 126 MEQ/L (136-145)
[2020-07-08 08:00] VITALS: BP 119/61
--- NOTE | 2020-07-08 08:34 | IPNPDOC ---
Text Note Date of Service The patient was seen on 07/08/20. NOTE Subjective: Patient is a 59-year-old female with a PMHx of Alcohol abuse, Depression, PTSD , who presented to the emergency room after experiencing 3 week s of binge drinking found at home on the floor. Patient reported falling multiple times with bruising across her body as well as abrasions across her knees and elbows. Upon arrival to emergency room, patient was found to be hyponatremic and was admitted to the hospital service for further evaluation and treatment. Nephrology was called on consultation. Patient was seen and examined at the bedside. Patient reports that her pain is better controlled. She denies any chest pain, shortness breath, palpitations. Has not experience any nausea, vomiting or diarrhea. Patient has a Palomino catheter that remains in place. Patient will be working with physical therapy today. Objective: Vitals (See below) General: Patient is laying flat in bed, appears to be comfortable, not in any acute distress, is awake, alert and oriented to person, place and time HEENT: NC, AT CVS: +S1S2 Lungs: Fair air entry b/l, -w/r/r Abdomen: Abdomen is soft without any distention or tenderness Extremities: Lower extremities do not reveal any pitting edema, - Calf tenderness Skin: Multiple skin abrasions throughout her knees, legs, elbows Imaging: CT head 07/06: Age related atrophy and microvascular ischemic changes similar to prior examination. No acute intracranial hemorrhage, infarction, or mass/mass effect. CXR 07/06: No acute cardiopulmonary process appreciated. Chest CT 07/06: 1. Very minimal ground-glass opacities in the left lung as described above are nonspecific. 2. No consolidation, effusion or acute mediastinal/pleuroparenchymal process appreciated. CT Cervical Spine 07/06: Advanced multilevel degenerative spondylosis relatively stable as compared through 2019. No acute fracture/compression injury or subluxation. CT abdomen / pelvis 07/06: No acute abdominopelvic pathology appreciated. Diverticulosis without acute diverticulitis. Hepatosteatosis. Small fat containing right inguinal hernia. Femur XR 07/06: No acute fracture or dislocation. Humerus XR 07/06: No acute fracture or dislocation. Radius XR 07/06: No acute fracture or dislocation. Tib /fib XR 07/06: No acute fracture or dislocation. Assessment and plan: s/p Acute metabolic encephalopathy - possibly 2/2 hyponatremia - Patient currently appears to be oriented to person, place and time - Can answer question appropriately - No focal deficits - Imaging noted above Hyponatremia - possibly 2/2 beer potomania - Patient's sodium has been slowly improving appropriately - Patient has received hypertonic saline - Fluid management as per nephrology - Nephrology on consultation; we appreciate their input s/p Hypokalemia s/p Rhabdomyolysis - CK levels improving - c/w fluids Alcohol abuse with alcoholic hepatitis - Continue with thiamine, folate, multivitamins - Continue with Cipro protocol with Ativan - Will check liver profile / PT ... will calculate DF Depression / PTSD - Patient was previously on Wellbutrin, however, has stopped the use of this GI prophylaxis - c/w Protonix DVT prophylaxis - c/w Lovenox Disposition: - Awaiting clinical improvement - Will start PT today VS,Fishbone, I+O VS, Fishbone, I+O Laboratory Tests 07/07/20 12:05 07/07/20 16:10 07/07/20 20:08 07/07/20 23:58 07/08/20 04:50 Vital Signs Date Time Temp Pulse Resp B/P (MAP) Pulse Ox O2 Delivery O2 Flow Rate FiO2 07/08/20 05:25 18 07/08/20 04:55 Nasal Cannula 2.0 07/08/20 04:00 97.3 78 109/60 (76) 99 I&O- Last 24 Hours up to 6 AM 07/08/20 06:00 Intake Total 2790 ml Output Total 1300 ml Balance 1490 ml KENNETH ALCOCER MD July 08, 2020 08:34
[2020-07-08] MEDS: ONDANSETRON 4MG/2ML VIAL IV PRN ×2 (08:45→18:17)
[2020-07-08] MEDS: FOLIC ACID 1 MG TAB PO SCH (08:45)
[2020-07-08] MEDS: MORPHINE 2 MG/ML 1ML VIAL (J2270) IV PRN ×3 (08:45→21:00)
[2020-07-08] MEDS: ENOXAPARIN 40MG/0.4ML SYRINGE (J1650 PER 10MG) SC SCH (08:45)
[2020-07-08] MEDS: THIAMINE 100 MG TAB PO SCH ×2 (08:45→20:59)
[2020-07-08] MEDS: MULTIVITAMINS/MINERALS THERAP 1 TAB PO SCH (08:45)
[2020-07-08] MEDS: LIDOCAINE 2% JELLY 5ML TUBE TOP SCH ×2 (08:46→21:00)
[2020-07-08] MEDS: PANTOPRAZOLE 40MG VIAL (C9113 PER 1) IV SCH (08:46)
[2020-07-08 09:18] LABS: ALBUMIN 2.7 GM/DL (3.2-5.2); ALT/SGPT 158 U/L (12-78); BILIRUBIN,DIRECT < 0.1 MG/DL (0.0-0.2); BILIRUBIN,TOTAL 0.8 MG/DL (0.2-1.0); BLOOD UREA NITROGEN 9 MG/DL (7-18); CALCIUM LEVEL 8.6 MG/DL (8.8-10.2); CARBON DIOXIDE LEVEL 23 MEQ/L (21-32); CHLORIDE LEVEL 97 MEQ/L (98-107); CREATININE FOR GFR 0.51 MG/DL (0.55-1.30); GLOMERULAR FILTRATION RATE > 60.0 (>45); GLUCOSE, FASTING 85 MG/DL (70-100); POTASSIUM SERUM 4.5 MEQ/L (3.5-5.1); SODIUM LEVEL 126 MEQ/L (136-145); TOTAL PROTEIN 5.9 GM/DL (6.4-8.2)
[2020-07-08 12:00] VITALS: BP 123/60
[2020-07-08 12:27] LABS: INR 0.9; PROTHROMBIN TIME 12.3 SECONDS (12.5-14.3)
[2020-07-08 12:57] LABS: BLOOD UREA NITROGEN 9 MG/DL (7-18); CALCIUM LEVEL 7.6 MG/DL (8.8-10.2); CARBON DIOXIDE LEVEL 20 MEQ/L (21-32); CHLORIDE LEVEL 100 MEQ/L (98-107); CREATININE FOR GFR 0.49 MG/DL (0.55-1.30); GLOMERULAR FILTRATION RATE > 60.0 (>45); GLUCOSE, FASTING 76 MG/DL (70-100); SODIUM LEVEL 126 MEQ/L (136-145)
[2020-07-08 16:00] VITALS: BP 128/70
[2020-07-08] MEDS ORDERED: NS 1,000 ML IV SCH (17:05)
[2020-07-08] MEDS: DIAPER RELIEF PASTE (DESITIN) 60GM TOP PRN (17:46)
--- NOTE | 2020-07-08 18:21 | IPN ---
NEPHROLOGY PROGRESS NOTE DATE: 07/08/2020 SUBJECTIVE: The patient is seen and examined this morning at the bedside in the Intensive Care Unit. Her serum sodium has come up appropriately over the past 48 hours. Her sodium has corrected by 16 mEq, giving a rate of around 8 mEq per day. Her normal saline was stopped yesterday evening and she was given d5w to slow down the rate of correction. The patient denies any complaints. Reports her pain is adequately controlled. Denies any shortness of breath, vomiting or diarrhea. She has a Palomino catheter. She asks that some of her home medications be restarted (Wellbutrin). OBJECTIVE: PHYSICAL EXAMINATION: VITAL SIGNS: Temperature 98.4, pulse 78, respiratory rate 18, blood pressure 128/70, saturating 99% on room air. INTAKE AND OUTPUT: Intake yesterday was 3 liters. Urine output was 1.3 liters. Weight in the bed scale is 75.2 kg. GENERAL APPEARANCE: The patient is seen lying in bed. Head of the bed elevated. Awake, alert, comfortable, oriented x3, in no distress. HEENT: The extraocular muscles are intact. Tongue is moist. NECK: Supple. Jugular veins are not elevated. HEART: Regular, S1, S2. There is no pitting edema. LUNGS: Symmetric air entry, clear to auscultation. No crackles or rales. ABDOMEN: Soft and nontender. There are bowel sounds. GENITOURINARY: Palomino catheter. EXTREMITIES: Negative for edema but there are significant abrasions and bruising all across her knees, legs, elbows and chin. NEUROLOGICAL: She is oriented x3, cooperative with the physical exam and appears to be at baseline mentation. LABORATORY STUDIES: Sodium of 110 on admission on July 06 at 10:00 a.m. and corrected by 12 points by the morning of July 07 and has corrected by an additional 4 points by the morning of July 08, up to 126 today for a total correction of 16 mEq in 48 hours. Potassium 4.0, bicarbonate 20, creatinine 0.4, elevated AST and ALT 125 and 158 respectively. Albumin 2.7, hemoglobin 12.6. CURRENT INPATIENT MEDICATIONS: Normal saline was stopped yesterday evening as the patient was started on d5w at 70 mL an hour for a total of 500 mL and this evening I am putting her back now on normal saline at 40 mL an hour. Her pain medications were adjusted by the Primary Team. The remainder of medications are unchanged as compared to yesterday. PROBLEMS: 1. Hyposmolar hyponatremia - The patient initially was admitted with sodium of 110 and symptomatic and was given hypertonic saline. Her sodium corrected by 12 mEq in the first 24 hours. Subsequently she was given d5w along as well to slow down the rate of correction and in the second 24-hour period, she has come up by another 4 mEq. So in total now since admission over 48 hours she has corrected by 16 mEq which I feel is appropriate rate of correction and the patient's sodium level is 126 on the latest labs and this evening I am putting her on normal saline at 40 mL an hour as her sodium has now plateaued for the last several lab draws and we will check her sodium level less frequently now given the improvement in her hyponatremia overall. 2. Acute metabolic encephalopathy - likely secondary to severe hyponatremia, and I found the patient to be mentating appropriately today without any deficits noted, and her sodium level has nicely improved. Her antidepressants remain on hold at this time. 3. Mild rhabdomyolysis - creatinine kinase level has downtrended nicely but her LFTs are still elevated and she is on a low rate of IV fluid at this time, and Primary Service is working her up for alcoholic hepatitis.
[2020-07-08 20:00] VITALS: BP 100/61
[2020-07-08 20:40] LABS: BLOOD UREA NITROGEN 9 MG/DL (7-18); CALCIUM LEVEL 8.2 MG/DL (8.8-10.2); CARBON DIOXIDE LEVEL 24 MEQ/L (21-32); CHLORIDE LEVEL 101 MEQ/L (98-107); CREATININE FOR GFR 0.54 MG/DL (0.55-1.30); GLOMERULAR FILTRATION RATE > 60.0 (>45); GLUCOSE, FASTING 112 MG/DL (70-100); POTASSIUM SERUM 3.6 MEQ/L (3.5-5.1); SODIUM LEVEL 130 MEQ/L (136-145)
[2020-07-09] VITALS: BP 123/60
[2020-07-09] MEDS: PERCOCET 5MG/325MG TAB PO PRN ×5 (01:08→23:52)
[2020-07-09] MEDS: MORPHINE 2 MG/ML 1ML VIAL (J2270) IV PRN (02:03)
[2020-07-09] MEDS: DIAPER RELIEF PASTE (DESITIN) 60GM TOP PRN ×2 (02:27→23:16)
[2020-07-09 04:00] VITALS: BP 127/65
[2020-07-09 05:42] LABS: HEMOGLOBIN 11.9 g/dl (12.0-15.5); MEAN CORPUSCULAR HEMOGLOBIN 32.2 pg (27.0-33.0); MEAN CORPUSCULAR VOLUME 91.9 fl (80.0-96.0); PLATELET COUNT, AUTOMATED 208 10^3/uL (150-450); WHITE BLOOD COUNT 10.7 10^3/uL (4.0-10.0)
[2020-07-09] MEDS: ONDANSETRON 4MG/2ML VIAL IV PRN (06:40)
[2020-07-09] MEDS: PANTOPRAZOLE 40MG VIAL (C9113 PER 1) IV SCH (08:08)
[2020-07-09] MEDS: ENOXAPARIN 40MG/0.4ML SYRINGE (J1650 PER 10MG) SC SCH (08:08)
[2020-07-09] MEDS: MULTIVITAMINS/MINERALS THERAP 1 TAB PO SCH (08:09)
[2020-07-09] MEDS: FOLIC ACID 1 MG TAB PO SCH (08:09)
[2020-07-09] MEDS: buPROPion **XL** TABLET 150MG (WELLBUTRIN XL) PO SCH (08:10)
[2020-07-09] MEDS: THIAMINE 100 MG TAB PO SCH (08:10)
[2020-07-09] MEDS: LIDOCAINE 2% JELLY 5ML TUBE TOP SCH ×2 (09:00→23:16)
[2020-07-09 11:03] LABS: ALBUMIN 2.6 GM/DL (3.2-5.2); ALT/SGPT 130 U/L (12-78); BILIRUBIN,TOTAL 0.4 MG/DL (0.2-1.0); BLOOD UREA NITROGEN 9 MG/DL (7-18); CALCIUM LEVEL 8.6 MG/DL (8.8-10.2); CARBON DIOXIDE LEVEL 29 MEQ/L (21-32); CHLORIDE LEVEL 99 MEQ/L (98-107); CREATININE FOR GFR 0.45 MG/DL (0.55-1.30); GLOMERULAR FILTRATION RATE > 60.0 (>45); GLUCOSE, FASTING 109 MG/DL (70-100); POTASSIUM SERUM 4.2 MEQ/L (3.5-5.1); SODIUM LEVEL 132 MEQ/L (136-145); TOTAL PROTEIN 4.8 GM/DL (6.4-8.2)
[2020-07-09] MEDS ORDERED: SLF 3 ML SYR IV PRN (11:10)
[2020-07-09 12:00] VITALS: BP 114/57
--- NOTE | 2020-07-09 13:32 | IPNPDOC ---
Text Note Date of Service The patient was seen on 07/09/20. NOTE Subjective: Patient is a 59-year-old female with a PMHx of Alcohol abuse, Depression, PTSD , who presented to the emergency room after experiencing 3 week s of binge drinking found at home on the floor. Patient reported falling multiple times with bruising across her body as well as abrasions across her knees and elbows. Upon arrival to emergency room, patient was found to be hyponatremic and was admitted to the hospital service for further evaluation and treatment. Nephrology was called on consultation. Patient was seen and examined at the bedside. Patient was that she has had an uneventful night. Denies any chest pain, shortness breath or palpitations. Has not experience any nausea, vomiting, abdominal pain or diarrhea. Patient has been advised that she should continue working with physical therapy to help increase her strength. We will continue with the current pain regimen as ordered. Objective: Vitals (See below) General: Patient appears to be sitting up in bed, appears to become from on any acute distress, is oriented to person, place and time HEENT: NC, AT CVS: +S1S2 Lungs: There is fair air entry bilaterally without evidence of wheezing, crackles, rhonchi Abdomen: Abdomen remains soft without any distention or tenderness Extremities: No evidence of lower extremity edema, - Calf tenderness Skin: Skin with area of multiple abrasions on knees, elbows, thighs, calves Imaging: CT head 07/06: Age related atrophy and microvascular ischemic changes similar to prior examination. No acute intracranial hemorrhage, infarction, or mass/mass effect. CXR 07/06: No acute cardiopulmonary process appreciated. Chest CT 07/06: 1. Very minimal ground-glass opacities in the left lung as described above are nonspecific. 2. No consolidation, effusion or acute mediastinal/pleuroparenchymal process appreciated. CT Cervical Spine 07/06: Advanced multilevel degenerative spondylosis relatively stable as compared through 2019. No acute fracture/compression injury or subluxation. CT abdomen / pelvis 07/06: No acute abdominopelvic pathology appreciated. Diverticulosis without acute diverticulitis. Hepatosteatosis. Small fat containing right inguinal hernia. Femur XR 07/06: No acute fracture or dislocation. Humerus XR 07/06: No acute fracture or dislocation. Radius XR 07/06: No acute fracture or dislocation. Tib /fib XR 07/06: No acute fracture or dislocation. Assessment and plan: s/p Acute metabolic encephalopathy - possibly 2/2 hyponatremia - Patient currently appears to be oriented to person, place and time - Can answer question appropriately - No focal deficits - Imaging noted above Hyponatremia - possibly 2/2 beer potomania - Patient's sodium has been slowly improving appropriately - s/p hypertonic saline - Fluid management as per nephrology - Nephrology on consultation; we appreciate their input s/p Hypokalemia s/p Rhabdomyolysis - CK levels improving - c/w fluids Alcohol abuse with alcoholic hepatitis - Liver function has been improving - s/p CIWA with Ativan - c/w thiamine, folate, multivitamins Depression / PTSD - Patient was previously on Wellbutrin, however, has stopped the use of this GI prophylaxis - c/w Protonix DVT prophylaxis - c/w Lovenox Disposition: - Awaiting clinical improvement - c/w PT and OT VS,Fishbone, I+O VS, Fishbone, I+O Laboratory Tests 07/08/20 19:54 07/09/20 05:02 07/09/20 10:22 Vital Signs Date Time Temp Pulse Resp B/P (MAP) Pulse Ox O2 Delivery O2 Flow Rate FiO2 07/09/20 12:00 97.6 80 18 114/57 (76) 94 Room Air 07/08/20 18:18 2.0 I&O- Last 24 Hours up to 6 AM 07/09/20 06:00 Intake Total 1630 ml Output Total 1550 ml Balance 80 ml KENNETH ALCOCER MD July 09, 2020 13:32
[2020-07-09] MEDS: SLF 3 ML SYR IV SCH ×2 (13:43→22:14)
[2020-07-09] MEDS ORDERED: MOM 30ML SUSPENSION UDC PO PRN (16:15)
[2020-07-09] MEDS: SENOKOT S TAB PO PRN (17:24)
[2020-07-09 19:10] VITALS: BP 105/53
[2020-07-09] MEDS: RAMELTEON 8 MG TAB (ROZEREM) PO SCH (20:53)
[2020-07-10] VITALS: BP 138/66
[2020-07-10] MEDS: SLF 3 ML SYR IV SCH ×3 (05:28→20:06)
[2020-07-10] MEDS: PERCOCET 5MG/325MG TAB PO PRN ×3 (05:39→20:02)
[2020-07-10 06:01] LABS: HEMATOCRIT 34.2 % (36.0-47.0); MEAN CORPUSCULAR HEMOGLOBIN 32.4 pg (27.0-33.0); MEAN CORPUSCULAR HGB CONC 35.1 g/dl (32.0-36.5); MEAN CORPUSCULAR VOLUME 92.4 fl (80.0-96.0); PLATELET COUNT, AUTOMATED 218 10^3/uL (150-450); WHITE BLOOD COUNT 15.6 10^3/uL (4.0-10.0)
[2020-07-10 06:23] LABS: ALBUMIN 2.4 GM/DL (3.2-5.2); ALT/SGPT 110 U/L (12-78); BILIRUBIN,TOTAL 0.4 MG/DL (0.2-1.0); BLOOD UREA NITROGEN 8 MG/DL (7-18); CALCIUM LEVEL 8.4 MG/DL (8.8-10.2); CARBON DIOXIDE LEVEL 28 MEQ/L (21-32); CHLORIDE LEVEL 99 MEQ/L (98-107); CREATININE FOR GFR 0.43 MG/DL (0.55-1.30); GLOMERULAR FILTRATION RATE > 60.0 (>45); GLUCOSE, FASTING 101 MG/DL (70-100); POTASSIUM SERUM 3.8 MEQ/L (3.5-5.1); SODIUM LEVEL 132 MEQ/L (136-145); TOTAL PROTEIN 5.2 GM/DL (6.4-8.2)
[2020-07-10 07:17] VITALS: BP 124/56
[2020-07-10] MEDS: LIDOCAINE 2% JELLY 5ML TUBE TOP SCH ×2 (09:00→20:01)
[2020-07-10] MEDS: SODIUM CHLORIDE 1 GM TAB PO SCH ×3 (09:00→20:00)
[2020-07-10] MEDS ORDERED: PANTOPRAZOLE 40MG TAB (PROTONIX) PO SCH (09:00)
[2020-07-10] MEDS: PANTOPRAZOLE 40MG VIAL (C9113 PER 1) IV SCH (09:00)
--- NOTE | 2020-07-10 09:04 | REP ---
INDICATION: WBC elevation. COMPARISON: Comparison chest x-ray July 06, 2020. TECHNIQUE: Portable upright AP chest radiograph. FINDINGS: There is linear platelike atelectasis in the right base overlying the right hemidiaphragm. There is a small pleural based soft tissue opacity in the left perihilar region. 1.3 cm in diameter. This was not apparent on July 06, 2020 or December 22, 2018 prior study. This may be a small acute infiltrate. There is a old rib fracture on the right affecting the 6th posterolateral rib. Heart is not enlarged. Aorta is somewhat tortuous.. IMPRESSION: Subtle peripheral nodular density or infiltrate left perihilar region. Platelike atelectasis right base. Lung page otherwise appear clear.. <Electronically signed by Willie Ramos > 07/10/20 0939
[2020-07-10] MEDS: MULTIVITAMINS/MINERALS THERAP 1 TAB PO SCH (09:15)
[2020-07-10] MEDS: SENOKOT S TAB PO PRN ×2 (09:15→20:06)
[2020-07-10] MEDS: buPROPion **XL** TABLET 150MG (WELLBUTRIN XL) PO SCH (09:15)
[2020-07-10] MEDS: FOLIC ACID 1 MG TAB PO SCH (09:15)
[2020-07-10] MEDS: ENOXAPARIN 40MG/0.4ML SYRINGE (J1650 PER 10MG) SC SCH (09:15)
--- NOTE | 2020-07-10 10:55 | IPNPDOC ---
Text Note Date of Service The patient was seen on 07/10/20. NOTE Subjective: Patient is a 59-year-old female with a PMHx of Alcohol abuse, Depression, PTSD , who presented to the emergency room after experiencing 3 week s of binge drinking found at home on the floor. Patient reported falling multiple times with bruising across her body as well as abrasions across her knees and elbows. Upon arrival to emergency room, patient was found to be hyponatremic and was admitted to the hospital service for further evaluation and treatment. Nephrology was called on consultation. Patient was seen and examined at the bedside. Patient has denied any CP, SOB or palpitations, Denies any N/V or abdominal pain. Reports some urinary discomfort. Objective: Vitals (See below) General: Laying in bed, appears comfortable, not in any acute distress, is awake, alert and oriented to person, place and time HEENT: NC, AT CVS: +S1S2 Lungs: There is fair air entry bilaterally without evidence of wheezing, crackles, rhonchi Abdomen: Abdomen remains soft without any appreciated tenderness or distention Extremities: Lower extremities do not reveal any pitting edema Skin: Excoriation of skin around medial thighs bilaterally and gluteal cleft as well as sacrum have had significant improvement Imaging: CT head 07/06: Age related atrophy and microvascular ischemic changes similar to prior examination. No acute intracranial hemorrhage, infarction, or mass/mass effect. CXR 07/06: No acute cardiopulmonary process appreciated. Chest CT 07/06: 1. Very minimal ground-glass opacities in the left lung as described above are nonspecific. 2. No consolidation, effusion or acute mediastinal/pleuroparenchymal process appreciated. CT Cervical Spine 07/06: Advanced multilevel degenerative spondylosis relatively stable as compared through 2019. No acute fracture/compression injury or subluxation. CT abdomen / pelvis 07/06: No acute abdominopelvic pathology appreciated. Diverticulosis without acute diverticulitis. Hepatosteatosis. Small fat containing right inguinal hernia. Femur XR 07/06: No acute fracture or dislocation. Humerus XR 07/06: No acute fracture or dislocation. Radius XR 07/06: No acute fracture or dislocation. Tib /fib XR 07/06: No acute fracture or dislocation. Assessment and plan: s/p Acute metabolic encephalopathy - possibly 2/2 hyponatremia - Patient currently appears to be oriented to person, place and time - Can answer question appropriately - No focal deficits - Imaging noted above Leukocytosis - She is hemodynamically stable and afebrile - Repeat urine analysis is consistent with infection. Urine cultures pending - CXR unrevealing - Will check blood cultures - Will check US of L AC area given possibility of thrombophlebitis - Will check MRSA screen - Will start patient on Augmentin for suspected UTI, given her slight discomfort with urination Skin breakdown - Currently patient skin appears to be improving - No evidence of cellulitis/infection of her wounds over her medial thighs/gluteal cleft - c/w dressing changes as ordered - Will decrease frequency of Percocet; Will transition to Tramadol by tonight Hyponatremia - possibly 2/2 beer potomania - Sodium has been trending toward normal - s/p hypertonic saline - Fluid management as per nephrology - Nephrology on consultation; we appreciate their input s/p Hypokalemia s/p Rhabdomyolysis - CK levels improving - c/w fluids Alcohol abuse with alcoholic hepatitis - Liver function has been improving - s/p CIWA with Ativan - c/w thiamine, folate, multivitamins Depression / PTSD - Patient was previously on Wellbutrin, however, has stopped the use of this GI prophylaxis - c/w Protonix DVT prophylaxis - c/w Lovenox Disposition: - Awaiting clinical improvement - c/w PT and OT VS,Fishbone, I+O VS, Fishbone, I+O Laboratory Tests 07/10/20 05:45 Vital Signs Date Time Temp Pulse Resp B/P (MAP) Pulse Ox O2 Delivery O2 Flow Rate FiO2 07/10/20 07:17 97.8 88 18 124/56 (78) 95 Room Air 07/08/20 18:18 2.0 I&O- Last 24 Hours up to 6 AM 07/10/20 06:00 Intake Total 2220 ml Output Total 900 ml Balance 1320 ml KENNETH ALCOCER MD July 10, 2020 10:55
[2020-07-10] MEDS ORDERED: FOLI1TAB11 PO (11:33)
[2020-07-10] MEDS ORDERED: PANT40TA29 PO (11:33)
[2020-07-10] MEDS ORDERED: PERCOCET PO (11:33)
[2020-07-10] MEDS ORDERED: RAME8TAB2 PO (11:33)
[2020-07-10] MEDS ORDERED: VITMTA PO (11:33)
[2020-07-10] MEDS ORDERED: BUPR300T92 PO (11:33)
[2020-07-10] MEDS ORDERED: AMOX875T2 PO (11:33)
[2020-07-10] MEDS: AUGMENTIN 875 MG TAB PO SCH ×2 (13:20→20:00)
--- NOTE | 2020-07-10 14:14 | IPN ---
INPATIENT PROGRESS NOTE DATE: 07/09/2020 SUBJECTIVE: Patient is seen and examined this morning at the bedside. Her serum sodium has come up to 132 this morning. She reports good appetite and denies any complaints except for pain in the perineal area where she has a rash and erythema. PHYSICAL EXAMINATION: Vital signs: Temperature 97.6, pulse 80, respiratory rate 18, blood pressure 114/57, saturating 94-95% on room air. Intake yesterday was 1980, urine output yesterday was 900. Weight on the bed scale today is 74.8 kg. General: Patient is seen lying in bed comfortable, awake, alert, oriented, in no distress. HEENT: Extraocular muscles are intact. Tongue is moist. Neck: Supple. Jugular veins are not elevated. Heart sounds: Regular S1 and S2. Lungs: Symmetric air entry, no crackle or rale. Abdomen: Soft and nontender. Genitourinary: Indwelling Palomino catheter and there is also significant rash in her perineal area diffusely and she is receiving Desitin cream. Extremities: Negative for edema, but there are multiple bruises and abrasions on her knees, thighs, arms and chin. Neurologic: She is oriented times 3, conversational, cooperative with physical exam and no deficits are appreciated. LABORATORY DATA: Today's labs show sodium 132, potassium 4.2, bicarbonate 29, creatinine 0.4. AST 79, ALT 130. Albumin 2.6. Hemoglobin 11.9. INPATIENT MEDICATIONS: Reviewed by myself. She was resumed on Wellbutrin 150 mg by mouth daily today. She was also started on senokot p.r.n. Her remainder of medications are unchanged as compared to yesterday. PROBLEMS/PLAN: 1. Hypoosmolar hyponatremia: Patient was admitted with a sodium of 110 and she was symptomatic. She was initially given hypertonic saline. She corrected by 12 mEq in the first 24 hours. Subsequently she was given D5W to slow down the rate of correction and she has been off of I.V. fluids now since yesterday evening. She is having good oral intake. She is on a regular diet and she can add salt to her food. There is no need for I.V. fluid. I expect her serum sodium will continue to improve. It is up to 132 today and sodium level will only be checked once daily now. 2. Status post acute metabolic encephalopathy secondary to hyponatremia: Her sodium levels have corrected appropriately over the past 3 days and are near normal now. Her mentation has improved. She also has a history of alcohol abuse.
[2020-07-10 15:55] VITALS: BP 116/59
[2020-07-10 20:00] VITALS: BP 130/66
[2020-07-10] MEDS: RAMELTEON 8 MG TAB (ROZEREM) PO SCH (20:00)
[2020-07-11] MEDS: PERCOCET 5MG/325MG TAB PO PRN (01:50)
[2020-07-11 04:00] VITALS: BP 127/60
[2020-07-11] MEDS: SLF 3 ML SYR IV SCH (05:32)
[2020-07-11 06:11] LABS: HEMATOCRIT 33.2 % (36.0-47.0); HEMOGLOBIN 11.2 g/dl (12.0-15.5); MEAN CORPUSCULAR HEMOGLOBIN 32.1 pg (27.0-33.0); MEAN CORPUSCULAR HGB CONC 33.7 g/dl (32.0-36.5); MEAN CORPUSCULAR VOLUME 95.1 fl (80.0-96.0); PLATELET COUNT, AUTOMATED 241 10^3/uL (150-450); RED BLOOD COUNT 3.49 10^6/uL (4.00-5.40); WHITE BLOOD COUNT 10.5 10^3/uL (4.0-10.0)
[2020-07-11 06:39] LABS: BLOOD UREA NITROGEN 8 MG/DL (7-18); CALCIUM LEVEL 8.3 MG/DL (8.8-10.2); CARBON DIOXIDE LEVEL 32 MEQ/L (21-32); CHLORIDE LEVEL 99 MEQ/L (98-107); GLOMERULAR FILTRATION RATE > 60.0 (>45); GLUCOSE, FASTING 102 MG/DL (70-100); POTASSIUM SERUM 3.9 MEQ/L (3.5-5.1); SODIUM LEVEL 135 MEQ/L (136-145)
[2020-07-11 06:40] LABS: ALBUMIN 2.3 GM/DL (3.2-5.2); ALT/SGPT 92 U/L (12-78); BILIRUBIN,TOTAL 0.4 MG/DL (0.2-1.0); TOTAL PROTEIN 4.7 GM/DL (6.4-8.2)
[2020-07-11] MEDS ORDERED: traMADol 50 MG TAB PO PRN (06:55)
[2020-07-11 07:54] VITALS: BP 132/63
--- NOTE | 2020-07-11 08:14 | IPN ---
PROGRESS NOTE DATE: 07/10/2020 SUBJECTIVE: The patient is seen and examined this morning at the bedside. Her complaint to me is similar as to her complaint yesterday. Mainly, she is requesting more pain medications and complaining that her pain is not adequately controlled (the rash in the perineal area). She has been noted to be resting comfortably throughout the day though. Her serum sodium has stalled at 132. OBJECTIVE: VITAL SIGNS: Temperature 98.4, pulse 70, respiratory rate 18, blood pressure 116/59, saturating 94% on room air. INTAKE AND OUTPUT: Intake yesterday was 2.1 L and urine output was 1250. Weight on the bed scale today was 75.5 kg. GENERAL: The patient was seen lying in bed resting comfortably in no distress; although as soon as I walked into the room, she started complaining of pain. HEENT: Extraocular muscles are intact. Tongue is moist. NECK: Supple. HEART: Sounds are regular. S1, S2. There is no pitting edema. LUNGS: Show symmetric air entry. No crackle or rale. ABDOMEN: Soft and nontender. EXTREMITIES: Show healing abrasions and also diffuse bruising on the legs and on the arms, but there is no edema, clubbing, or cyanosis. NEUROLOGIC: She is oriented x3. Interactive and conversational. LABORATORY DATA: White count 15.6, hemoglobin 12.0, platelets 218,000. Sodium 132, potassium 3.8, bicarbonate 28, BUN 8, creatinine 0.4. Microbiology: Blood cultures drawn today are pending. Blood cultures from 07/06 show no growth for 72 hours x2 sets. Urine culture is pending as well. IMAGING DATA: Chest x-ray today shows possible small acute infiltrate in the left perihilar region. Otherwise, clear lung page. INPATIENT MEDICATIONS: She was started on Augmentin 875 mg p.o. twice daily. I put her on sodium chloride 1 gram tablet three times a day. Her pain medications were adjusted by the primary team. She is also now on Protonix 40 mg p.o. daily instead of IV formulation. Remainder of medications are unchanged as compared to yesterday. PROBLEMS: 1. Hypoosmolar hyponatremia. Serum sodium has come up from 110 to 132; however, it has stalled at 132 for the past two days. I have prescribed sodium chloride tablet 1 gram three times a day. She is on a regular diet and she can also add salt to her food. There is no need for IV fluid at this time. Her sodium levels are only going to be checked once daily and I expect her sodium will improve with the salt tablet. 2. Leukocytosis. Repeat blood cultures were sent and pending. Prior set of blood cultures were negative. Urinalysis done today shows WBCs and bacteria. Her Palomino catheter has already been removed. A urine culture is pending. Chest x-ray showed possible small acute left perihilar infiltrate. She was started on Augmentin by the primary team. She has no respiratory symptoms. 3. Alcohol abuse with alcoholic hepatitis. Her LFTs continue to improve.
--- NOTE | 2020-07-11 12:46 | DS.PDOC ---
Discharge Summary General Date of Admission July 06, 2020 at 11:57 Date of Discharge 07/11/2020 Discharge Summary PROCEDURES PERFORMED DURING STAY: [None]. ADMITTING DIAGNOSES / DISCHARGE DIAGNOSES: s/p Acute metabolic encephalopathy - possibly 2/2 hyponatremia Leukocytosis Skin breakdown Hyponatremia - possibly 2/2 beer potomania s/p Hypokalemia s/p Rhabdomyolysis Alcohol abuse with alcoholic hepatitis Depression / PTSD GI prophylaxis DVT prophylaxis COMPLICATIONS/CHIEF COMPLAINT: Confusion / Found down / Hyponatremia / Rhabdomyolysis HISTORY OF PRESENT ILLNESS: Patient is a 59-year-old female with a PMHx of Alcohol abuse, Depression, PTSD , who presented to the emergency room after experiencing 3 weeks of binge drinking found at home on the floor. Patient reported falling multiple times with bruising across her body as well as abrasions across her knees and elbows. Upon arrival to emergency room, patient was found to be hyponatremic and was admitted to the hospital service for further evaluation and treatment. Nephrology was called on consultation. This morning patient had reported that she wanted to leave AGAINST MEDICAL ADVICE. She did not want any further imaging of her arm or any workup for infection. She reported that she does not think chest. She has a blood clot nor does she think that she needs antibiotics for an infection. Patient has signed AMA paperwork and has left. Patient is instructed to follow-up with her primary care provider or return to the emergency room if she changes her mind. HOSPITAL COURSE: s/p Acute metabolic encephalopathy - possibly 2/2 hyponatremia - Patient is fully oriented to person, place and time - No focal deficits on exam - Imaging noted above - Has been working with physical therapy Leukocytosis - Improving - Hemodynamically stable and afebrile - Physical with areas of induration, redness, warmth and mild drainage around her left antecubital site - UA consistent with urinary tract infection. Urine cultures pending - CXR unrevealing - Blood cultures 07/06: No growth at 5 days - Blood cultures 07/10: No growth in 24 hours - Patient has refused getting an US of L antecubital area given possibility of thrombophlebitis - c/w Augmentin for suspected UTI on discharge Skin breakdown - Currently patient skin appears to be improving - No evidence of cellulitis/infection of her wounds over her medial thighs/gluteal cleft - c/w dressing changes as ordered - s/p Percocet; Was started on Tramadol today - but will be discharged with Tylenol PRN only Hyponatremia - possibly 2/2 beer potomania - Sodium has essentially returned back to baseline - s/p hypertonic saline - Nephrology on consultation; we appreciate their input s/p Hypokalemia s/p Rhabdomyolysis - CK levels improving Alcohol abuse with alcoholic hepatitis - Liver function has been improving - s/p CIWA with Ativan - c/w thiamine, folate, multivitamins - Patient has been advised to abstain from alcohol use completely Depression / PTSD - Patient was previously on Wellbutrin, however, has stopped the use of this GI prophylaxis - c/w Protonix DVT prophylaxis - c/w Lovenox DISCHARGE MEDICATIONS: Please see below. ALLERGIES: Please see below. PHYSICAL EXAMINATION ON DISCHARGE: Vitals (See below) General: Patient was laying in bed, did not appear to be in any acute distress, was comfortable, awake, alert, oriented to person, place and time HEENT: NC, AT CVS: +S1S2 Lungs: There is fair air entry bilaterally without evidence of wheezing, crackles or rhonchi on auscultation Abdomen: Soft without distention or tenderness Extremities: No evidence of edema of lower extremities Skin: Excoriated skin around medial aspects of by legs extending through) human to her gluteal cleft LABORATORY DATA: Please see below. IMAGING: CT head 07/06: Age related atrophy and microvascular ischemic changes similar to prior examination. No acute intracranial hemorrhage, infarction, or mass/mass effect. CXR 07/06: No acute cardiopulmonary process appreciated. Chest CT 07/06: 1. Very minimal ground-glass opacities in the left lung as described above are nonspecific. 2. No consolidation, effusion or acute mediastinal/pleuroparenchymal process appreciated. CT Cervical Spine 07/06: Advanced multilevel degenerative spondylosis relatively stable as compared through 2019. No acute fracture/compression injury or subluxation. CT abdomen / pelvis 07/06: No acute abdominopelvic pathology appreciated. Diverticulosis without acute diverticulitis. Hepatosteatosis. Small fat containing right inguinal hernia. Femur XR 07/06: No acute fracture or dislocation. Humerus XR 07/06: No acute fracture or dislocation. Radius XR 07/06: No acute fracture or dislocation. Tib /fib XR 07/06: No acute fracture or dislocation. ACTIVITY: [As tolerated]. DISCHARGE PLAN: Follow-up with primary care provider and Nephrology within the next 7 days DISPOSITION: 07 Against Medical Advice. TIME SPENT ON DISCHARGE: 35 minutes. Vital Signs/I&Os Vital Signs Date Time Temp Pulse Resp B/P (MAP) Pulse Ox O2 Delivery O2 Flow Rate FiO2 07/11/20 07:54 97.4 90 18 132/63 (86) 94 Room Air 07/08/20 18:18 2.0 I&O- Last 24 Hours up to 6 AM 07/11/20 06:00 Intake Total 1460 ml Output Total 325 ml Balance 1135 ml Laboratory Data Labs 24H Laboratory Tests 2 07/11/20 05:39: Nucleated Red Blood Cells % (auto) 0.0, Anion Gap 4L, Glomerular Filtration Rate > 60.0, Calcium Level 8.3L, Total Bilirubin 0.4, Aspartate Amino Transf (AST/SGOT) 38H, Alanine Aminotransferase (ALT/SGPT) 92H, Alkaline Phosphatase 88, Total Protein 4.7L, Albumin 2.3L, Albumin/Globulin Ratio 1.0L CBC/BMP Laboratory Tests 07/11/20 05:39 Microbiology Microbiology 07/10/20 Blood Culture - Preliminary, Resulted No growth after 24 hours . All specim... 07/10/20 Blood Culture - Preliminary, Resulted No growth after 24 hours . All specim... 07/10/20 Urine Culture, Received Pending 07/06/20 Blood Culture - Preliminary, Resulted No Growth after 72 hours. All specime... 07/06/20 Blood Culture - Final, Complete NO GROWTH AFTER 5 DAYS Discharge Medications Scheduled Amoxicillin/Potassium Clav (Amox-Clav 875-125 mg Tablet) 1 Each Tablet, 875 MG PO BID Bupropion HCl (Bupropion Xl) 300 Mg Tab.er.24h, 150 MG PO DAILY Calcium Carbonate/Vitamin D3 (Oyster Shell 500-Vit D3 200 Tb) 1 Each Tablet, 1 TAB PO DAILY, (Reported) Conjugated Estrogens (Premarin) 30 Gm Cream.appl, 0.5 GM PV 2XW, (Reported) Estrogen,Con/M-Progest Acet (Prempro 0.3 mg-1.5 mg Tablet) 1 Each Tablet, 1 TAB PO DAILY, (Reported) Folic Acid (Folic Acid) 1 Mg Tablet, 1 MG PO DAILY Multivitamins (Thera M Plus Tablet) 1 Each Tablet, 1 TAB PO DAILY Pantoprazole Sodium (Pantoprazole Sodium) 40 Mg Tablet.dr, 40 MG PO DAILY Allergies Coded Allergies: No Known Allergies (Unverified , 10/18/17) KENNETH ALCOCER MD July 11, 2020 12:46
== END 2020-07-11 08:49 | disposition left against medical advice (07) | DRG 71 ==
LOC: M ED 09:57 → EDBD 09:57 → M ED INP 11:57 → M ICU 14:17 → M PCU 07-08 19:36
PROVIDERS: ADMIT Neuromusculoskeletal Medicine & OMM; ATTEND Internal Medicine
DX: G93.41 Metabolic encephalopathy (principal); M62.82 Rhabdomyolysis; E87.1 Hypo-osmolality and hyponatremia; F10.188 Alcohol abuse with other alcohol-induced disorder; K70.10 Alcoholic hepatitis without ascites; F32.9 Major depressive disorder, single episode, unspecified; F43.10 Post-traumatic stress disorder, unspecified; F17.200 Nicotine dependence, unspecified, uncomplicated; Z79.899 Other long term (current) drug therapy; E87.6 Hypokalemia; R29.6 Repeated falls

== ENCOUNTER → 2021-04-18 | Outpatient (CLI) | payer OTHER, MEDICAID ==
[~2021-04-18] MED LIST changes: +AMOX875T2 PO; +BUPR300T92 PO; +DISU1TAB6 PO; -DISU250T PO; +ESTR62CR PV; +MED REC COMMENT; +OYST500T12 PO; +PANT40TA29 PO; +PERCOCET PO; +RAME8TAB2 PO; +ZOLP5TAB PO
== END ==
LOC: M WHC 10:50
PROVIDERS: ATTEND Obstetrics & Gynecology
DX: Z12.31 Encounter for screening mammogram for malignant neoplasm of breast (principal)

== ENCOUNTER → 2021-06-19 | Outpatient (CLI) | payer OTHER, MEDICAID ==
[2021-06-19 08:26] LABS: HEMATOCRIT 42.2 % (36.0-47.0); HEMOGLOBIN 14.5 g/dl (12.0-15.5); MEAN CORPUSCULAR HEMOGLOBIN 33.2 pg (27.0-33.0); MEAN CORPUSCULAR HGB CONC 34.4 g/dl (32.0-36.5); MEAN CORPUSCULAR VOLUME 96.6 fl (80.0-96.0); PLATELET COUNT, AUTOMATED 229 10^3/uL (150-450); RED BLOOD COUNT 4.37 10^6/uL (4.00-5.40)
[2021-06-19 09:05] LABS: ALBUMIN 3.7 GM/DL (3.2-5.2); ALT/SGPT 21 U/L (12-78); BILIRUBIN,TOTAL 0.4 MG/DL (0.2-1.0); BLOOD UREA NITROGEN 14 MG/DL (7-18); CALCIUM LEVEL 9.2 MG/DL (8.8-10.2); CARBON DIOXIDE LEVEL 24 MEQ/L (21-32); CHLORIDE LEVEL 109 MEQ/L (98-107); CHOLESTEROL LEVEL 198 MG/DL (<200); CHOLESTEROL RISK RATIO 2.538 (<5); GLOMERULAR FILTRATION RATE > 60.0 (>45); GLUCOSE, FASTING 82 MG/DL (70-100); HDL CHOLESTEROL 78 MG/DL (>40); LDL CHOLESTEROL 105 MG/DL (<100); NON-HDL-C 120 MG/DL; POTASSIUM SERUM 4.6 MEQ/L (3.5-5.1); SODIUM LEVEL 139 MEQ/L (136-145); TOTAL PROTEIN 6.6 GM/DL (6.4-8.2); TRIGLYCERIDES LEVEL 75 MG/DL (<150)
== END ==
LOC: M LAB 06:57
PROVIDERS: ATTEND Nurse Practitioner Family
DX: Z13.220 Encounter for screening for lipoid disorders (principal); Z13.29 Encounter for screening for other suspected endocrine disorder

== ENCOUNTER → 2022-06-22 | Outpatient (CLI) | payer OTHER, MEDICAID | LOC: M RAD 06:33 | PROVIDERS: ATTEND Student in an Organized Health Care Education/Training Program | DX: Z12.2 Encounter for screening for malignant neoplasm of respiratory organs (principal); Z87.891 Personal history of nicotine dependence; J47.9 Bronchiectasis, uncomplicated; J84.9 Interstitial pulmonary disease, unspecified ==

== ENCOUNTER 2022-09-14 14:11 | Emergency (ER) | payer OTHER, MEDICAID ==
[~2022-09-14] VITALS: Ht 162.6 cm; Wt 96.1 kg
[2022-09-14 17:41] VITALS: BP 154/79; TEMP 97.6; O2SAT 97
== END 2022-09-14 17:42 | disposition home or self-care (01) ==
LOC: M ED 14:11
DX: S86.111A Strain of other muscle(s) and tendon(s) of posterior muscle group at lower leg level, right leg, initial encounter (principal); F41.9 Anxiety disorder, unspecified; F32.A Depression, unspecified; F10.10 Alcohol abuse, uncomplicated; Z87.891 Personal history of nicotine dependence; Z79.899 Other long term (current) drug therapy

== ENCOUNTER → 2022-11-10 | Outpatient (CLI) | payer OTHER, MEDICAID ==
[2022-11-10 17:13] LABS: BASO # 0.1 10^3/uL (0.0-0.2); BASO % 0.5 % (0.0-1.0); EOS # 0.1 10^3/uL (0.0-0.5); EOS % 0.8 % (0.0-3.0); HEMATOCRIT 46.3 % (36.0-47.0); HEMOGLOBIN 14.6 g/dl (12.0-15.5); LYMPH # 3.4 10^3/uL (1.5-5.0); MEAN CORPUSCULAR HEMOGLOBIN 31.5 pg (27.0-33.0); MEAN CORPUSCULAR HGB CONC 31.5 g/dl (32.0-36.5); MEAN CORPUSCULAR VOLUME 99.8 fl (80.0-96.0); MONO # 0.9 10^3/uL (0.0-0.8); MONO % 7.4 % (2.0-8.0); NEUTROPHILS # 7.2 10^3/uL (1.5-8.5); NEUTROPHILS % 61.8 % (36.0-66.0); PLATELET COUNT, AUTOMATED 215 10^3/uL (150-450); RED BLOOD COUNT 4.64 10^6/uL (4.00-5.40); WHITE BLOOD COUNT 11.7 10^3/uL (4.0-10.0)
[2022-11-10 17:24] LABS: BLOOD UREA NITROGEN 20 MG/DL (9-23); CALCIUM LEVEL 9.3 MG/DL (8.3-10.6); CARBON DIOXIDE LEVEL 23 MMOL/L (20-31); CHLORIDE LEVEL 106 MMOL/L (98-107); CREATININE FOR GFR 0.84 MG/DL (0.55-1.30); GLOMERULAR FILTRATION RATE > 60.0 (>45); GLUCOSE, FASTING 94 MG/DL (74-106); POTASSIUM SERUM 4.5 MMOL/L (3.5-5.1); SODIUM LEVEL 138 MMOL/L (136-145)
== END ==
LOC: M LAB 16:27
PROVIDERS: ATTEND Internal Medicine Cardiovascular Disease
DX: R06.09 Other forms of dyspnea (principal)

== ENCOUNTER → 2023-01-14 | Outpatient (CLI) | payer OTHER, MEDICAID ==
[~2023-01-14] MED LIST changes: -DISU1TAB6 PO; +DISU1TAB7 PO
[2023-01-14 08:21] LABS: HEMOGLOBIN A1c 5.7 % (4.0-6.0)
[2023-01-14 08:33] LABS: ALBUMIN 3.7 G/DL (3.2-5.2); ALKALINE PHOSPHATASE 138 U/L (46-116); ALT/SGPT 22 U/L (7.0-40); AST/SGOT 14 U/L (<34); BILIRUBIN,TOTAL 0.5 MG/DL (0.3-1.2); BLOOD UREA NITROGEN 13 MG/DL (9-23); CALCIUM LEVEL 9.1 MG/DL (8.3-10.6); CARBON DIOXIDE LEVEL 29 MMOL/L (20-31); CHLORIDE LEVEL 105 MMOL/L (98-107); CHOLESTEROL LEVEL 125 MG/DL (<200); CHOLESTEROL RISK RATIO 2.22 (<5); CREATININE FOR GFR 0.77 MG/DL (0.55-1.30); GLOMERULAR FILTRATION RATE > 60.0 (>45); GLUCOSE, FASTING 95 MG/DL (74-106); HDL CHOLESTEROL 56.3 MG/DL (>40); LDL CHOLESTEROL 56.9 MG/DL (<100); NON-HDL-C 68.7 MG/DL; POTASSIUM SERUM 4.6 MMOL/L (3.5-5.1); SODIUM LEVEL 141 MMOL/L (136-145); TOTAL PROTEIN 6.6 G/DL (5.7-8.2); TRIGLYCERIDES LEVEL 59 MG/DL (<150)
[2023-01-15 04:07] LABS: LDL DIRECT 49 mg/dL (0-99)
== END ==
LOC: M LAB 07:16
PROVIDERS: ATTEND Physician Assistant
DX: E78.2 Mixed hyperlipidemia (principal); R06.02 Shortness of breath; I48.0 Paroxysmal atrial fibrillation; Z13.1 Encounter for screening for diabetes mellitus

== ENCOUNTER → 2023-03-15 | Outpatient (CLI) | payer OTHER, MEDICAID | LOC: M SLEEP 20:00 | PROVIDERS: ATTEND Nurse Practitioner Adult Health | DX: G47.33 Obstructive sleep apnea (adult) (pediatric) (principal) ==

== ENCOUNTER → 2023-04-20 | Outpatient (CLI) | payer OTHER, MEDICAID | LOC: M SLEEP 20:00 | PROVIDERS: ATTEND Nurse Practitioner Adult Health | DX: G47.33 Obstructive sleep apnea (adult) (pediatric) (principal) ==

== ENCOUNTER 2023-07-03 07:25 | Emergency (ER) | payer OTHER, MEDICAID ==
[~2023-07-03] VITALS: Ht 162.6 cm; Wt 95.7 kg
[2023-07-03] MEDS ORDERED: NORV5TAB PO (07:38)
[2023-07-03] MEDS ORDERED: BISO5TAB14 PO (07:38)
[2023-07-03] MEDS ORDERED: ECOT81TA5 PO (07:38)
[2023-07-03] MEDS ORDERED: CLOP75TA2 PO (07:38)
[2023-07-03] MEDS ORDERED: BANO25TA PO (09:39)
[2023-07-03] MEDS ORDERED: VENTAER INH (09:39)
[2023-07-03] MEDS ORDERED: ALBU2.5V10 INH (09:39)
[2023-07-03] MEDS ORDERED: ATOR40TA75 PO (09:39)
[2023-07-03] MEDS ORDERED: FLUT15.820 NARES (09:39)
[2023-07-03] MEDS ORDERED: FLUT12HF2 IH (09:39)
[2023-07-03] MEDS ORDERED: MULTTAB61 PO (09:39)
[2023-07-03] MEDS ORDERED: ACET1TAB55 PO (09:39)
[2023-07-03] MEDS ORDERED: HOME MED LIST COMPLETE! XX SCH (09:45)
[2023-07-03] MEDS: cefTRIAXone SOD 1 GM in D5W MINI-BAG PLUS 50 ML IV ONE (10:26)
[2023-07-03 10:39] LABS: BASO % 0.3 % (0.0-1.0); EOS # 0.1 10^3/uL (0.0-0.5); EOS % 0.8 % (0.0-3.0); HEMOGLOBIN 13.4 g/dl (12.0-15.5); LYMPH # 2.2 10^3/uL (1.5-5.0); LYMPH % 18.2 % (24.0-44.0); MEAN CORPUSCULAR HEMOGLOBIN 31.2 pg (27.0-33.0); MEAN CORPUSCULAR HGB CONC 33.5 g/dl (32.0-36.5); MONO # 0.8 10^3/uL (0.0-0.8); MONO % 6.4 % (2.0-8.0); NEUTROPHILS # 8.9 10^3/uL (1.5-8.5); NEUTROPHILS % 73.9 % (36.0-66.0); PLATELET COUNT, AUTOMATED 259 10^3/uL (150-450)
[2023-07-03 10:50] LABS: ERYTHROCYTE SEDIMENTATION RATE 18 mm/hr (0-30)
[2023-07-03 11:03] LABS: BLOOD UREA NITROGEN 11 MG/DL (9-23); CALCIUM LEVEL 10.1 MG/DL (8.3-10.6); CARBON DIOXIDE LEVEL 27 MMOL/L (20-31); CHLORIDE LEVEL 104 MMOL/L (98-107); CREATININE FOR GFR 0.77 MG/DL (0.55-1.30); GLOMERULAR FILTRATION RATE > 60.0 (>45); GLUCOSE, FASTING 96 MG/DL (74-106); POTASSIUM SERUM 4.3 MMOL/L (3.5-5.1); SODIUM LEVEL 139 MMOL/L (136-145)
[2023-07-03] MEDS ORDERED: AMOX875T2 PO (11:34)
[2023-07-03 11:51] VITALS: BP 130/76; TEMP 97.6; O2SAT 97
== END 2023-07-03 11:56 | disposition home or self-care (01) ==
LOC: M ED 07:25
DX: L03.114 Cellulitis of left upper limb (principal); W55.01XA Bitten by cat, initial encounter; Y92.009 Unspecified place in unspecified non-institutional (private) residence as the place of occurrence of the external cause; Y93.89 Activity, other specified; Y99.9 Unspecified external cause status; Z79.899 Other long term (current) drug therapy
CPT/HCPCS: 73130; 80048; 85025; 85652; 86140; 87040; 96365; 99284; J0696

== ENCOUNTER → 2023-07-27 | Outpatient (CLI) | payer OTHER, MEDICAID ==
[~2023-07-27] MED LIST changes: +ACET1TAB55 PO; +ALBU2.5V10 INH; +ATOR40TA75 PO; +BANO25TA PO; +BISO5TAB14 PO; +BUPR-597 PO; -BUPR300T92 PO; +CLOP75TA2 PO; +ECOT81TA5 PO; +FLUT12HF2 IH; +FLUT15.820 NARES; +MULTTAB61 PO; +NORV5TAB PO
== END ==
LOC: M WHC 08:27
PROVIDERS: ATTEND Nurse Practitioner Family
DX: Z12.31 Encounter for screening mammogram for malignant neoplasm of breast (principal)

== ENCOUNTER → 2023-08-24 | Outpatient (CLI) | payer OTHER, MEDICAID | LOC: M RAD 07:30 | PROVIDERS: ATTEND Family Medicine | DX: Z12.2 Encounter for screening for malignant neoplasm of respiratory organs (principal); Z87.891 Personal history of nicotine dependence ==

== ENCOUNTER → 2023-11-22 | Outpatient (CLI) | payer MEDICARE, OTHER, MEDICAID ==
[2023-11-22 08:50] LABS: BASO # 0.1 10^3/uL (0.0-0.2); BASO % 0.6 % (0.0-1.0); EOS # 0.2 10^3/uL (0.0-0.5); EOS % 1.8 % (0.0-3.0); HEMATOCRIT 41.9 % (36.0-47.0); HEMOGLOBIN 13.9 g/dl (12.0-15.5); LYMPH # 2.9 10^3/uL (1.5-5.0); LYMPH % 32.9 % (24.0-44.0); MEAN CORPUSCULAR HEMOGLOBIN 31.1 pg (27.0-33.0); MEAN CORPUSCULAR HGB CONC 33.2 g/dl (32.0-36.5); MEAN CORPUSCULAR VOLUME 93.7 fl (80.0-96.0); MONO # 0.8 10^3/uL (0.0-0.8); NEUTROPHILS # 4.9 10^3/uL (1.5-8.5); NEUTROPHILS % 55.4 % (36.0-66.0); PLATELET COUNT, AUTOMATED 259 10^3/uL (150-450); RED BLOOD COUNT 4.47 10^6/uL (4.00-5.40); WHITE BLOOD COUNT 8.8 10^3/uL (4.0-10.0)
[2023-11-22 09:22] LABS: ALBUMIN 3.9 G/DL (3.2-5.2); ALKALINE PHOSPHATASE 118 U/L (46-116); ALT/SGPT 19 U/L (7.0-40); AST/SGOT 10 U/L (<34); BILIRUBIN,DIRECT 0.2 MG/DL (<0.4); BILIRUBIN,TOTAL 0.5 MG/DL (0.3-1.2); BLOOD UREA NITROGEN 17 MG/DL (9-23); CALCIUM LEVEL 9.5 MG/DL (8.3-10.6); CARBON DIOXIDE LEVEL 30 MMOL/L (20-31); CHLORIDE LEVEL 108 MMOL/L (98-107); CHOLESTEROL LEVEL 125 MG/DL (<200); CHOLESTEROL RISK RATIO 2.73 (<5); CREATININE FOR GFR 0.82 MG/DL (0.55-1.30); GLOMERULAR FILTRATION RATE > 60.0 (>45); GLUCOSE, FASTING 91 MG/DL (74-106); HDL CHOLESTEROL 45.7 MG/DL (>40); LDL CHOLESTEROL 68.7 MG/DL (<100); NON-HDL-C 79.3 MG/DL; POTASSIUM SERUM 4.5 MMOL/L (3.5-5.1); SODIUM LEVEL 140 MMOL/L (136-145); TOTAL PROTEIN 6.6 G/DL (5.7-8.2); TRIGLYCERIDES LEVEL 53 MG/DL (<150)
== END ==
LOC: M LAB 07:51
PROVIDERS: ATTEND Internal Medicine Cardiovascular Disease
DX: E78.2 Mixed hyperlipidemia (principal); I48.0 Paroxysmal atrial fibrillation; R06.02 Shortness of breath; Z13.1 Encounter for screening for diabetes mellitus; I25.10 Atherosclerotic heart disease of native coronary artery without angina pectoris; E66.9 Obesity, unspecified; Z13.220 Encounter for screening for lipoid disorders

== ENCOUNTER → 2023-12-14 | Outpatient (CLI) | payer MEDICARE, OTHER, MEDICAID | LOC: M WHC 08:21 | PROVIDERS: ATTEND Physician Assistant Medical | DX: Z13.820 Encounter for screening for osteoporosis (principal); M81.0 Age-related osteoporosis without current pathological fracture ==

== ENCOUNTER 2024-01-12 09:37 | Emergency (ER) | payer MEDICARE, OTHER, MEDICAID ==
[~2024-01-12] VITALS: Ht 162.6 cm; Wt 89.1 kg
[2024-01-12 12:36] VITALS: BP 122/57; TEMP 97.5; O2SAT 96
== END 2024-01-12 13:24 | disposition home or self-care (01) ==
LOC: M ED 09:37
DX: S83.91XA Sprain of unspecified site of right knee, initial encounter (principal); X58.XXXA Exposure to other specified factors, initial encounter; Y92.512 Supermarket, store or market as the place of occurrence of the external cause; Y93.9 Activity, unspecified; Y99.9 Unspecified external cause status; I10 Essential (primary) hypertension; Z79.82 Long term (current) use of aspirin; Z79.899 Other long term (current) drug therapy

== ENCOUNTER → 2024-02-17 | Outpatient (CLI) | payer MEDICARE, OTHER, MEDICAID | LOC: M PLARAD 14:07 | PROVIDERS: ATTEND Orthopaedic Surgery | DX: M25.361 Other instability, right knee (principal); M71.21 Synovial cyst of popliteal space [Baker], right knee; S83.281A Other tear of lateral meniscus, current injury, right knee, initial encounter; Y93.9 Activity, unspecified; Y92.9 Unspecified place or not applicable ==

== ENCOUNTER → 2024-03-14 | Outpatient (CLI) | payer MEDICARE, OTHER, MEDICAID ==
[2024-03-14 08:11] LABS: BASO % 0.3 % (0.0-1.0); EOS # 0.1 10^3/uL (0.0-0.5); EOS % 1.4 % (0.0-3.0); HEMOGLOBIN 13.8 g/dl (12.0-15.5); LYMPH % 31.3 % (24.0-44.0); MEAN CORPUSCULAR HEMOGLOBIN 31.1 pg (27.0-33.0); MEAN CORPUSCULAR HGB CONC 32.9 g/dl (32.0-36.5); MEAN CORPUSCULAR VOLUME 94.6 fl (80.0-96.0); MONO # 0.9 10^3/uL (0.0-0.8); MONO % 8.8 % (2.0-8.0); NEUTROPHILS # 5.6 10^3/uL (1.5-8.5); PLATELET COUNT, AUTOMATED 251 10^3/uL (150-450); RED BLOOD COUNT 4.44 10^6/uL (4.00-5.40); WHITE BLOOD COUNT 9.6 10^3/uL (4.0-10.0)
[2024-03-14 08:45] LABS: ALKALINE PHOSPHATASE 110 U/L (35-104); ALT/SGPT 19 U/L (7.0-40); AST/SGOT 14 U/L (<34); BILIRUBIN,TOTAL 0.7 MG/DL (0.3-1.2); BLOOD UREA NITROGEN 15 MG/DL (9-23); CALCIUM LEVEL 9.9 MG/DL (8.3-10.6); CARBON DIOXIDE LEVEL 32 MMOL/L (20-31); CHLORIDE LEVEL 106 MMOL/L (98-107); CHOLESTEROL LEVEL 140 MG/DL (<200); CHOLESTEROL RISK RATIO 2.24 (<5); GLOMERULAR FILTRATION RATE > 60.0 (>45); GLUCOSE, FASTING 100 MG/DL (74-106); HDL CHOLESTEROL 62.4 MG/DL (>40); LDL CHOLESTEROL 63.4 MG/DL (<100); NON-HDL-C 77.6 MG/DL; POTASSIUM SERUM 4.5 MMOL/L (3.5-5.1); SODIUM LEVEL 140 MMOL/L (136-145); TOTAL PROTEIN 6.7 G/DL (5.7-8.2); TRIGLYCERIDES LEVEL 71 MG/DL (<150)
[2024-03-14 08:46] LABS: FREE T4 1.28 NG/DL (0.89-1.76)
[2024-03-14 08:47] LABS: THYROID STIMULATING HORMONE 1.206 uIU/ML (0.55-4.78)
== END ==
LOC: M LAB 07:43
PROVIDERS: ATTEND Nurse Practitioner Family
DX: I10 Essential (primary) hypertension (principal); E78.2 Mixed hyperlipidemia; E55.9 Vitamin D deficiency, unspecified

== ENCOUNTER → 2024-03-27 | Outpatient (CLI) | payer MEDICARE, OTHER, MEDICAID | LOC: M SOG 10:12 | PROVIDERS: ATTEND Orthopaedic Surgery | DX: M25.561 Pain in right knee (principal); M17.0 Bilateral primary osteoarthritis of knee ==

== ENCOUNTER → 2024-04-21 | Outpatient (CLI) | payer MEDICARE, OTHER, MEDICAID ==
[2024-04-21 15:10] LABS: LIPASE 33 U/L (12-53)
[2024-04-21 15:12] LABS: ALBUMIN 3.9 G/DL (3.2-5.2); ALKALINE PHOSPHATASE 113 U/L (35-104); ALT/SGPT 20 U/L (7.0-40); AST/SGOT 15 U/L (<34); BILIRUBIN,TOTAL 0.4 MG/DL (0.3-1.2); BLOOD UREA NITROGEN 16 MG/DL (9-23); CALCIUM LEVEL 9.4 MG/DL (8.3-10.6); CARBON DIOXIDE LEVEL 28 MMOL/L (20-31); CHLORIDE LEVEL 104 MMOL/L (98-107); CREATININE FOR GFR 0.74 MG/DL (0.55-1.30); GLOMERULAR FILTRATION RATE > 60.0 (>45); GLUCOSE, FASTING 90 MG/DL (74-106); POTASSIUM SERUM 4.2 MMOL/L (3.5-5.1); SODIUM LEVEL 141 MMOL/L (136-145); TOTAL PROTEIN 6.8 G/DL (5.7-8.2)
[2024-04-21 15:13] LABS: BASO % 0.3 % (0.0-1.0); EOS # 0.2 10^3/uL (0.0-0.5); EOS % 1.5 % (0.0-3.0); HEMATOCRIT 40.8 % (36.0-47.0); HEMOGLOBIN 13.5 g/dl (12.0-15.5); LYMPH # 3.1 10^3/uL (1.5-5.0); MEAN CORPUSCULAR HEMOGLOBIN 31.3 pg (27.0-33.0); MEAN CORPUSCULAR HGB CONC 33.1 g/dl (32.0-36.5); MEAN CORPUSCULAR VOLUME 94.7 fl (80.0-96.0); MONO # 0.9 10^3/uL (0.0-0.8); MONO % 7.4 % (2.0-8.0); NEUTROPHILS # 7.3 10^3/uL (1.5-8.5); NEUTROPHILS % 63.5 % (36.0-66.0); PLATELET COUNT, AUTOMATED 271 10^3/uL (150-450); RED BLOOD COUNT 4.31 10^6/uL (4.00-5.40); WHITE BLOOD COUNT 11.5 10^3/uL (4.0-10.0)
== END ==
LOC: M LAB 14:20
PROVIDERS: ATTEND Nurse Practitioner Family
DX: R10.9 Unspecified abdominal pain (principal)

== ENCOUNTER → 2024-05-18 | Outpatient (CLI) | payer MEDICARE, OTHER, MEDICAID | LOC: M RAD 09:05 | PROVIDERS: ATTEND Nurse Practitioner Family | DX: K76.0 Fatty (change of) liver, not elsewhere classified (principal); R10.9 Unspecified abdominal pain ==

== ENCOUNTER → 2024-10-13 | Outpatient (CLI) | payer MEDICARE, OTHER ==
[~2024-10-13] MED LIST changes: -AMBI10TA PO; -AMBI5TAB PO; -BUPR-597 PO; +BUPR-766 PO; +ZOLP-532 PO; +ZOLP-533 PO
== END ==
LOC: M WHC 15:18
PROVIDERS: ATTEND Nurse Practitioner Family
DX: Z12.31 Encounter for screening mammogram for malignant neoplasm of breast (principal)

== ENCOUNTER → 2024-10-19 | Outpatient (CLI) | payer MEDICARE, OTHER ==
[2024-10-19 07:49] LABS: BASO # 0.0 10^3/uL (0.0-0.2); BASO % 0.3 % (0.0-1.0); EOS # 0.2 10^3/uL (0.0-0.5); EOS % 1.8 % (0.0-3.0); LYMPH # 2.7 10^3/uL (1.5-5.0); LYMPH % 29.3 % (24.0-44.0); MONO # 0.7 10^3/uL (0.0-0.8); MONO % 7.7 % (2.0-8.0); NEUTROPHILS # 5.6 10^3/uL (1.5-8.5); NEUTROPHILS % 60.6 % (36.0-66.0); PLATELET COUNT, AUTOMATED 223 10^3/uL (150-450)
[2024-10-19 08:05] LABS: ALT/SGPT 19.0 U/L (7.0-40); AST/SGOT 19.0 U/L (<34); CALCIUM LEVEL 8.9 MG/DL (8.3-10.6); CARBON DIOXIDE LEVEL 30.0 MMOL/L (20-31); CHLORIDE LEVEL 104.0 MMOL/L (98-107); CHOLESTEROL LEVEL 120.0 MG/DL (<200); CHOLESTEROL RISK RATIO 2.14 (<5); CREATININE FOR GFR 0.8 MG/DL (0.55-1.30); GLOMERULAR FILTRATION RATE 81.2 (>45); LDL CHOLESTEROL 51.9 MG/DL (<100); MAGNESIUM LEVEL 1.9 MG/DL (1.8-2.4); NON-HDL-C 64.1 MG/DL; POTASSIUM SERUM 4.2 MMOL/L (3.5-5.1); SODIUM LEVEL 142.0 MMOL/L (136-145); TRIGLYCERIDES LEVEL 61.0 MG/DL (<150)
[2024-10-19 08:07] LABS: FREE T4 1.08 NG/DL (0.89-1.76)
[2024-10-19 08:27] LABS: ESTIMATED AVERAGE GLUCOSE 114.0 MG/DL (60-110)
== END ==
LOC: M LAB 06:50
PROVIDERS: ATTEND Nurse Practitioner Family
DX: I10 Essential (primary) hypertension (principal); E78.2 Mixed hyperlipidemia; E55.9 Vitamin D deficiency, unspecified; R73.01 Impaired fasting glucose; R53.83 Other fatigue

== ENCOUNTER → 2025-01-16 | Outpatient (CLI) | payer MEDICARE, OTHER ==
[~2025-01-16] MED LIST changes: -ZOLP5TAB PO; +ZOLP5TAB9 PO
== END ==
LOC: M SOG 08:13
PROVIDERS: ATTEND Orthopaedic Surgery
DX: M25.561 Pain in right knee (principal); M17.11 Unilateral primary osteoarthritis, right knee

== ENCOUNTER → 2025-01-16 | Outpatient (REF) | payer OTHER ==
[2025-01-18 14:32] LABS: HPV APTIMA Not Detected (Not Detected)
== END ==
LOC: M SFHCWAGY 13:05
PROVIDERS: ATTEND Nurse Practitioner Family
DX: Z12.4 Encounter for screening for malignant neoplasm of cervix (principal)
CPT/HCPCS: 87624; G0123

== ENCOUNTER → 2025-01-30 | Outpatient (CLI) | payer OTHER ==
[2025-01-30 10:40] LABS: BASO # 0.0 10^3/uL (0.0-0.2); BASO % 0.3 % (0.0-1.0); EOS # 0.1 10^3/uL (0.0-0.5); EOS % 1.1 % (0.0-3.0); LYMPH # 2.8 10^3/uL (1.5-5.0); LYMPH % 26.9 % (24.0-44.0); MONO # 0.9 10^3/uL (0.0-0.8); MONO % 9.1 % (2.0-8.0); NEUTROPHILS # 6.5 10^3/uL (1.5-8.5); NEUTROPHILS % 62.3 % (36.0-66.0); PLATELET COUNT, AUTOMATED 227 10^3/uL (150-450)
== END ==
LOC: M LAB 10:02
PROVIDERS: ATTEND Internal Medicine Cardiovascular Disease
DX: I25.10 Atherosclerotic heart disease of native coronary artery without angina pectoris (principal); I48.0 Paroxysmal atrial fibrillation; R06.09 Other forms of dyspnea; E66.9 Obesity, unspecified

== ENCOUNTER → 2025-02-08 | Outpatient (CLI) | payer OTHER | LOC: M RAD 07:15 | PROVIDERS: ATTEND Nurse Practitioner Adult Health | DX: Z87.891 Personal history of nicotine dependence (principal) ==

== ENCOUNTER → 2025-02-19 | Outpatient (CLI) | payer OTHER | LOC: M PLAIMG 11:09 | PROVIDERS: ATTEND Nurse Practitioner Family | DX: M48.9 Spondylopathy, unspecified (principal) ==

== ENCOUNTER 2025-02-20 09:41 | Emergency (ER) | payer OTHER ==
[~2025-02-20] VITALS: Ht 162.6 cm; Wt 88.6 kg
[2025-02-20 09:42] VITALS: TEMP 99
[2025-02-20 11:11] VITALS: BP 143/68; O2SAT 97
== END 2025-02-20 11:14 | disposition home or self-care (01) ==
LOC: M ED 09:41
DX: S40.011A Contusion of right shoulder, initial encounter (principal); S70.01XA Contusion of right hip, initial encounter; S80.01XA Contusion of right knee, initial encounter; W00.0XXA Fall on same level due to ice and snow, initial encounter; Y92.9 Unspecified place or not applicable; Y93.9 Activity, unspecified; Y99.9 Unspecified external cause status; I25.10 Atherosclerotic heart disease of native coronary artery without angina pectoris; Z95.5 Presence of coronary angioplasty implant and graft; M19.011 Primary osteoarthritis, right shoulder; M17.11 Unilateral primary osteoarthritis, right knee; Z79.899 Other long term (current) drug therapy